=== PATIENT | female | born 1955 | race Caucasian/White ===

== ENCOUNTER 2019-10-09 01:34 | Emergency (ER) | payer MEDICARE, SELFPAY ==
--- NOTE | ~2019-10-09 | XR_ITS ---
EXAMINATION: XR ribs RT 2V w CXR 2V DATE: 10/09/2019 02:37 INDICATION: Right chest wall pain. TECHNIQUE: Frontal and lateral views of the chest and 3 views of the right ribs were obtained. COMPARISON: None. FINDINGS: CHEST TWO VIEWS: There is mild elevation of right hemidiaphragm. There is mild atelectasis in right m id and lower lung zones. No pleural effusion or pneumothorax. The heart size is normal. Surgical clip s overlie the right hilum. Surgical clips in the right upper quadrant are likely from cholecystectomy . There is a 2.9 cm sclerotic lesion in proximal left humerus. RIGHT RIBS: There are old healed fractures of right third and fourth ribs. IMPRESSION: 1. No acute rib fracture. 2. Mild atelectasis in right mid and lower lung zones. 3. Mild elevation of right hemidiaphragm. 4. Sclerotic lesion in proximal left humerus. The differential diagnosis includes benign lesions such as enchondroma, osteonecrosis, and benign bone island and less likely metastatic disease. Reviewed, dictated and finalized at location A. IMPRESSION: 1. No acute rib fracture. 2. Mild atelectasis in right mid and lower lung zones. 3. Mild elevation of right hemidiaphragm. 4. Sclerotic lesion in proximal left humerus. The differential diagnosis includ es benign lesions such as enchondroma, osteonecrosis, and benign bone island an d less likely metastatic disease.
[2019-10-09 01:35] VITALS: BP 162/82; PULSE 88; RESP 18; TEMP 36.5; O2SAT 100
--- NOTE | 2019-10-09 01:46 | ED.FALL ---
HPI - Fall General Chief Complaint: Fall Stated Complaint: right breast pain Time Seen by Provider: 10/09/19 01:45 Source: patient Mode of arrival: ambulatory Limitations: no limitations History of Present Illness HPI Narrative: Patient is a 64-year-old female who presents for evaluation of right-sided chest wall pain and right breast pain following a fall. Patient states that she tripped and fell on the , landing on her right side and stating that most of her weight landed onto her breast. Patient denies any bruising or rash, but states she has been quite sore. She denies any cough or shortness of breath. She denies any central chest pain, shoulder pain, jaw pain. Patient only has pain if she moves or leans forward. Patient has taken naproxen without much improvement in her symptoms. No other arm pain, hip pain, other extremity pain. No head trauma or loss of consciousness. Related Data Home Medications Medication Instructions Recorded Confirmed fluticasone propionate INTRANASAL 10/09/19 rosuvastatin mg 10/09/19 sertraline mg 10/09/19 Allergies Allergy/AdvReac Type Severity Reaction Status Date / Time metronidazole Allergy Unknown Unknown Verified 10/09/19 01:44 codeine AdvReac Intermediate Vomiting Verified 10/09/19 01:44 Review of Systems Review of Systems: Narrative: CONSTITUTIONAL: Denies fever CARDIOVASCULAR: Denies chest pain, reports right breast pain RESPIRATORY: Denies cough or dyspnea. GASTROINTESTINAL: Denies abdominal pain SKIN: Denies rash MUSCULOSKELETAL: Denies back pain NEUROLOGIC: Denies headache PMFSH Past Medical History Medical History Histoplasmosis Surgical History Surgical History (Updated 10/09/19 @ 02:11 by Maria Antonia Gomez MD) History of carpal tunnel surgery Hx of cholecystectomy Social History Social History (Updated 10/09/19 @ 02:11 by Maria Antonia Gomez MD) Smoking status: Never smoker Alcohol intake: never Substance use: never Gender identity (if verbalized by the patient): Female Exam Narrative: Exam Narrative: GENERAL: Awake, alert, conversant HEAD: Normocephalic, atraumatic. EYES: PERRLA and EOMI. ENT: Nares clear, no rhinorrhea or epistaxis. Mucous membranes moist. NECK: Supple. CHEST: No respiratory distress, breathing even and non labored, right-sided breast tenderness, no ecchymoses, areole and nipple appear normal, no contusion, no hematoma, no discharge from the nipple, no axillary lymphadenopathy, no central chest wall tenderness, no upper chest tenderness HEART: Regular rate, sinus rhythm ABDOMEN:Non distended, non tender EXTREMITIES: Normal range of motion. No edema. SKIN: Warm, dry, no rash. NEURO:No focal deficits. Alert and oriented x3 Course Vital Signs Vital signs: Vital Signs Temperature 36.5 C 10/09/19 01:35 Pulse Rate 88 10/09/19 01:35 Respiratory Rate 18 10/09/19 01:35 Blood Pressure 162/82 H 10/09/19 01:35 Pulse Oximetry 100 10/09/19 01:35 Temperature 36.5 C 10/09/19 01:35 Pulse Rate 75 10/09/19 03:24 Respiratory Rate 16 10/09/19 03:24 Blood Pressure 161/83 H 10/09/19 03:24 Pulse Oximetry 98 10/09/19 03:24 MDM - Fall MDM Narrative Medical decision making narrative: Patient presented for evaluation of chest wall pain following a fall. Patient without any anginal type symptoms. Pain is only with movement and is reproducible on exam making musculoskeletal etiology most likely. Breast exam is normal. No evidence of hematoma, vesicular changes, abnormal breast appearance, mass on exam. No axillary lymphadenopathy. No evidence of infection or cellulitic changes. There again is chest wall tenderness which exactly reproduces pain. Chest x-ray obtained and shows no acute rib fractures, pneumothorax, consolidation. Patient will be discharged home, advised to take anti-inflammatories and follow-up with her primary care provider. Diff
[2019-10-09] MEDS: KETOROLAC (*BKC) 60 MG/2 ML VIAL 30 MG IM (02:11)
--- NOTE | 2019-10-09 02:21 | PC.NURSE ---
Patient being taken to radiology.
[2019-10-09 03:24] VITALS: BP 161/83; PULSE 75; RESP 16; O2SAT 98
== END 2019-10-09 03:26 | disposition home or self-care (01) ==
PROVIDERS: Emergency Provider Emergency Medicine; PCP Physician Assistant
DX: N64.4 Mastodynia (principal)
CPT/HCPCS: 71046; 71100; 96372; 99283; J1885

== ENCOUNTER 2019-11-28 14:40 | Emergency (ER) | payer MEDICARE, SELFPAY ==
--- NOTE | ~2019-11-28 | XR_ITS ---
XR chest 2V DATE: 11/28/2019 16:57 INDICATION: Palpitations for 3 days TECHNIQUE: PA and lateral views COMPARISON: 10/09/2019 FINDINGS: There is moderately prominent elevation the right leaf of the diaphragm. There is discoid a telectasis or scarring in the right mid and lower lung zone. These findings are stable since 0. No pulmonary infiltrate or consolidation, pleural effusion or pneumothorax or pulmonary vascular rambo estion. Heart size is normal. Surgical clips in the right posterior upper mediastinum. Again noted is a sclerotic lesion at the proximal left humerus, benign in appearance, which may be se condary to bone infarct or cartilaginous tumor. Osteosclerotic metastatic lesion is not excluded but is less likely; there is no corresponding evidence of a sclerotic metastasis elsewhere. There is distention scoliosis and degenerative spurring of the thoracic spine. There is moderate diff use osteopenia. Surgical clips, right upper quadrant, likely due to cholecystectomy. IMPRESSION: Chronic elevation right diaphragm Chronic discoid atelectasis or more likely scarring in the right mid and lower lung zones No active cardiopulmonary disease or significant change since 10/09/2019 Reviewed, dictated and finalized at location A.
--- NOTE | 2019-11-28 14:48 | ECG_ITS ---
Measurements Intervals [place] Rate: 104 P: 46 AR: 144 QRS: -22 QRSD: 90 T: 57 QT: 324 QTc: 428 Interpretive Statements SINUS TACHYCARDIA LOW QRS VOLTAGE IN PRECORDIAL LEADS LEFT VENTRICULAR HYPERTROPHY AND ST-T CHANGE BORDERLINE R WAVE PROGRESSION, ANTERIOR LEADS MINIMAL Q WAVES- HIGH LATERAL LEADS BORDERLINE ECG Electronically Signed On 11-28-2019 15:01:25 CDT by Caio Rey D.O.
[2019-11-28 15:27] VITALS: BP 128/72; PULSE 109; RESP 17; TEMP 37.1; O2SAT 97
[2019-11-28 15:40] LABS: Basophils Absolute Auto 0.1 K/mm3 (0.0-0.1); Eosinophils Absolute Auto 0.1 K/mm3 (0-0.3); Eosinophils Percent Auto 1.5 % (0-4.4); Hematocrit 38.6 % (37.0-47.0); Hemoglobin 12.8 g/dL (12.0-15.0); Immature Granulocyte Absolute 0.01 K/mm3 (0.00-0.031); Immature Granulocyte Percent A 0.2 % (0-0.5); Immature Platelet Fraction Pct 2.2 % (0.9-11.2); Lymphocytes Absolute Auto 1.34 K/mm3 (0.9-3.2); Lymphocytes Percent Auto 21.6 % (18.3-44.2); Mean Corpuscular HGB Conc 33.2 g/dl (32-36); Mean Corpuscular Hemoglobin 28.6 pg (26-34); Mean Corpuscular Volume 86.4 fl (80-100); Mean Platelet Volume 9.8 fl (7.4-10.4); Monocytes Absolute Auto 0.6 K/mm3 (0.1-0.6); Monocytes Percent Auto 9.2 % (2.6-8.5); Neutrophils Absolute Auto 4.1 K/mm3 (1.3-6.7); Neutrophils Percent Auto 66.5 % (45.5-73.1); Platelet Count Result 288 k/mm3 (150-375); Red Blood Count 4.47 M/mm3 (4.2-5.4); Red Cell Distribution Width 13.7 % (11.5-14.5); White Blood Count 6.2 K/mm3 (4.5-10.0)
[2019-11-28 15:50] LABS: Anion Gap 13 mmol/L (8-16); Blood Urea Nitrogen 15 mg/dL (7-17); Calcium 9.3 mg/dL (8.4-10.2); Carbon Dioxide 25 mmol/L (22-30); Chloride 103 mmol/L (98-107); Estimated CRCL calculation 66 ml/min; Estimated Glomerular Filt Rate > 60; Glucose 111 mg/dL (65-105); Potassium 4.3 mmol/L (3.4-5.0); Sodium 141 mmol/L (137-145)
[2019-11-28 15:53] LABS: Prothrombin Time 12.7 Seconds (11.1-14.7)
[2019-11-28 15:54] LABS: Partial Thromboplastin Time 26.3 SECONDS (22.3-36.8)
[2019-11-28 16:06] LABS: Troponin I < 0.012 ng/mL (0.000-0.034)
--- NOTE | 2019-11-28 16:28 | ED.ARRPALP ---
HPI - Arrhythmia/Palpitations General Chief Complaint: Arrhythmia/Palpitations Stated Complaint: my heart is fluttering Time Seen by Provider: 11/28/19 16:18 Source: patient Mode of arrival: ambulatory Limitations: no limitations History of Present Illness HPI narrative: This is a 64-year-old female that presents to the emergency department for palpitations x2 days. Also reports feeling short of breath with exertion. Denies fever, cough, chest pain, or lower extremity edema. Related Data Home Medications Medication Instructions Recorded Confirmed fluticasone propionate INTRANASAL 10/09/19 rosuvastatin mg 10/09/19 sertraline mg 10/09/19 Allergies Allergy/AdvReac Type Severity Reaction Status Date / Time metronidazole Allergy Unknown Unknown Verified 11/28/19 16:33 codeine AdvReac Intermediate Vomiting Verified 11/28/19 16:33 Review of Systems Review of Systems: Narrative: CONSTITUTIONAL: Denies fever ENT: Denies rhinorrhea, congestion CARDIOVASCULAR: Reports palpitations. Denies chest pain, or edema. RESPIRATORY: Reports dyspnea. Denies cough All systems reviewed & are unremarkable except as noted in HPI and below PMFSH Past Medical History Medical History (Updated 11/28/19 @ 19:04 by Kimberly Lin PA-C) Histoplasmosis History of hyperlipidemia Surgical History Surgical History (Updated 10/09/19 @ 02:11 by Maria Antonia Gomez MD) History of carpal tunnel surgery Hx of cholecystectomy Social History Social History (Updated 10/09/19 @ 02:11 by Maria Antonia Gomez MD) Smoking status: Never smoker Alcohol intake: never Substance use: never Gender identity (if verbalized by the patient): Female Exam Narrative: Exam Narrative: GENERAL: Well-appearing, obese, and in no acute distress. HEAD: Normocephalic, atraumatic. EYES: EOMI. NECK: Supple. No adenopathy or masses. No carotid bruits or JVD CHEST: Clear to auscultation. No respiratory distress. No wheezes rales or rhonchi HEART: Regular rate and rhythm. No murmur heard. Normal peripheral pulses. EXTREMITIES: Normal range of motion. No edema. SKIN: Warm, dry, no rash. NEURO: No focal deficits. Alert and oriented x3. PSYCH: Normal mood and affect Course Consultations Consultation #1: Spoke with Dr. Escudero who will follow-up in clinic. Date: 11/28/19 Time: 19:04 Vital Signs Vital signs: Vital Signs Temperature 98.7 F 11/28/19 15:27 Pulse Rate 109 H 11/28/19 15:27 Respiratory Rate 17 11/28/19 15:27 Blood Pressure 128/72 11/28/19 15:27 Pulse Oximetry 97 11/28/19 15:27 Temperature 98.7 F 11/28/19 15:27 Pulse Rate 85 11/28/19 18:55 Respiratory Rate 24 H 11/28/19 18:55 Blood Pressure 170/104 H 11/28/19 18:55 Pulse Oximetry 98 11/28/19 18:55 MDM - Arrhythmia/Palpitations MDM Narrative Medical decision making narrative: Patient presents to the emergency department for feeling of palpitations over the last couple of days. Was also reporting some shortness of breath. Patient's blood pressure has been elevated to the 120s to 160s systolic. Otherwise vitals are normal. Patient's heart rate has been mostly in the 80s. She is in normal sinus rhythm. I did see 1 PVC while she was on the monitor. CBC and metabolic panel without concerning findings. Baseline and 3-hour troponin are negative. BNP is normal. D-dimer is negative. Chest x-ray is without acute findings. EKG is without concerning changes. Patient able to ambulate in the ED and maintain normal oxygen saturation. Patient was updated on case findings. Spoke with Dr. Escudero who will follow-up in clinic. Patient is stable and felt appropriate for the outpatient evaluation. She was given warnings to return to the ER Lab Data Attestation: I reviewed the patient's lab results. Result diagrams: 11/28/19 15:31 11/28/19 15:31 Labs: Lab Results 11/28/19 11/28/19 11/28/19 Range/Units 15:31 15:31 15:31 WBC 6.2
[2019-11-28 16:34] VITALS: BP 167/109; PULSE 97; RESP 20; O2SAT 97
[2019-11-28 16:43] LABS: D Dimer 0.35 ug/mL (<0.48)
[2019-11-28 16:54] LABS: NT Pro B Type Natriuretic Pept 78 PG/ML (5-100)
[2019-11-28 18:26] LABS: Troponin I < 0.012 ng/mL (0.000-0.034)
[2019-11-28 18:55] VITALS: BP 170/104; PULSE 85; RESP 24; O2SAT 98
[2019-11-28 19:05] VITALS: BP 162/100; BP 164/104
[2019-11-28 19:25] VITALS: BP 168/81; PULSE 88; RESP 17; O2SAT 99
== END 2019-11-28 19:25 | disposition home or self-care (01) ==
PROVIDERS: Emergency Medicine; Physician Assistant; Emergency Provider Emergency Medicine; PCP Physician Assistant
DX: R00.2 Palpitations (principal); I10 Essential (primary) hypertension; E78.5 Hyperlipidemia, unspecified; B39.9 Histoplasmosis, unspecified; R00.0 Tachycardia, unspecified; R94.31 Abnormal electrocardiogram [ECG] [EKG]; I51.7 Cardiomegaly; R06.02 Shortness of breath
CPT/HCPCS: 36415; 71046; 80048; 83880; 84484; 85025; 85055; 85380; 85610; 85730; 93005; 99284

== ENCOUNTER 2020-12-16 13:28 | Outpatient (CLI) | payer MEDICARE, SELFPAY ==
--- NOTE | ~2020-12-16 | MM_ITS ---
EXAMINATION: MM screening hill BI w joaquin HISTORY: Screening mammogram TECHNIQUE: Craniocaudal and mediolateral oblique 3-D tomosynthesis images were obtained and synthetic 2-D images were generated. CAD analysis was submitted and interpreted. COMPARISON: 02/01/2019, 02/01/2017 bilateral digital screening mammogram examinations BREAST PARENCHYMAL COMPOSITION: The breasts are almost entirely fatty. FINDINGS: There is no evidence of suspicious mass, calcification, or architectural distortion to sugg est malignancy in either breast. There has been no suspicious interval change. IMPRESSION: 1. No mammographic evidence of malignancy. 2. Recommend routine screening mammography in one year. BI-RADS Category 1: Negative Reviewed, dictated and finalized at location A.
--- NOTE | ~2020-12-16 | DEXA_ITS ---
Bone Density Report Name: Ruma Christiansen Age: 65 Sex: Female Ethnicity: White Date of : 1955 Indication: postmenopausal; inflammatory bowel disease; prior fracture; Referring Provider: StevenIrma Study: Bone densitometry was performed. Exam Date: December 16, 2020 Accession number: [id number] Bone Density: Region BMD T-score Z-score Classification AP Spine (L1-L4) 1.004 -0.4 1.4 Normal Femoral Neck (Left) 0.596 -2.3 -0.7 Osteopenia Total Hip (Left) 0.829 -0.9 0.4 Normal Total Hip Bilateral Avg 0.838 -0.8 0.5 Normal Femoral Neck (Right) 0.618 -2.1 -0.5 Osteopenia Total Hip (Right) 0.845 -0.8 0.5 Normal World Health Organization criteria for BMD impression classify patients as: Normal (T-score at or above -1.0), Osteopenia (T-score between -1.0 and -2.5), or Osteoporosis (T-score at or below -2.5). 10-year Fracture Risk(1): Major Osteoporotic Fracture 16% Hip Fracture 2.7% Reported Risk Factors: [place] (), Neck BMD=0.596, BMI=45.3, previous fracture (1) FRAX(R) Version 3.08. Fracture probability calculated for an untreated patient. Fracture probability may be lower if the patient has received treatment. Previous Exams: Region Exam Age BMD T-score BMD Change BMD Change Date g/cm2 vs Baseline vs Previous AP Spine(L1-L4) 12/16/2020 65 1.004 -0.4 -0.002(-0.2%) -0.002(-0.2%) 05/21/2017 61 1.006 -0.4 Total Hip(Left) 12/16/2020 65 0.829 -0.9 -0.068(-7.6%)* -0.068(-7.6%)* 05/21/2017 61 0.897 -0.4 Total Hip(Right) 12/16/2020 65 0.845 -0.8 -0.031(-3.5%)* -0.031(-3.5%)* 05/21/2017 61 0.876 -0.5 *Denotes significance at 95% confidence level, LSC for AP Spine = 0.022 g/cm2, LSC for Total Hip = 0.027 g/cm2 Clinical Information Provided by Patient: Has had a low trauma fracture Has used the following medications: Vitamin D, Calcium Has the following medical conditions: Inflammatory bowel diseases Patient maximum height was 61 Menopause Age: 49 No regular weight bearing exercise Drinks caffeinated beverages Onset of menses at age 11 Number of children 1 Impression: The patient has low bone mass, based on the Left Femoral Neck T-score. The patient has an estimated ten-year risk of hip fracture of 2.7% and an estimated ten-year risk of major fracture of 16%, based on the WHO FRAX algorithm. The patient has risk factors, including: previous fracture. The BMD for the Total Hip(Left) decreased, changing by -7.6
== END 2020-12-16 13:29 | disposition home or self-care (01) ==
LOC: ANHIMG 13:30
PROVIDERS: PCP Internal Medicine; Visit Provider Internal Medicine
DX: Z12.31 Encounter for screening mammogram for malignant neoplasm of breast (principal); Z78.0 Asymptomatic menopausal state; M85.89 Other specified disorders of bone density and structure, multiple sites
CPT/HCPCS: 77063; 77067; 77080

== ENCOUNTER 2021-12-23 15:44 | Outpatient (CLI) | payer MEDICARE, SELFPAY ==
[2021-12-23 15:58] LABS: Basophils Percent Auto 0.2 % (0.2-1.2); Hematocrit 35.3 % (37.0-47.0); Hemoglobin 11.1 g/dL (12.0-15.0); Immature Granulocyte Absolute 0.05 K/mm3 (0.00-0.031); Immature Granulocyte Percent A 0.4 % (0-0.5); Immature Reticulocyte Fraction 21.7 % (3.0-15.9); Lymphocytes Absolute Auto 1.01 K/mm3 (0.9-3.2); Lymphocytes Percent Auto 8.1 % (18.3-44.2); Mean Corpuscular HGB Conc 31.4 g/dl (32-36); Mean Corpuscular Hemoglobin 24.6 pg (26-34); Mean Corpuscular Volume 78.1 fl (80-100); Mean Platelet Volume 8.8 fl (7.4-10.4); Monocytes Absolute Auto 0.7 K/mm3 (0.1-0.6); Monocytes Percent Auto 5.9 % (2.6-8.5); Neutrophils Absolute Auto 10.6 K/mm3 (1.3-6.7); Neutrophils Percent Auto 85.4 % (45.5-73.1); Platelet Count Result 412 k/mm3 (150-375); Red Blood Count 4.52 M/mm3 (4.2-5.4); Reticulocyte Hemoglobin Conten 24.7 pg (28.2-35.7); Reticulocyte Percent 1.56 % (0.7-4.3); Reticulocytes Absolute 0.07 B/L (32.2-175.7); White Blood Count 12.4 K/mm3 (4.5-10.0)
[2021-12-23 16:04] LABS: Platelet Estimate Increased (Adequate); Poikilocytosis 1+ (NORMAL); Schistocytes None Seen (NORMAL); Target Cells 1+ (NORMAL)
[2021-12-23 16:28] LABS: Iron 37 ug/dL (37-170)
[2021-12-23 16:30] LABS: Alanine Aminotransferase 16 U/L (6-35); Albumin Level 4.7 g/dL (3.5-5.1); Alkaline Phosphatase 94 U/L (38-126); Anion Gap 12 mmol/L (8-16); Aspartate Amino Transferase 24 U/L (14-36); Bilirubin,Total 0.4 mg/dL (0.2-1.3); Blood Urea Nitrogen 22 mg/dL (7-17); Calcium 8.7 mg/dL (8.4-10.2); Carbon Dioxide 24 mmol/L (22-30); Chloride 100 mmol/L (98-107); Estimated Glomerular Filt Rate > 60; Glucose 114 mg/dL (65-110); Lactate Dehydrogenase 166 U/L (120-246); Potassium 4.3 mmol/L (3.4-5.0); Sodium 136 mmol/L (137-145)
[2021-12-23 16:38] LABS: Percent Iron Saturation 8 % (20-50)
[2021-12-23 17:04] LABS: Ferritin 5.48 ng/mL (11.1-264)
[2021-12-23 17:36] LABS: Folic Acid 16.7 ng/mL (2.76->20)
[2021-12-26 08:49] LABS: Methylmalonic Acid 453 nmol/L (87-318)
== END 2021-12-23 15:45 | disposition home or self-care (01) ==
LOC: ANHLAB 15:46
PROVIDERS: PCP Internal Medicine; Visit Provider Internal Medicine Hematology & Oncology
DX: D64.9 Anemia, unspecified (principal)
CPT/HCPCS: 36415; 80053; 82607; 82728; 82746; 83540; 83550; 83615; 83921; 85025; 85046

== ENCOUNTER 2022-02-10 13:42 | Outpatient (CLI) | payer MEDICARE, SELFPAY ==
[2022-02-10 14:04] LABS: Basophils Percent Auto 0.6 % (0.2-1.2); Eosinophils Absolute Auto 0.1 K/mm3 (0-0.3); Eosinophils Percent Auto 1.5 % (0-4.4); Hematocrit 36.9 % (37.0-47.0); Immature Granulocyte Absolute 0.01 K/mm3 (0.00-0.031); Immature Granulocyte Percent A 0.2 % (0-0.5); Immature Reticulocyte Fraction 12.6 % (3.0-15.9); Lymphocytes Absolute Auto 0.86 K/mm3 (0.9-3.2); Lymphocytes Percent Auto 16.2 % (18.3-44.2); Mean Corpuscular HGB Conc 32.5 g/dl (32-36); Mean Corpuscular Hemoglobin 27.5 pg (26-34); Mean Corpuscular Volume 84.4 fl (80-100); Mean Platelet Volume 8.6 fl (7.4-10.4); Monocytes Absolute Auto 0.6 K/mm3 (0.1-0.6); Monocytes Percent Auto 11.7 % (2.6-8.5); Neutrophils Absolute Auto 3.7 K/mm3 (1.3-6.7); Neutrophils Percent Auto 69.8 % (45.5-73.1); Platelet Count Result 238 k/mm3 (150-375); Red Blood Count 4.37 M/mm3 (4.2-5.4); Red Cell Distribution Width 20.9 % (11.5-14.5); Reticulocyte Hemoglobin Conten 33.9 pg (28.2-35.7); Reticulocyte Percent 2.09 % (0.7-4.3); Reticulocytes Absolute 0.09 B/L (32.2-175.7); White Blood Count 5.3 K/mm3 (4.5-10.0)
[2022-02-10 17:34] LABS: Lactate Dehydrogenase 172 U/L (120-246)
[2022-02-10 18:19] LABS: Iron 46 ug/dL (37-170)
[2022-02-10 18:43] LABS: Folic Acid > 20.0 ng/mL (2.76->20)
[2022-02-10 18:46] LABS: Percent Iron Saturation 12 % (20-50)
[2022-02-13 03:51] LABS: Methylmalonic Acid 271 nmol/L (87-318)
== END 2022-02-10 13:43 | disposition home or self-care (01) ==
LOC: ANHLAB 13:43
PROVIDERS: PCP Internal Medicine; Visit Provider Internal Medicine Hematology & Oncology
DX: D64.9 Anemia, unspecified (principal)
CPT/HCPCS: 36415; 82607; 82728; 82746; 83540; 83550; 83615; 83921; 85025; 85046

== ENCOUNTER 2022-03-31 15:09 | Outpatient (CLI) | payer MEDICARE, SELFPAY ==
--- NOTE | ~2022-03-31 | MM_ITS ---
EXAMINATION: MM screening hill BI w joaquin HISTORY: Screening mammogram TECHNIQUE: Craniocaudal and mediolateral oblique 3-D tomosynthesis images were obtained and synthetic 2-D images were generated. CAD analysis was submitted and interpreted. COMPARISON: 12/16/2020, 02/01/2019, 02/01/2017 bilateral screening mammogram examinations BREAST PARENCHYMAL COMPOSITION: The breasts are almost entirely fatty. FINDINGS: There is no evidence of suspicious mass, calcification, or architectural distortion to sugg est malignancy in either breast. There has been no suspicious interval change. IMPRESSION: 1. No mammographic evidence of malignancy. 2. Recommend routine screening mammography in one year. BI-RADS Category 1: Negative Reviewed, dictated and finalized at location A. [employer]
== END 2022-03-31 15:10 | disposition home or self-care (01) ==
PROVIDERS: PCP Internal Medicine; Visit Provider Internal Medicine
DX: Z12.31 Encounter for screening mammogram for malignant neoplasm of breast (principal)
CPT/HCPCS: 77063; 77067

== ENCOUNTER 2023-06-09 13:10 | Outpatient (CLI) | payer MEDICARE, SELFPAY ==
--- NOTE | ~2023-06-09 | DEXA_ITS ---
Bone Density Report Name: RENÉ CHILDERS Age: 67 Sex: Female Ethnicity: White Date of : 1955 Indication: postmenopausal; screening for osteoporosis; inflammatory bowel disease; history of glucocorticoids; Referring Provider: ALY, ARIELLE Study: Bone densitometry was performed. Exam Date: June 09, 2023 Accession number: [id number] Bone Density: Region BMD T-score Z-score Classification AP Spine(L1-L4) 0.971 -0.7 1.3 Normal Femoral Neck (Left) 0.576 -2.5 -0.7 Osteoporosis Total Hip (Left) 0.985 0.3 1.8 Normal Femoral Neck (Right) 0.623 -2.0 -0.3 Osteopenia Total Hip (Right) 0.947 0.0 1.5 Normal Total Hip Mean 0.966 0.2 1.7 Normal World Health Organization criteria for BMD impression classify patients as: Normal (T-score at or above -1.0), Osteopenia (T-score between -1.0 and -2.5), or Osteoporosis (T-score at or below -2.5). 10-year Fracture Risk: FRAX not reported because: Some T-score for Spine Total or Hip Total or Femoral Neck at or below -2.5 Clinical Information Provided by Patient: Has taken Glucocorticoids Has used the following medications: Vitamin D, Calcium Has the following medical conditions: Inflammatory bowel diseases Patient maximum height was 61 Menopause Age: 49 No regular weight bearing exercise Drinks caffeinated beverages Onset of menses at age 11 Number of children 1 Impression: The patient has osteoporosis, based on the Left Femoral Neck T-score. The patient has risk factors, including: history of glucocorticoid therapy. Discussion: INCREASED RISK OF FRACTURE. BONE DENSITY IS UNDESIRABLY LOW AT ONE OR MORE SKELETAL SITES, CONSISTENT WITH POSTMENOPAUSAL OSTEOPOROSIS. This patient's lowest T-score meets the World Health Organization's (WHO) criteria for osteoporosis at one or more sites (T-score -2.5 or below). In untreated patients, the risk of osteoporotic fracture increases approximately two-fold for each 1.0 SD decrease in T-score. Low bone density is not the only risk factor for fracture; also consider factors such as patient's age, frailty or poor health, risk of falling, risk of injury, previous osteoporotic fracture, family history of osteoporosis, cigarette smoking, low body weight, etc. Not everyone with low bone mineral density has osteoporosis; osteomalacia and other metabolic bone disorders should also be considered. Patients who have osteoporosis should be evaluated for specific diseases and conditions (secondary causes) that may cause or contribute to bone loss. The [place] [employer]ocrinologists (AACE) and National Osteoporosis Foundation (NOF) recommend pharmacologic intervention for all postmenopausal women whose T-score is in this range. The patient should follow a healthful lifestyle (good nutrition with adequate calciu
--- NOTE | ~2023-06-09 | MM_ITS ---
EXAMINATION: MM screening hill BI w joaquin HISTORY: Screening TECHNIQUE: Craniocaudal and mediolateral oblique 3-D tomosynthesis images were obtained and synthetic 2-D images were generated. CAD analysis was submitted and interpreted. COMPARISON: Comparison to multiple prior studies sequentially, with oldest reviewed study dated 01/22. BREAST PARENCHYMAL COMPOSITION: Not Dense: Breast are almost entirely fatty. FINDINGS: There is no evidence of suspicious mass, calcification, or architectural distortion to sugg est malignancy in either breast. There has been no suspicious interval change. IMPRESSION: 1. No mammographic evidence of malignancy. 2. Recommend routine screening mammography in one year. BI-RADS Category 1: Negative Reviewed, dictated and finalized at location B.
== END 2023-06-09 13:11 | disposition home or self-care (01) ==
LOC: ANHIMG 13:12
PROVIDERS: PCP Internal Medicine; Visit Provider Internal Medicine
DX: Z12.31 Encounter for screening mammogram for malignant neoplasm of breast (principal); M81.0 Age-related osteoporosis without current pathological fracture; Z13.820 Encounter for screening for osteoporosis
CPT/HCPCS: 77063; 77067; 77080

== ENCOUNTER 2023-09-06 17:39 | Emergency (ER) | payer MEDICARE, SELFPAY ==
--- NOTE | ~2023-09-06 | XR_ITS ---
EXAM: XR hip RT min 2V DATE: 09/06/2023 18:08 HISTORY: lower back pain extending into right hip . COMPARISON: None available. FINDINGS: Decreased mineralization. No fracture or dislocation. No lytic or blastic lesion. Degenera tive changes in the lumbar spine. Moderate degenerative change in the right SI joint and right hip. N o erosion or periosteal change. Soft tissues within normal limits. IMPRESSION: No acute osseous finding in the right hip. Reviewed, dictated and finalized at location K.
--- NOTE | ~2023-09-06 | XR_ITS ---
EXAM: XR lumbar spine 2-3V DATE: 09/06/2023 18:08 HISTORY: low back pain with radiculopathy right side . COMPARISON: None available. FINDINGS: 5 nonrib-bearing lumbar-type vertebral bodies. Pedicles intact. 5 mm anterolisthesis at L4 -5. Vertebral body heights preserved. Multilevel moderate disc space narrowing. Multiple level margin al osteophytosis including large bridging anterior and lateral osteophytes. Severe lower lumbar facet hypertrophy and sclerosis. No fracture. IMPRESSION: Grade 1 anterolisthesis at L4-5. Moderate degenerative disc disease at all lumbar levels, including multilevel large bridging osteophytes. Severe lower lumbar facet arthropathy. Reviewed, dictated and finalized at location K.
--- NOTE | 2023-09-06 17:41 | ED.BACK ---
HPI - Back Pain/Injury General Chief Complaint: Back Pain/Injury Stated Complaint: Lower Back/Right Leg/Knee Pain Time Seen by Provider: 09/06/23 17:41 Source: patient Mode of arrival: ambulatory Limitations: no limitations History of Present Illness HPI Narrative: Ruma is a 67-year-old female patient presenting to the clinic today with complaints of low back pain across the low back with pain radiating into the right hip and down the right leg into the knee. She reports this been going on for couple days. Symptoms are worse with ambulation and movement but seemed to calm down when she is sitting. History of hip bursitis and osteoarthritis many years ago. Denies any injury. States she called her doctor's office and he is out of town and they wanted her to come in for x-rays. She denies any saddle anesthesia or loss of bowel or bladder. Pain is sharp and burning and is a 8/10 with movement but is 1 to 2/10 while sitting Related Data Home Medications Medication Instructions Recorded Confirmed fluticasone propionate 50 intranasal 10/09/19 mcg/actuation nasal spray,suspension rosuvastatin 10 mg tablet mg 10/09/19 sertraline 100 mg tablet mg 10/09/19 Allergies Allergy/AdvReac Type Severity Reaction Status Date / Time metronidazole Allergy Unknown Unknown Verified 09/06/23 17:59 codeine AdvReac Intermediate Vomiting Verified 09/06/23 17:59 Review of Systems Review of Systems: Pertinent positives per HPI. Patient denies any fever, chills, rash, headache, visual changes, dizziness, cough, runny nose, sore throat, shortness of breath, chest pain, palpitations, nausea, vomiting, diarrhea, constipation, abdominal pain, or any urinary issues. FORMERLY [facility], [facility]1983 Past Medical History Medical History Histoplasmosis History of hyperlipidemia Surgical History Surgical History History of carpal tunnel surgery Hx of cholecystectomy Social History Social History Smoking status: Never smoker Alcohol intake: never Substance use: never Gender identity (if verbalized by the patient): Female Comments At the time of my signature, I reviewed and agree with the nursing past medical, surgical, social, and family history. There is no relevant family history pertinent to the patient complaint. Exam Narrative: General: Well-developed, well nourished, in no apparent distress Head: Normocephalic, atraumatic. Cardio: Regular rate and rhythm, s1 and s2 normal, no murmur appreciated. Resp: Clear to auscultation bilaterally, no rhonchi, rales, wheezing or rubs. 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 Level of Care: Express Care Visit Vital Signs Vital signs: Vital signs reviewed MDM - Back Pain/Injury MDM Narrative Medical decision making narrative: At the time of visit patient is resting comfortably on the exam table. Patient appears to be nontoxic. Diagnostics: X-ray of the right hip and lumbar spine was performed. X-ray of the right hip shows moderate degenerative change in the right SI joint and in the right hip. X-ray also shows moderate to severe lumbar osteoarthritis. Plan: I suspect patient has low back pain with sciatica. Prescription for Medrol Dosepak was sent to pharmacy. Supportive measures were discussed with the patient and they voiced understanding discharge instructions and agrees to
[2023-09-06 18:00] VITALS: BP 156/79; PULSE 88; RESP 20; TEMP 36.2; O2SAT 98
== END 2023-09-06 18:41 | disposition home or self-care (01) ==
PROVIDERS: Emergency Provider Nurse Practitioner Family; PCP Internal Medicine
DX: M54.16 Radiculopathy, lumbar region (principal); M47.898 Other spondylosis, sacral and sacrococcygeal region; M16.11 Unilateral primary osteoarthritis, right hip; E78.5 Hyperlipidemia, unspecified
CPT/HCPCS: 72100; 73502; 99214; G0463

== ENCOUNTER 2023-11-27 11:50 | Emergency (ER) | payer MEDICARE, SELFPAY ==
[2023-11-27 12:03] VITALS: BP 155/74; PULSE 104; RESP 16; TEMP 37.1; O2SAT 99
--- NOTE | 2023-11-27 12:12 | ED.NECK ---
HPI - Neck Pain/Injury General Chief Complaint: Neck Pain/Injury Stated Complaint: neck pain Time Seen by Provider: 11/27/23 12:15 Source: patient, RN notes reviewed and old records reviewed Mode of arrival: ambulatory Limitations: no limitations History of Present Illness HPI Narrative: Patient who reports that she has known cervical arthritis presents with complaints of neck pain. She reports that her current symptoms began with increased pain to the right side of her neck. She has been taking Tylenol and ibuprofen intermittently for her symptoms with moderate relief. States that this morning she awakened with similar pain to the left side. Range of motion is limited by pain. She denies all injury and trauma. Denies any fever, chills, sweats. No other complaints today Related Data Home Medications Medication Instructions Recorded Confirmed fluticasone propionate 50 intranasal 10/09/19 mcg/actuation nasal spray,suspension rosuvastatin 10 mg tablet mg 10/09/19 sertraline 100 mg tablet mg 10/09/19 alendronate 70 mg tablet mg PO 11/27/23 Allergies Allergy/AdvReac Type Severity Reaction Status Date / Time metronidazole Allergy Unknown Unknown Verified 09/06/23 17:59 codeine AdvReac Intermediate Vomiting Verified 09/06/23 17:59 Review of Systems Review of Systems: All systems reviewed & are unremarkable except as noted in HPI and below Constitutional: Constitutional: Reports no additional constitutional complaints ENT: Reports system reviewed and no additional complaints, except as documented Cardiovascular: Cardiovascular: Reports no additional cardiovascular complaints Respiratory: Respiratory: Reports no additional respiratory complaints Gastrointestinal: Gastrointestinal: Reports no additional gastrointestinal complaints Musculoskeletal: Musculoskeletal: Reports no additional musculoskeletal complaints, Reports as per HPI and Reports neck pain [facility] Past Medical History Medical History Histoplasmosis History of hyperlipidemia Surgical History Surgical History History of carpal tunnel surgery Hx of cholecystectomy Social History Social History Smoking status: Never smoker Alcohol intake: never Substance use: never Gender identity (if verbalized by the patient): Female Comments At the time of my signature, I reviewed and agree with the nursing past medical, surgical, social, and family history. There is no relevant family history pertinent to the patient complaint. Exam Const: General: cooperative, no acute distress, alert and awake Orientation/consciousness: oriented to person, oriented to place and oriented to time HENMT: Head: normal to inspection Mouth: Yes moist mucous membranes Neck: Neck: normal visual inspection, full ROM, no meningeal signs, no anterior neck swelling and tender Lymphatic: lymphadenopathy not noted Other: No C-spine tenderness, palpable muscle spasms, left Resp: Effort & Inspection: normal respiratory effort and able to speak in complete sentences Auscultation: clear to auscultation bilaterally, no crackles, no rales, no rhonchi and no wheezes Cardio: Palpation: normal PMI Rate: regular rate Rhythm: regular rhythm Heart sounds: S1 normal heart sound present and S2 normal heart sound present Back/Spine/Pelvis: Cervical Spine: cervical muscular tenderness, pain with cervical ROM, cervical spasm, No Cervical spine tenderness and cervical ROM abnormal (Decreased in all directions secondary to pain) Neuro: General: oriented to person, oriented to place and oriented to time Cranial nerves: Yes CN's II-XII intact bilaterally Psych: Appearance: grossly normal Thought process: Normal thought process present Insight: Good insight present (Psych) Judgement: Good judgement present (Psy
[2023-11-27] MEDS: predniSONE 20 MG TABLET 60 MG PO (12:35)
== END 2023-11-27 13:11 | disposition home or self-care (01) ==
PROVIDERS: Emergency Provider Nurse Practitioner Family; PCP Internal Medicine
DX: M54.12 Radiculopathy, cervical region (principal); R03.0 Elevated blood-pressure reading, without diagnosis of hypertension; E78.5 Hyperlipidemia, unspecified
CPT/HCPCS: 99213; G0463; J7512

== ENCOUNTER 2024-09-12 21:04 | Emergency (ER) | payer MEDICARE, SELFPAY ==
--- NOTE | ~2024-09-12 | XR_ITS ---
EXAM: XR knee LT 3V DATE: 09/12/2024 22:05 HISTORY: fall. PAIN . COMPARISON: None available. FINDINGS: Osteopenia. No fracture or dislocation. No lytic or blastic lesion. Mild tricompartmental left knee osteoarthritis. Small volume knee joint effusion. No erosion or periosteal change. Subcutan eous stranding over the patella and patellar tendon. IMPRESSION: No acute osseous finding in the left knee. Small left knee joint effusion. Anterior soft tissue stranding, correlate for contusion and/or patellar tendon pathology. Reviewed, dictated and finalized at location K. IMPRESSION: No acute osseous finding in the left knee. Small left knee joint ef fusion. Anterior soft tissue stranding, correlate for contusion and/or patellar tendon pathology.
--- OUTSIDE RECORDS SUMMARY | 2024-09-12 21:06 | XMS_ITS ---
Author Organization [facility] Address [address] [address] [place] [id number] Care Team Providers Care Rn [employer] Name Role Phone Skyler Nils Unavailable [phone] Problems Problem Type SNOMED Code ICD Code Onset Dates Problem Status W/U Status Risk Notes Problem Chronic kidney disease stage 2 (058880484) Chronic kidney disease, stage 2 (mild) (N18.2) Active confirmed Problem Essential hypertension (30543120) Essential hypertension (I10) Active confirmed Problem Hyperlipidemia (85874180) Hyperlipidemia, unspecified (E78.5) Active confirmed Problem Obesity (566534750) Obesity, unspecified (E66.9) Active confirmed Encounters Encounter Location Date Provider Diagnosis [facility] [address] [facility] [address] [place] [address] 10/01/2023 Nils Holland Chronic kidney disease, stage 2 (mild) N18.2 ; Essential hypertension I10 ; Hyperlipidemia, unspecified E78.5 and Obesity, unspecified E66.9 Assessments Encounter Date Diagnosis (ICD Code) Assessment Notes Treatment Notes Treatment Clinical Notes Section Notes 10/01/2023 Chronic kidney disease, stage 2 (mild) (ICD-10 - N18.2) 10/01/2023 Essential hypertension (ICD-10 - I10) 10/01/2023 Hyperlipidemia, unspecified (ICD-10 - E78.5) 10/01/2023 Obesity, unspecified (ICD-10 - E66.9) Plan Of Treatment No Information Progress Notes * Fady CHRISTIANSENTavares:1955 ([age] yo F)Acc No.[id number]:10/01/2023 Progress Notes Patient: Ruma GONZALEZ Provider: Guilherme WETZEL MD, F.A.C.P, F.A.S.N. :1955 A ge:67 Y S ex:Female Date:10/01/2023 Address:[address] [place] [address] Subjective: * Chief Complaints: * * Medical History: Objective: * Vitals: Assessment: * Assessment: 1. C hronic kidney disease, stage 2 (mild) - N18.2 (Primary) 2 . E ssential hypertension - I10 3 . H yperlipidemia, unspecified - E78.5 4 .?Obesity, unspecified - E66.9 Plan: * Treatment: * Billing Information: * Visit Code: 92620 Office Visit, New Pt., Level 5. * Procedure Codes: * Electronic signature of James Holland MD on 09/12/2024 at 09:06 PM CDT Sign off status: Pending * Provider: Guilherme WETZEL MD, F.A.C.P, F.A.S.N. Date: 10/01/2023 Generated for Printing/Faxing/eTransmitting on: 09/12/2024 09:06 PM CDT
--- OUTSIDE RECORDS SUMMARY | 2024-09-12 21:07 | XMS_ITS | Data Portability ---
Author Organization [facility] Address [address] [place] [address] Assessment No assessment recorded. Plan of Treatment Reminders Order Date Submit Date Provider Last Modified By Organization Details Last Modified Time Details Appointments None recorded . Lab HbA1c (hemoglo bin A1c), blood 2018 [facility], [address] [employer], [address], [place], [address], 9 08:20:25 TSH + free T4, serum 2018 [facility], [address] [employer] [address], [address], [place], [address], 9 08:20:23 vitamin D, 25-hydro xy, total, serum 2018 [facility], [address] [employer] [address], [address], [place], [address], 9 08:20:26 CMP, serum or plasma 2018 019 [facility], [address] [employer] [address], [address], [place], [address], 9 08:20:24 CK (creatin e kinase), total, serum 2018 019 [facility], [address] [employer] [address], [address], [place], [address], 9 08:20:26 lipid panel, serum 2018 [facility], [address] [place] [address], [address], [place], [address], 9 08:20:25 culture, abscess 2018 019 [facility], [address] [place] [address], [address], [place], [address], 9 15:08:45 culture, wound 2017 018 [facility], [address] [place] [address], [address], [place], [address], 8 17:11:22 Referral None recorded . Procedures None recorded . Surgeries None recorded . Imaging MAMMO, screenin g, digital, bilatera l 2018 [facility] (Mamm[facility]) , [address], [place], [address], 9 23:33:07 Medication Orders fluticas one propiona te 50 mcg/actu ation nasal spray,salas spension [address] [facility], [address] [place] [address], [address], 0 11:24:37 sertrali ne 100 mg tablet [address] [facility], [address] [place] [address], [address], 0 11:25:56 rosuvast atin 10 mg tablet [address] [facility], [address] [place] [address], [address], 9 15:04:56 omeprazo le 20 mg capsule, delayed release 2018 [facility], [address] [place] [address], [address], 9 17:21:09 triamcin olone acetonid e 0.1 % topical ointment 2018 [facility], [address] [place] [address], [address], 9 17:24:09 amoxicil braulio 500 mg tablet 2018 [facility], [address] [place] [address], [address], 9 14:33:47 ibuprofe n 800 mg tablet 2018 [place] [address], [address] [place] [address], [address], 9 17:20:50 sertrali ne 100 mg tablet 2018 [facility], [address] [place] [address], [address], 9 17:21:55 sulfamet hoxazole 800 mg-trime thoprim 160 mg tablet 2017 018 [facility], [address] [place] [address], [address], 8 14:37:29 ibuprofe n 800 mg tablet 2017 018 [place] [address], [address] [place] [address], [address], 8 14:30:14 cycloben zaprine 10 mg tablet 2017 018 [place] [address], [address] [place] [address], [address], 8 14:30:14 alendron ate 70 mg tablet [address] [facility], [address] [place], [address], 8 14:23:24 calcium 500 mg (as carbonat e)-vitam in D3 10 mcg (400 unit) tablet [address] [facility], [address] [place], [address], 8 14:26:05 Patient TargetsNo targets recorded. Patient Instructions Encounter Date Encounter Id Patient Instructions Last Modified By Organization Details Last Modified Time 06/11/2017 [id number] put heat on hip 20 min 2 times daily , sports cream [email or web address] Not available 06/13/2017 15:46:59 10/08/2017 [id number] start abx await culture f/u if not improving [email or web address] Not available 10/09/2017 21:49:00 f/u prn [email or web address] Not available 2017 21:49:15 Reason for Referral None Reported. Results Created Date Observation Date Name Description Value Unit Range Abnormal Flag Note LastModifiedBy Organization Detail LastModifiedTime 10/09/19 18 10/12/2017 cultu re, wound anaerobic culture Final report Not Available [facility] ([facility]) [address], [place], [address], 10/12/2017 17:11:22 10/09/19 18 10/12/2017 cultu re, wound result 1 Commen t No anaer obic growt h in 72 hours . Not Available [facility] ([facility]) [address], [place], [address], 10/12/2017 17:11:22 10/09/19 18 10/12/2017 cultu re, wound aerobic culture Final report abnormal Not Available [facility] ([facility]) [address] [place], [address], 10/12/2017 17:11:22 10/09/19 18 10/12/2017 cultu re, wound result 1 Staphy lococc us aureus abnormal Heavy growt h Based on resis tance to penic illin and susce ptibi lity to oxaci llin this isola te would be susce ptibl e to: * Penic illin ase-s table penic illin s; such as: Cloxa cilli n Diclo xacil braulio Nafci llin * Beta- lacta m/bet a-lac cj e inhib itor combi natio ns; such as: Amoxi cilli n-cla vulan ic acid Ampic illin -sulb actam * Antis taphy lococ cinthya cephe ms; such as: Cefac monty Cefur oxime * Antis taphy lococ cinthya carba penem s; such as: Imipe nem Merop enem Not Available [facility] ([facility]) [address], [place], [address], 10/12/2017 17:11:22 10/09/19 18 10/12/2017 cultu re, wound antimicrobia l susceptibili ty Commen t S = Susce ptibl e; I = Inter media te; R = Resis tant P = Posit monica; N = Negat monica MICS are expre ssed in micro grams per mL Antib iotic RSLT# 1 RSLT# 2 RSLT# 3 RSLT# 4 Cipro floxa everette S Clind amyci n S Eryth romyc in R Genta micin S Levof loxac in S Linez olid S Moxif loxac in S Oxaci llin S Penic illin R Quinu prist in/Da lfopr istin S Rifam pin S Tetra cycli ne S Trime thopr im/Salas lfa S Vanco mycin S Not Available [facility] ([facility]) [address], [place], [address], 10/12/2017 17:11:22 12/07/19 19 12/09/2018 cultu re, absce ss aerobic culture Final report Not Available [facility] ([facility]) [address] [place], [address], 12/12/2018 15:08:45 12/07/1912/09/2018 cultu re, absce ss result 1 Commen t No growt h in 36 - 48 hours . Not Available [facility] ([facility]) [address], [place], [address], 12/12/2018 15:08:45 12/07/1912/12/2018 cultu re, absce ss anaerobic culture Final report Not Available [facility] ([facility]) [address], [place], [address], 12/12/2018 15:08:45 12/07/1912/12/2018 cultu re, absce ss result 1 Commen t No anaer obic growt h in 72 hours . Not Available [facility] ([facility]) [address], [place], [address], 12/12/2018 15:08:45 12/13/1912/13/2018 TSH + free T4, serum TSH 3.890 uIU/m L 0.450- 4.500 Not Available [facility] ([facility]) [address], [place], [address], 12/13/2018 08:20:23 12/13/1912/13/2018 TSH + free T4, serum T4,free(dire ct) 1.10 NG/dL 0.82-1 .77 Not Available [facility] ([facility]) [address] [place], [address], 12/13/2018 08:20:23 12/13/1912/13/2018 CMP, serum or plasm a glucose 101 mg/dL 65-99 above high normal Not Available [facility] ([facility]) [address] [place], [address], 12/13/2018 08:20:24 12/13/1912/13/2018 CMP, serum or plasm a BUN 11 mg/dL 8-27 Not Available [facility] ([facility]) [address] [place], [address], 12/13/2018 08:20:24 12/13/1912/13/2018 CMP, serum or plasm a creatinine 0.71 mg/dL 0.57-1 .00 Not Available [facility] ([facility]) [address] [place], [address], 12/13/2018 08:20:24 12/13/1912/13/2018 CMP, serum or plasm a eGFR if nonafricn AM 90 mL/mi n/1.7 3 >59 Not Available [facility] ([facility]) [address] [place], [address], 12/13/2018 08:20:24 12/13/1912/13/2018 CMP, serum or plasm a eGFR if africn AM 104 mL/mi n/1.7 3 >59 Not Available [facility] ([facility]) [address] [place], [address], 12/13/2018 08:20:24 12/13/1912/13/2018 CMP, serum or plasm a BUN/creatini ne ratio 15 12-28 Not Available [facility]) [address] [place], [address], 12/13/2018 08:20:24 12/13/1912/13/2018 CMP, serum or plasm a sodium 139 mmol/ L 134-14 4 Not Available [facility] ([facility]) [address] [place], [address], 12/13/2018 08:20:24 12/13/1912/13/2018 CMP, serum or plasm a potassium 4.6 mmol/ L 3.5-5. 2 Not Available [facility] ([facility]) [address] [place], [address], 12/13/2018 08:20:24 12/13/19 19 12/13/2018 CMP, serum or plasm a chloride 100 mmol/ L 96-106 Not Available [facility] ([facility]) [address] [place], [address], 12/13/2018 08:20:24 12/13/19 19 12/13/2018 CMP, serum or plasm a carbon dioxide, total 22 mmol/ L 20-29 Not Available [facility] ([facility]) [address] [place], [address], 12/13/2018 08:20:24 12/13/1912/13/2018 CMP, serum or plasm a calcium 8.9 mg/dL 8.7-10 .3 Not Available [facility] ([facility]) [address] [place], [address], 12/13/2018 08:20:24 12/13/1912/13/2018 CMP, serum or plasm a protein, total 7.2 g/dL 6.0-8. 5 Not Available [facility] ([facility]) [address] [place], [address], 12/13/2018 08:20:24 12/13/1912/13/2018 CMP, serum or plasm a albumin 4.5 g/dL 3.6-4. 8 Not Available [facility] ([facility]) [address] [place], [address], 12/13/2018 08:20:24 12/13/1912/13/2018 CMP, serum or plasm a globulin, total 2.7 g/dL 1.5-4. 5 Not Available [facility] ([facility]) [address] [place], [address], 12/13/2018 08:20:24 12/13/19 19 12/13/2018 CMP, serum or plasm a A/G ratio 1.7 1.2-2. 2 Not Available [facility] ([facility]) [address], [place], [address], 12/13/2018 08:20:24 12/13/1912/13/2018 CMP, serum or plasm a bilirubin, total 0.4 mg/dL 0.0-1. 2 Not Available [facility] ([facility]) [address], [place], [address], 12/13/2018 08:20:24 12/13/1912/13/2018 CMP, serum or plasm a alkaline phosphatase 76 IU/L 39-117 Not Available [facility]) [address] [place], [address], 12/13/2018 08:20:24 12/13/1912/13/2018 CMP, serum or plasm a AST (SGOT) 25 IU/L 0-40 Not Available [facility] ([facility]) [address], [place], [address], 12/13/2018 08:20:24 12/13/1912/13/2018 CMP, serum or plasm a ALT (SGPT) 26 IU/L 0-32 Not Available [facility] ([facility]) [address], [place], [address], 12/13/2018 08:20:24 12/13/1912/13/2018 lipid panel , serum cholesterol, total 165 mg/dL 100-19 9 Not Available [facility] ([facility]) [address] [place], [address], 12/13/2018 08:20:25 12/13/1912/13/2018 lipid panel , serum triglyceride s 124 mg/dL 0-149 Not Available [facility]) [address] [place], [address], 12/13/2018 08:20:25 12/13/1912/13/2018 lipid panel , serum HDL cholesterol 81 mg/dL >39 Not Available [facility]) [address] [place], [address], 12/13/2018 08:20:25 12/13/19 19 12/13/2018 lipid panel , serum VLDL cholesterol cinthya 25 mg/dL 5-40 Not Available [facility]) [address] [place], [address], 12/13/2018 08:20:25 12/13/1912/13/2018 lipid panel , serum LDL cholesterol calc 59 mg/dL 0-99 Not Available [facility] ([facility]) [address] [place], [address], 12/13/2018 08:20:25 12/13/19 19 12/13/2018 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 2 LDL/H DL Ratio Men Women 1/2 Avg.R isk 1.0 1.5 Avg.R isk 3.6 3.2 2X Avg.R isk 6.2 5.0 3X Avg.R isk 8.0 6.1 Not Available [facility] ([facility]) [address], [place], [address], 12/13/2018 08:20:25 12/13/1912/13/2018 HbA1c (hemo globi n A1c), blood hemoglobin A1C 5.8 % 4.8-5. 6 above high normal Predi abete s: 5.7 - 6.4 Diabe carrillo: >6.4 Glyce norm contr ol for adult s with diabe carrillo: <7.0 Not Available [facility] ([facility]) [address], [place], [address], 12/13/2018 08:20:25 12/13/19 19 12/13/2018 vitam in D, 25-hy droxy , total , serum vitamin D, 25-hydroxy 31.6 NG/mL 30.0-1 00.0 Vitam in D defic iency has been defin ed by the Insti tute of Medic ine and an Endoc rine Socie ty pract ice guide line as a level of serum 25-OH vitam in D less than 20 ng/mL (1,2) . The Endoc rine Socie ty went on to [facility] er defin e vitam in D insuf ficie ncy as a level betwe en 21 and 29 ng/mL (2). 1. IOM (Inst itute of Medic ine). 2009. Nickolas ry refer ence intak es for calci um and D. Zaire wilder [place]: The [facility] . 2. Alex daley [place], Shanta strauss [place], Jen off-F swathi i FARNSWORTH, et al. Evalu ation , treat ment, and preve ntion of vitam in D defic iency : an Endoc rine Socie ty clini cinthya pract ice guide line. JCEM. 2010; 96(7) :1911 -30. Not Available [facility] ([facility]) [address], [place], [address], 12/13/2018 08:20:26 12/13/19 19 12/13/2018 CK (crea dung kinas e), total , serum creatine kinase,total 94 U/L 24-173 Not Available [facility]) [address], [place], [address], 12/13/2018 08:20:26 06/03/19 18 bone densi ty No observ ation record ed. [email or web address] Not Available 05/24 15:45:53 11/16/19 18 XR, ankle , 3 or more view No observ ation record ed. Not Available 11/22 17:43:15 12/17/19 18 12/16/2017 US, doppl er, venou s No observ ation record ed. [email or web address] [facility] (Imaging) [address], [place], [address], 01/09/2018 16:36:04 02/02/20 19 02/01/2019 MAMMO , scree adrian, digit al, bilat eral No observ ation record ed. [facility] [address], [place], [address], 03/06/2019 09:08:12 12/05/19 20 11/28/2019 XR, chest , 2 view No observ ation record ed. Not Available 11/23 19:00:56 12/20/19 20 12/08/2019 trans -thor acic echoc ardio gram (TTE) (PROC ) No observ ation record ed. [email or web address] [facility] [address], [place], [address], 12/23/2019 12:07:02 12/28/19 20 12/28/2019 imagi ng/di agnos tic resul t No observ ation record ed. [email or web address] [facility] [address], [place], [address], 01/05/2020 14:51:54 10/08/19 21 10/07/2020 US, liver No observ ation record ed. [address], [address], 11/20/2020 12:03:26 Result Notes None recorded. 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 14:26:[facility] Acute urinary tract infection 284703241 Active Not Available [facility] 14:26:35 Shoulder tendiniti s Active Not Available [facility] 14:26:35 Colitis 30545112 Active Not Available [facility] 14:26:34 Eczema 31634884 Active [facility] Available [facility] 14:26:35 Candidias is of skin 68779368 Active Not Available [facility] 14:26:35 Obese 613901805 Active 2016 Not Available [facility] 14:26:35 Dysuria 98380069 Active 2016 Not Available [facility] 1 14:26:34 Recurrent urinary tract infection 048370175 Active 2017 Not Available [facility] 14:26:35 Osteopeni a 470291701 Active 2017 Not Available [facility] 1 14:26:35 Pain of hip region 79398283 Active 2017 Not Available [facility] 1 14:26:35 Fracture of fibula 16515845 Active 2017 non-displ aced diametaph yseal fracture Not Available [facility] 1 14:26:35 Celluliti s of groin 35133853 Active 2018 Not Available [facility] 14:26:35 Celluliti s of right axilla 19497699411 696090 Active 2018 Not Available [facility] 14:26:35 Gastroeso phageal reflux disease 124336791 Active 2018 Not Available [facility] 14:26:35 Urticaria 120612603 Active 2018 Not Available [facility] 14:26:35 Vulvovagi nitis 48439578 Active 2018 Not Available [facility] 14:26:35 Screening for malignant neoplasm of breast Active 2018 Not Available [facility] 14:26:35 Administr ation of influenza vaccine Active 2018 Not Available [facility] 14:26:35 Allergic rhinitis 78252785 Active 2019 Not Available [facility] 14:26:34 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 Procedures Surgical History Date Name Laterality Status Provider Name and Address Organization Details Recorded Time 6 Most Recent Mammogram completed Valery Douglas [facility] 05/27/2015 17:08:03 4 Date of Last Pap Smear completed Valery Douglas MA [facility] 05/27/2015 17:03:27 9 Caesarean Section completed Tiffanie Feliz MA [facility] 01/18/2017 16:41:52 Tubal Ligation completed Tiffanie Feliz MA [facility] 01/18/2017 16:42:16 Imaging Results None recorded. Procedure Notes None recorded. Medical Equipment None Reported. Allergies Allergen ID Allergen Name Allergen Category Reaction Reaction Severity Criticality Documentation Date Start Date Code Code System Note Provider Name and Address Organization Details Recorded Time codeine medicatio n Not available Not available Not available 04/05/2014 2670 RxNorm CRISTIANO Marsh [facility] 5 10:18:00 [address]54 acetamino phen / hydrocodo ne medicatio n Not available Not available Not available 04/05/2014 74496 2 RxNorm CRISTIANO Marsh [facility] 5 10:18:00 41433 Flagyl medicatio n vomiting moderate Not available 03/29/20152015 6 RxNorm TOOK 6 DAYS OF MED : ONLY 2 TABS LEFT Cory Mathis PA-C Attn: Samantha boucher,[address] [facility], [place], [address], [facility] 6 10:07:35 Medications Name Sig Start Date Stop Date Status Note LastModified by Organization Details LastModified Time multivitami n tablet Take 1 tablet every day by oral route. 2016 active Not Available Not Available Not Avai lable fluoxetine 40 mg capsule TAKE 1 CAPSULE BY MOUTH ONCE DAILY IN THE MORNING active Not Available Not Available No t Available cyclobenzap rine 10 mg tablet Take 1 tablet as needed by oral route at bedtime for 30 days. active Not Available Not Available No t Available amoxicillin 500 mg capsule 12/29 completed Not Available Not Available Not Available atorvastati n 40 mg tablet TAKE ONE TABLET BY MOUTH EVERY DAY 01/20 completed Not Available Not Available Not Available atorvastati n 20 mg tablet Take 1 tablet every day by oral route in the morning for 30 days. 01/20 completed Not Available Not Available Not Available ibuprofen 800 mg tablet TAKE 1 TABLET BY MOUTH THREE TIMES DAILY 2020 active Not Available Not Available Not Avai lable fluconazole 150 mg tablet Take 1 tablet every 72 hours by oral route as directed for 9 days. active Not Available Not Available No t Available phenazopyri dine 200 mg tablet Take 1 tablet 3 times a day by oral route for 2 days. 01/20 completed Not Available Not Available Not Available ondansetron HCl 4 mg tablet 01/18 completed Not Available Not Available Not Available alendronate 70 mg tablet Take 1 tablet every week by oral route in the morning for 30 days. active Not Available Not Available No t Available sertraline 100 mg tablet Take 1 tablet by mouth once daily 2019 active Not Available Not Available Not Avai lable metronidazo le 500 mg tablet Take 1 tablet twice a day by oral route for 7 days. 01/20 completed Not Available Not Available Not Available ciprofloxac in 500 mg tablet Take 1 tablet every 12 hours by oral route for 10 days. 06/11 completed Not Available Not Available Not Available sulfamethox azole 800 mg-trimetho prim 160 mg tablet Take 1 tablet twice a day by oral route for 10 days. active Not Available Not Available No t Available tramadol 50 mg tablet active Not Available Not Available No t Available amoxicillin 500 mg tablet Take 2 tablets twice a day by oral route for 10 days. 12/29 completed Not Available Not Available Not Available meloxicam 7.5 mg tablet 01/18 completed Not Available Not Available Not Available dicyclomine 20 mg tablet 01/18 completed Not Available Not Available Not Available cephalexin 500 mg capsule 01/18 completed Not Available Not Available Not Available erythromyci n 5 mg/gram (0.5 %) eye ointment 01/20 completed Not Available Not Available Not Available nortriptyli ne 10 mg capsule Take 2 capsules as needed by oral route at bedtime for 30 days. 01/18 completed Not Available Not Available Not Available fluoxetine 20 mg tablet Take 1 tablet every day by oral route in the morning for 30 days. 01/20 completed Not Available Not Available Not Available triamcinolo ne acetonide 0.1 % topical ointment APPLY A THIN LAYER TO THE AFFECTED AREA(S) BY TOPICAL ROUTE 2 TIMES PER DAY active Not Available Not Available No t Available nystatin 100,000 unit/gram topical cream APPLY TO THE AFFECTED AREA(S) BY TOPICAL ROUTE 2 TIMES PER DAY 01/18 completed Not Available Not Available Not Available ranitidine 150 mg tablet Take 1 tablet twice a day by oral route before meals for 30 days. 2016 active Not Available Not Available Not Avai lable promethazin e 25 mg tablet 01/18 completed Not Available Not Available Not Available omeprazole 20 mg capsule,del ayed release TAKE 1 CAPSULE BY MOUTH ONCE DAILY BEFORE MEAL(S) 2020 active Not Available Not Available Not Avai lable betamethaso ne dipropionat e 0.05 % topical ointment APPLY A THIN LAYER TO THE AFFECTED AREA(S) BY TOPICAL ROUTE twice DAILY to right thigh 01/18 completed Not Available Not Available Not Available fluoxetine 20 mg capsule TAKE ONE CAPSULE BY MOUTH IN THE MORNING active Not Available Not Available No t Available fluticasone propionate 50 mcg/actuati on nasal spray,suspe nsion [place] 1 spray twice a day by intranasa l route for 30 days. 2019 active Not Available Not Available Not Avai lable amoxicillin 875 mg-potassiu m clavulanate 125 mg tablet Take 1 tablet every 12 hours by oral route as directed for 10 days. active Not Available Not Available No t Available rosuvastati n 10 mg tablet TAKE 1 TABLET BY MOUTH EVERY OTHER DAY IN THE MORNING active Not Available Not Available No t Available nitrofurant oin monohydrate /macrocryst als 100 mg capsule Take 1 capsule every 12 hours by oral route for 10 days. 01/18 completed Not Available Not Available Not Available fenofibrate 160 mg tablet Take 1 tablet every day by oral route in the morning for 30 days. 01/20 completed Not Available Not Available Not Available calcium 500 mg (as carbonate)- vitamin D3 10 mcg (400 unit) tablet Take 1 tablet twice a day by oral route with meals for 30 days. 2017 active Not Available Not Available Not Avai lable Calcium with Vitamin D 600 mg-10 mcg (400 unit) tablet Take 1 tablet twice a day by oral route. 2016 active Not Available Not Available Not Avai lable Linzess 145 mcg capsule active Not Available Not Available Not Available Fluzone Quad [id number] 60 mcg (15 mcg x 4)/0.5 mL IM suspension 01/20 completed Not Available Not Available Not Available Fluarix Quad [id number] (PF) 60 mcg (15 mcg x 4)/0.5 mL IM syringe 01/18 completed Not Available Not Available Not Available Fluzone Quad (PF) 60 mcg(15 mcgx4)/0.5 mL intramuscul ar syringe active Not Available Not Available N ot Available Vitals Date Recorded Body height Body mass index (BMI) Body weight Oxygen saturation Oxygen saturation in Arterial blood by Pulse oximetry Heart rate Body temperature Systolic And Diastolic Provider Name and Address Organization Details Last Updated DateTime 8 154.94 cm 41.9 kg/m2 366770. 1 g 98 % 98 % 81 /min 98.9 [degF] 124/76 mm[Hg] Tiffanie Fontaine [place] - [facility] 8 14:07:19 Date Recorded Body height Body mass index (BMI) Body weight Oxygen saturation Oxygen saturation in Arterial blood by Pulse oximetry Heart rate Body temperature Systolic And Diastolic Provider Name and Address Organization Details Last Updated DateTime 8 154.94 cm 42.4 kg/m2 810833. 09 g 97 % 97 % 98 /min 98 [degF] 130/80 mm[Hg] Tiffanie Fontaine MA [facility] 8 14:17:17 Date Recorded Body weight Oxygen saturation Oxygen saturation in Arterial blood by Pulse oximetry Heart rate Body temperature Systolic And Diastolic Provider Name and Address Organization Details Last Updated DateTime 9 692844. 9 g 98 % 98 % 102 /min 98.6 [degF] 136/86 mm[Hg] Jessica Guidry MA [place] - [facility] 9 16:56:36 Date Recorded Body weight Oxygen saturation Oxygen saturation in Arterial blood by Pulse oximetry Heart rate Body temperature Systolic And Diastolic Provider Name and Address Organization Details Last Updated DateTime 9 592167. 05 g 97 % 97 % 86 /min 98.2 [degF] 124/80 mm[Hg] Jessica Guidry MA [facility] 9 14:38:10 Social History Question Answer Notes LastModified by Organizat ion Details LastModified Time Tobacco Smoking Status Former Smoker Not Available [email or web address] 12/26/2019 03:39:32 Do You Have An Advance Directive? No [id number] Information not available 12/26/2019 Are You Blind Or Do You Have Difficulty Seeing? No [id number] Information not available 12/26/2019 Is Blood Transfusion Acceptable In An Emergency? Yes [id number] Information not available 12/26/2019 What Is Your Level Of Caffeine Consumption? Moderate [id number] Information not available 12/26/2019 How Much Tobacco Do You Chew? None [id number] Information not available 12/26/2019 Are You Deaf Or Do You Have Serious Difficulty Hearing? No [id number] Information not available 12/26/2019 What Type Of Diet Are You Following? VEGETARIAN [id number] Information not available 12/26/2019 Which Illicit Or Recreational Drugs Have You Used? N/a [id number] Information not available 12/26/2019 Education 12 Information no t available 04/05/2014 Are There Any Guns Present In Your Home? No [id number] Information not available 12/26/2019 Hard Of Hearing Or Deaf In One Or Both Ears? No Information not available 04/05/2014 Legally Blind In One Or Both Eyes? No Information no t available 04/05/2014 Live Alone Or With Others? Alone [email or web address] Information not available 05/27/2015 Marital Status Informatio n not available 04/05/2014 What Was The Date Of Your Most Recent Tobacco Screening? 09/20/2019 [id number] Information not available 12/26/2019 How Many Children Do You Have? 1 [id number] Information not available 12/26/2019 Performs Monthly Self-breast Exam? No Information no t available 04/05/2014 What Is Your Relationship Status? [id number] Information not available 12/26/2019 Seat Belts Used Routinely Yes Information not available 04/05/2014 Are You Sexually Active? No [id number] Information not available 12/26/2019 Smoke Alarm In Home Yes Information not available 04/05/2014 At What Age Did You Start Smoking Tobacco? 14 [id number] Information not available 12/26/2019 How Much Tobacco Do You Smoke? No [id number] Information not available 12/26/2019 General Stress Level High Information not available 04/05/2014 Do You Use Sunscreen Routinely? Yes [id number] Information not available 12/26/2019 On What Date Was Tobacco Cessation Counseling Provided? 09/20/2019 [id number] Information not available 12/26/2019 How Many Years Have You Smoked Tobacco? 30 [id number] Information not available 12/26/2019 Do You Have Difficulty Walking Or Climbing Stairs? No [id number] Information not available 12/26/2019 Sex: Unknown Functional Status Question Answer Note LastModified by Organization D etails LastModified Time What is your level of alcohol consumption? None [id number] Information not available 12/26/2019 Are you currently employed? No [id number] Information not available 12/26/2019 Do you have difficulty doing errands alone? No [id number] Information not available 12/26/2019 What is your occupation? retired [id number] Information not available 12/26/2019 Do you have difficulty dressing or bathing? No [id number] Information not available 12/26/2019 What is your exercise level? None [id number] Information not available 12/26/2019 Mental Status Question Answer Note LastModified by Organization D etails LastModified Time Do you have difficulty concentrating, remembering or making decisions? No [id number] Information no t available 12/26/2019 Family History Relationship Description Onset Age of this Age Resolved Age Notes LastModified by Organization Details LastModified Time Mother Harmful pattern of use of alcohol [email or web address] Not available 05/26 17:23:09 Mother Depressive disorder [email or web address] Not available 05/26 17:23:09 Mother Dementia [email or web address] Not availab le 05/27/2015 17:23:09 Father Heart disease [email or web address] Not available 05/26 17:23:09 Medical History Condition Response Other N High Blood Pressure N Depression N Blood Clots N Headaches/Migraines N Anxiety Disorder Y Muscle, Joint, or Bone Problems N Polyps N Infertility N Acid Reflux (GERD) N Cancer N Kidney or Bladder Problems N Acne N Eating Disorder N Asthma N Allergies Y Hepatitis N Breast Cancer N Lung Disease N Breast Problem N Anesthesia Complications Y Endometriosis N High Cholesterol N Liver Disease N Thyroid Problems N GI Problems Y Anemia N Diabetes N Ovarian Cancer N Blood Transfusions N Seizures/Epilepsy N Abuse/Domestic Violence N Heart Disease N Pre-Eclampsia N Osteoporosis N Gynecological History Statement/Question Response Abnormal Pap N On BCP's at Conception? N STIs/STDs N HPV Vaccine N Most Recent Mammogram 06/16/2015 Age at Menarche 11 Current Control Method Tubal Ligat ion Age at First Child 21 If Post Menopausal, Age at Menopause 48 Sexually Active? N Menses Monthly N Date of Last Pap Smear 04/17/2013 Sexual Problems? N Desired Control Method Sterilizati on Obstetrics History GPAL:G 1 P 1 0 0 1 Type Value Full Term 1 Living 1 Total 1 Immunizations Vaccine Type Date Status Note Provider Nam e and Address Organization Details Recorded Time COVID-19, mRNA, LNP-S, PF, 100 mcg/0.5mL dose or 50 mcg/0.25mL dose 1 completed Not Available [facility] 12/31/2020 14:26:35 COVID-19, mRNA, LNP-S, PF, 100 mcg/0.5mL dose or 50 mcg/0.25mL dose 1 completed Not Available [facility] 12/31/2020 14:26:35 Influenza, split virus, quadrivalent, preservative 9 completed Not Available [facility] 03/11/2019 02:40:20 Tdap 5 completed Not Available [facility] 03/11/2019 02:43:08 Influenza, split virus, quadrivalent, preservative 5 completed Not Available [facility] 03/11/2019 02:32:09 Past Encounters Encounter ID Performer Location Encounter Start Date Encounter Closed Date Diagnosis/Indication Diagnosis SNOMED-CT Code Diagnosis ICD10 Code Diagnosis Note [id number] LEILANI Shipman (Adult Med) [address] [place] [address] [id number] 0 04/05/2014 09:51:59 04/05/2014 10:46:19 Anxiety 58838072 Depressive disorder 69718063 Dyslipidemia 603956981 Insomnia 061624591 Psoriasis 1544834 Palpitations 79155070 [id number] LEILANI Shipman (Adult Med) [address] [place] [address] [id number] 06/07/2014 11:39:14 06/07/2014 12:26:10 Dyslipidemia 556365040 Disorder of vitamin D 335707246 Bacterial vaginosis 128932323 [id number] MD Kelsey Montaño (Adult Med) [address] [place] [address] [id number] 0 10/30/2014 16:08:20 10/30/2014 17:19:14 Acute urinary tract infection 750460345 Anxiety 64482877 Depressive disorder 38533897 Disorder of vitamin D 561463372 Dyslipidemia 652309246 Insomnia 317257928 Palpitations 01222399 Psoriasis 9647086 Active or passive immunization 052140375 [id number] LEIALNI Shipman (Adult Med) [address] [place] [address] [id number] 0 11/30/2014 11:52:22 11/30/2014 16:38:37 Administration of influenza vaccine 02789970 Z23 [id number] LEILANI Sihpman (Adult Med) [address] [place] [address] [id number] 0 01/04/2015 14:09:42 01/07/2015 12:34:15 Anxiety 92970076 F41.9 Depressive disorder 3548 9007 F32.9 Disorder of vitamin D 38 7352689 E55.9 Dyslipidemia 935900945 E 78.5 Insomnia 009816799 G47.0 0 Palpitations 81623994 R0 0.2 Psoriasis 0625718 L40.9 Shoulder tendinitis 2028 96409 M75.81 [id number] LEILANI Shipman (Adult Med) [address] [place] [address] [id number] 0 03/29/2015 09:17:47 03/29/2015 10:14:48 Colitis 02598567 K52.9 Anxiety 41151855 F41.9 Disorder of vitamin D 38 0871930 E55.9 Dyslipidemia 936496058 E 78.5 Insomnia 216952028 G47.0 0 Psoriasis 6611587 L40.9 Eczema 07457000 L30.9 Screening for malignant neoplasm of colon 536286762 Z12.11 [id number] MD Kelsey Ku (ADMINISTRATIVE ACCOUNTANT) [address] [place] [address] [id number] 0 05/27/2015 15:25:36 05/27/2015 18:56:52 Gynecologic examination 68755690 Z01.419 Screening mammography 24 993131 Z12.31 Candidiasis of skin 4988 3006 B37.2 [id number] MD Kelsey Montaño (Adult Med) [address] [place] [address] [id number] 0 01/21/2016 14:55:54 01/21/2016 18:27:47 Insomnia 903672400 G47.00 Dyslipidemia 029678287 E 78.5 Disorder of vitamin D 38 6865312 E55.9 Psoriasis 0439185 L40.9 Palpitations 79603324 R0 0.2 Depressive disorder 3548 9007 F32.9 Eczema 73692454 L30.9 [id number] LEILANI Shipman (Adult Med) [address] [place] [address] [id number] 02/20/2016 14:11:17 02/20/2016 15:08:38 Dyslipidemia 902984090 E78.5 Psoriasis 8560432 L40.9 Palpitations 57118426 R0 0.2 Anxiety 71585407 F41.9 Eczema 75766974 L30.9 Disorder of vitamin D 38 8399968 E55.9 Acute urin dinh tract infection 520670222 N39.0 [id number] MD Kelsey Ku (ADMINISTRATIVE ACCOUNTANT) [address] [place] [address] [id number] 0 01/18/2017 15:05:13 01/18/2017 17:25:47 Gynecologic examination 95494751 Z01.419 Z11.51 Screening mammography 24 846385 Z12.31 [id number] MD Kelsey Montaño (Adult Med) [address] [place] [address] [id number] 0 01/25/2017 13:49:03 01/25/2017 16:01:11 Depressive disorder 33753473 F32.9 Colitis 54688579 K52.9 Dyslipidemia 001106243 E 78.5 Disorder of vitamin D 38 9407516 E55.9 Obese 439554634 E66.9 Dysuria 22901420 R30.0 Anxiety 61339755 F41.9 [id number] MD Kelsey Montaño (Adult Med) [address] [place] [address] [id number] 0 02/26/2017 16:06:49 03/01/2017 09:30:48 Dyslipidemia 101487884 E78.5 Dysuria 91368541 R30.0 Depressive disorder 3548 9007 F32.9 Disorder of vitamin D 38 2922032 E55.9 Eczema 64196033 L30.9 Anxiety 61124873 F41.9 [id number] MD Kelsey Montaño (Adult Med) [address] [place] [address] [id number] 0 06/11/2017 13:52:02 06/11/2017 15:31:31 Osteopenia 241957080 M85.80 bilateral femoral neck Obese 355432898 E66.9 Depressive disorder 3548 9007 F32.9 Dyslipidemia 951593863 E 78.5 Disorder of vitamin D 38 1526361 E55.9 Pain of hip region 89256 002 M25.551 Shoulder tendinitis 2027 64372 M75.81 [id number] [facility] (Adult Med) [address] [place] [address] [id number] 0 10/08/2017 13:53:34 10/08/2017 14:42:16 Folliculitis 79294561 L73.9 send culturesta rt bactrim x 10 daysuse tylenol/ib uprofen prn for paindiscus sed reasons to report to ED including fever, vomiting, or increase in painf/u if not improving in 3 days [id number] MD Kelsey Montaño (Adult Med) [address] [place] [address] [id number] 0 12/06/2018 16:40:16 12/06/2018 17:31:49 Cellulitis of right axilla 6025825379 5220043 L03.111 Shoulder tendinitis 2027 96117 M75.81 Dyslipidemia 756777313 E 78.5 Gastroesop hageal reflux disease 618943274 K21.9 Depressive disorder 3548 9007 F32.9 Urticaria 882229296 L50. 9 Obese 763596847 E66.9 Osteopenia 948190162 M85 .80 bilateral femoral neck [id number] MD Kelsey Montaño (Adult Med) [address] [place] [address] 80580-122 0 12/29/2018 14:23:21 12/30/2018 10:06:53 Screening for malignant neoplasm of breast 962788695 Z12.39 Gastroesop hageal reflux disease 591392965 K21.9 Osteopenia 763845266 M85 .80 bilateral femoral neck Dyslipidemia 709018101 E 78.5 Administra tion of influenza vaccine 76895430 Z23 Obese 382021641 E66.9 Insomnia 371699039 G47.0 0 Disorder of vitamin D 38 8543606 E55.9 [id number] MD Kelsey Montaño (Adult Med) [address] [place] [address] [id number] 0 09/20/2019 09:49:04 09/20/2019 11:30:48 Allergic rhinitis 26543155 J30.9 Depressive disorder 3548 9007 F32.9 Disorder of vitamin D 38 0493537 E55.9 Gastroesop hageal reflux disease 654942937 K21.9 Dyslipidemia 107756182 E 78.5 Insomnia 280641958 G47.0 0 Osteopenia 781456728 M85 .80 bilateral femoral neck Psoriasis 1587357 L40.9 Health Concerns Section Related Observation LastModified by Organization Detai ls LastModified Time None Recorded Concern Status LastModified by Organization Details LastModified Time None Recorded Advance Directives Directive N: Payers Insurance Date Sequence Insurance Name Policy Number Policy Quick Covered Member ID Quick Member ID Guarantor Name 10/10/2017 1 [facility] - DOS PRIOR TO 2020 (MEDICAID REPLACEMENT - HMO) Ruma Christiansen [id number] Ruma Christiansen 10/10/2017 1 [facility] [id number] Ruma Christiansen [id number] Ruma Christiansen 12/05/2019 1 [place] [id number] Ruma Christiansen [id number] Ruma Christiansen Notes Date Note Type Note Provider Name and Address Organization Details Recorded Time 10/08/2017 text/html pt here for vaginal boil noticed 3 days ago, put priid on it, and states it popped the next day draining thick yellow drainage reports fever, temp at home 101.5 yesterday, 99 this am denies shaving area no nausea, vomiting, diarrhea otherwise feels well [facility] Attn: Accounting,[address] [facility], [place], [address], [facility] 10/09/2017 21:50:32 12/06/2018 text/html did get some pus out of the lesion , very tender Cory Mathis PA-C Attn: Accounting,[address] [facility], [place], [address], [facility] 12/08/2018 21:25:21 12/29/2018 text/html no changes , no side effects Cory Mathis PA-C Attn: Accounting,[address] [facility], [place], [address], [place] [facility] 01/02/2019 18:09:34 09/20/2019 text/html no changes Cory Mathis PA-C Attn: Accounting,[address], [place], [address], [place] [facility] 09/20/2019 13:01:51 OBGyn Episode Ob Episode Information Episode Created Date Number of Fetuses Patient Bloodtype Patient rh Status Prepregnancy Weight lbs Domestic Partner Domestic Partner Phone Father Name Assisted Living Administrator Status 05/27/19 16 1 CLOSED Fetus Data First Name Last Name Admitted to NICU Weight (g) Sex Living Outcome Pediatric Complications Fetus ID Race Codes Race Delivery Type 3401.94 M Full Term [id number] Abiel Calculation Initial Abiel Date Initial Exam Date Initial Exam Provider Initial Ultrasound Date Last Menstrual Period Date Ultra Sound Weeks Gestation 0 Eighteen To Twenty Week Abiel Update Ultra Sound Date Fundal Height At Umbil Quickening Date Ultra Sound Latest Weeks Gestation Final Abiel Confirmed By Final Abiel Confirmed Date Final Abiel Date Ultra Sound Latest Days Gestation 0 0 Menstrual History Last Menstrual Date Menses Monthly On Bcp Conception Prior Menses Frequency Hcg Plus Date Menarche Onset Age Delivery Information Delivery Date Delivery Type Labor Anesthesia Weeks Gestation Incision Type Labor Labor Length Hrs Delivered By Post Complications Tubal Sterilization Discharge Date Comments 9 General 40 false Discharge Information Feeding Method Contraceptive Method Maternal HG B and HCT Levels
--- OUTSIDE RECORDS SUMMARY | 2024-09-12 21:07 | XMS_ITS | Continuity of Care Document ---
Author Organization [facility] Address [address] [place] [address] [place] [address] Phone Care Team Providers Care Hog Raiser Name Role Phone Unavailable Unavailable Unavailable Advance Directives Directive Yes / No Effective Date File Name No Information Encounters Encounter Description Practice Location Reason(s) For Visit Diagnoses Date Provider Providers Copied on Encounter [facility], [address], [place], [place], [id number], [place] tel:[phone] [facility] No Information 1200 0 No Information Family History Family Member Type Diagnosis Age At Onset No Information Payers Payer name Insurance type Covered green party ID Authoriza tion(s) No Information Social History Type Description Quantity Date Captured Comments Sex Female Smoking Status No Information Chief Complaint And Reason For Visit No Information Reason For Referral Reason For Referral No Information History Of Present Illness Encounter Date Complaint History Of Prese nt Illness No Information Functional Status Date Functional Assessmen t No Information Instructions Date Instruction Additional Infor mation No Information Assessments Type Assessment Date No Information Patient Care Teams Name Effective Dates (start - stop) Status Members No Information
--- OUTSIDE RECORDS SUMMARY | 2024-09-12 21:07 | XMS_ITS | Data Portability ---
Author Organization [place] [facility] [employer], Main Office Address [address] [place] [address] Care Team Providers Care Padder Name Role Phone IRMA HARRIS Primary Care Provider IRMA HARRIS Referring Provider JOEY BRIZUELA Boil Off Machine Operator Cloth Assessment Encounter Date Assessment Date Assessment LastModified by Organization Details LastModified Time 12/31/2022 12/31/2022 08/19/2022: Chol 201, TG 161 12/21/2022: A1C 5.4 Gluc 100, alb 4.5, TP WNL TG 164 Not available 12/31/2022 13:46:10 09/30/2023 09/30/2023 08/19/2022: Chol 201, TG 161 12/21/2022: A1C 5.4 Gluc 100, alb 4.5, TP WNL TG 164 09/13/2023: A1C 5.5 Urine micro alb 18.3 BUN 24 09/22/2023: TSH/FT4: WNL Not available 09/30/2023 14:14:44 10/11/2023 10/11/2023 08/19/2022: Chol 201, TG 161 12/21/2022: A1C 5.4 Gluc 100, alb 4.5, TP WNL TG 164 09/13/2023: A1C 5.5 Urine micro alb 18.3 BUN 24 09/22/2023: TSH/FT4: WNL Not available 10/10/2023 18:56:50 01/12/2024 01/12/2024 08/19/2022: Chol 201, TG 161 12/21/2022: A1C 5.4 Gluc 100, alb 4.5, TP WNL TG 164 09/13/2023: A1C 5.5 Urine micro alb 18.3 BUN 24 09/22/2023: TSH/FT4: WNL 01/06/2024: A1C 5.5 TG 194 08/19/2022: Chol 201, TG 161 12/21/2022: A1C 5.4 Gluc 100, alb 4.5, TP WNL TG 164 09/13/2023: A1C 5.5 Urine micro alb 18.3 BUN 24 09/22/2023: TSH/FT4: WNL 01/06/2024: A1C 5.5 TG 194 Not available 01/12/2024 15:19:26 07/12/2024 07/12/2024 08/19/2022: Chol 201, TG 161 12/21/2022: A1C 5.4 Gluc 100, alb 4.5, TP WNL TG 164 09/13/2023: A1C 5.5 Urine micro alb 18.3 BUN 24 09/22/2023: TSH/FT4: WNL 01/06/2024: A1C 5.5 TG 194 08/19/2022: Chol 201, TG 161 12/21/2022: A1C 5.4 Gluc 100, alb 4.5, TP WNL TG 164 09/13/2023: A1C 5.5 Urine micro alb 18.3 BUN 24 09/22/2023: TSH/FT4: WNL 01/06/2024: A1C 5.5 TG 194 07/07/2024: A1C 5.3 gluc 100, alb 4.8H, TP WNL Chol 216, TG 204 Not available 07/12/2024 14:06:36 Plan of Treatment Reminders Order Date Submit Date Provider Last Modified By Organization Details Last Modified Time Details Appointments New Patient 2024 10:20A M Hector Floyd MD Not available Not available Not available Follow Up 2024 01:00P Sneha james MD Not available Not available Not available Lab vitamin D, 25-hydrox y, total, serum 2024 025 [facility] (Lab), [address] [place], [address], 07/12/2024 16:40:35 glycohemo globin, total, blood 2024 025 [facility] (Lab), [address] [place], [address], 07/12/2024 16:40:35 microalbu min, urine 2024 025 [facility] (Lab), [address] [place], [address], 07/12/2024 16:40:35 lipid panel, serum 2024 025 [facility] (Lab), [address] [place], [address], 07/12/2024 16:40:35 CBC w/ auto diff 2024 025 [facility] (Lab), [address] [place], [address], 07/12/2024 16:40:35 CMP, serum or plasma 2024 025 [facility] (Lab), [address] [place], [address], 07/12/2024 16:40:35 TSH, serum or plasma 2024 025 [facility] (Lab), [address] [place], [address], 07/12/2024 16:40:35 glycohemo globin, total, blood 2023 024 [facility] (Lab), [address] [place], [address], 07/07/2024 17:59:37 microalbu min, urine 2023 024 [facility] (Lab), [address] [place], [address], 07/07/2024 13:30:54 lipid panel, serum 2023 024 [facility] (Lab), [address] [place], [address], 07/07/2024 13:38:11 CBC w/ auto diff 2023 024 [facility] (Lab), [address] [place], [address], 07/07/2024 13:30:45 CMP, serum or plasma 2023 024 [facility] (Lab), [address] [place], [address], 07/07/2024 13:38:21 TSH, serum or plasma 2023 024 [facility] (Lab), [address] [place], [address], 07/07/2024 14:21:10 vitamin D, 25-hydrox y, total, serum [address] (Lab), [address] [place], [address], 07/11/2024 08:39:24 glycohemo globin, total, blood 2023 024 [facility] (Lab), [address] [place], [address], 01/06/2024 11:44:35 microalbu min, urine 2023 024 [facility] (Lab), [address] [place], [address], 01/06/2024 14:17:26 lipid panel, serum 2023 024 [facility] (Lab), [address] [place], [address], 01/06/2024 11:32:34 CBC w/ auto diff 2023 024 [facility] (Lab), [address] [place], [address], 01/06/2024 10:41:54 CMP, serum or plasma 2023 024 [facility] (Lab), [address] [place], [address], 01/06/2024 11:32:41 TSH, serum or plasma 2023 024 [facility] (Lab), [address] [place], [address], 01/06/2024 11:56:42 vitamin D, 25-hydrox y, total, serum [address] (Lab), [address] [place], [address], 04/04/2024 08:17:47 glycohemo globin, total, blood [address] (Lab), [address] [place], [address], 12/27/2023 08:30:39 microalbu min, urine [address] (Lab), [address] [place], [address], 08/23/2023 09:00:50 lipid panel, serum [address] (Lab), [address] [place], [address], 08/31/2023 15:06:24 CBC w/ auto diff [address] (Lab), [address] [place], [address], 12/27/2023 08:30:39 CMP, serum or plasma [address] (Lab), [address] [place], [address], 08/31/2023 15:06:25 TSH, serum or plasma [address] (Lab), [address] [place], [address], 12/27/2023 08:30:39 vitamin D, 25-hydrox y, total, serum [address] (Lab), [address] [place], [address], 12/27/2023 08:30:39 Referral obstetric tyrese and gynecolog ist referral - Please call patient to schedule an appointme nt. Thank you. 2024 025 KATHIA Dave MD, [address] [facility] [address], [place], [address], 07/14/2024 12:20:32 podiatris t referral - Please call patient to schedule an appointme nt. Thank you. 2024 025 [email or web address] Jose A Schuster DPM, [address] [facility], [address], [place], [address], 07/14/2024 11:46:24 nephrolog ist referral 2023 024 [email or web address] Joey Brizuela MD, [address] [place] [address], [address], 01/17/2024 09:11:26 podiatris t referral - Please call patient to schedule. 2023 024 evin Schuster DPM, [address], [address], [place], [address], 04/20/2024 10:23:30 nephrolog ist referral 2023 024 [email or web address] Joey Brizuela MD, [address] [place], [address], 11/08/2023 14:01:25 podiatris t referral 2023 024 Alex REECEM, [address], [address], [place], [address], 04/04/2024 08:17:58 physical therapist referral 2023 024 [email or web address] [facility], [address] [place], [address], 04/04/2024 08:05:15 orthopedi c surgeon referral 2023 024 [email or web address] Srinivas Huynh MD, [address] [facility] [address], [place], [address], 04/04/2024 08:17:58 podiatris t referral 2022 023 [email or web address] Alex REECEM, [address], [address], [place], [address], 09/08/2023 16:50:11 orthopedi c surgeon referral 2022 023 [email or web address] Srinivas Huynh MD, [address] [facility] [address], [facility] [place], [address], 09/08/2023 16:50:11 Procedures None recorded. Surgeries None recorded. Imaging MAMMO, screening , digital, bilateral 2024 025 [facility], [address], [place] [address], [place], [address], 07/12/2024 14:35:25 [place], liver - Please call patient to schedule. [address] ([facility]), [address] [place], [address], 08/15/2024 17:14:23 [place], liver [address] ([facility]), [address] [place], [address], 01/13/2024 18:43:50 [place], liver [address] ([facility]), [address] [place], [address], 01/13/2024 18:42:54 [place], liver [email or web address] [place] [address] ([facility]), [address] [place], [address], 08/31/2023 10:18:38 DEXA, axial skeleton 2022 023 [facility] ([facility]), [address] [place], [address], 06/29/2023 09:05:31 Medication Orders rosuvasta tin 10 mg tablet 2024 025 [facility]/Pharmacy #[id number], [address], [place], [address], 07/12/2024 14:17:07 alendrona te 70 mg tablet 2023 024 [facility]/Pharmacy #[id number], [address], [place], [address], 10/11/2023 15:44:27 cephalexi n 250 mg capsule [email or web address]/Pharmacy #[id number], [address], [place], [address], 09/30/2023 14:05:22 Diflucan 150 mg tablet [email or web address]/Pharmacy #[id number], [address], [place], [address], 09/30/2023 14:05:28 Patient TargetsNo targets recorded. Patient Instructions Encounter Date Encounter Id Patient Instructions Last Modified By Organization Details Last Modified Time 12/31/2022 [id number] dementia rating scale-2* [email or web address] Not available 12/31/2022 14:47:03 alcohol misuse* [email or web address] 2 Not available 12/31/2022 14:47:03 depression screening* [email or web address] 2 Not available 12/31/2022 14:47:03 diabetic eye exam* [email or web address] Not availa ble 09/08/2023 16:50:00 multi-dimensiona l health assessment questionnaire* [email or web address] 2 Not available 12/31/2022 14:47:03 Personalized [facility] Plan and Screening Recommendations Advance Directives - Do you have one? No Not interested at this time Advance Directives - Do we have your advance directive on file in your health record? Primary Prevention/Interven tion (prevents or decreases the chance of common diseases from occurring) Smoking Risk: Non Smoker Alcohol Misuse Screening: Negative Weight: Overweight try to lose 10% of your body weight Physical activity: Need more exercise/physical activity Nutrition: Average Eat heart healthy diet Fall Risk (screened today): Intermediate Recommend regular use of cane or walker as needed Vaccines Pneumococcal: No further needed Influenza: Your next one in the fall of this year Chronic Disease Risks Stroke: Intermediate Risk Active diagnosis, Continue current treatment plan Heart Attack: Intermediate Risk Active diagnosis, Continue current treatment plan Clogging of the Arteries: Intermediate Risk Active diagnosis, Continue current treatment plan Diabetes: Intermediate Risk Drastically limit sugar and products made with any type of flour (bread, pasta, cereal, cookies, crackers, etc.) Secondary Prevention/Interven tion (detects treatable diseases before they may cause symptoms, disability, or ) Breast Cancer Screening with mammogram: scheduled 06/15 Cervical/Uterine/Ov natty Cancer Screening: No screening necessary Osteoporosis Screening: scheduled 06/15 Date Screening Last Performed: Colon Cancer Screening: Colonoscopy Recommended today, but you have declined Date Screening Last Performed: Eye Disease Screening: Your next exam in: goes every 2 yrs Dementia Risk: Low I have no recommendations Depression Screening: Negative Active diagnosis, Continue current treatment plan [email or web address] Not available 12/31/2022 14:51:51 09/30/2023 [id number] diabetic eye exam* ESTHER Not availa ble 12/04/2023 08:49:35 01/12/2024 [id number] dementia rating scale-2* [email or web address] Not available 01/12/2024 15:46:55 alcohol misuse* Not available 01/12/2024 15:47:08 depression screening* Not available 01/12/2024 15:47:19 Timed Up and Go test (TUG)* Not available 01/12/2024 15:47:41 multi-dimensiona l health assessment questionnaire* [email or web address] Not available 01/12/2024 15:45:39 advance directiv es: care instructions [email or web address] Not available 01/12/2024 19:35:24 advance care planning: care instructions [email or web address] Not available 01/12/2024 19:35:24 [place] Advance Directives [email or web address] Not available 01/12/2024 19:35:24 Personalized [facility] Plan and Screening Recommendations Advance Directives - Do you have one? No You have indicated that you are capable of preparing your advance care directive Advance Directives - Do we have your advance directive on file in your health record? Primary Prevention/Interven tion (prevents or decreases the chance of common diseases from occurring) Smoking Risk: Non Smoker Alcohol Misuse Screening: Negative Weight: Overweight try to lose 10% of your body weight Physical activity: Need more exercise/physical activity minimum of 10-20 minutes of activity that causes mild breathlessness/day Nutrition: Average Refer to attached handout Heart-Healthy Diet: After Your Visit Fall Risk (screened today): Low Refer to attached handout Preventing Falls: After your Visit Vaccines Pneumococcal: No further needed Influenza: Recommended today Chronic Disease Risks Stroke: Intermediate Risk Follow Heart Healthy Diet. Heart Attack: Intermediate Risk Follow Heart Healthy Diet. Clogging of the Arteries: Intermediate Risk Follow Heart Healthy Diet. Diabetes: Intermediate Risk I have no recommendations Secondary Prevention/Interven tion (detects treatable diseases before they may cause symptoms, disability, or ) Breast Cancer Screening with mammogram: Your next mammogram: 1year Cervical/Uterine/Ov natty Cancer Screening: Referral to cane burner Osteoporosis Screening: Your next DEXA in: 2 years Colon Cancer Screening: Colonoscopy Date Screening Last Performed: Declined Eye Disease Screening: Recommended today Dementia Risk: Low I have no recommendations Depression Screening: Negative Active diagnosis, Continue current treatment plan [email or web address] Not available 01/12/2024 15:53:05 Reason for Referral Marketing Technology Specialist Referral for Pred iabetes Referring Physician: Irma Harris Internal Medicine, Encounter Date: 12/31/2022 Orthopedic Surgeon Referral for Pain of right knee joint Referring Physician: Eloisa Dennison Medicine, Encounter Date: 12/31/2022 Marketing Technology Specialist Referral for Pred iabetes Referring Physician: Irma Harris Internal Medicine, Encounter Date: 09/30/2023 Orthopedic Surgeon Referral for Pain of right knee joint Referring Physician: Eloisa Dennison Medicine, Encounter Date: 09/30/2023 Physical Therapist Referral for Low back pain Referring Physician: Eloisa Dennison Medicine, Encounter Date: 09/30/2023 Boil Off Machine Operator Cloth Referral for Pr oteinuria Referring Physician: Eloisa Dennison, Encounter Date: 10/11/2023 Boil Off Machine Operator Cloth Referral for Pr oteinuria Referring Physician: Irma Harris Internal Medicine, Encounter Date: 01/12/2024 Marketing Technology Specialist Referral for Pred iabetes Please call patient to schedule. Referring Physician: Irma Harris Internal Medicine, Encounter Date: 01/12/2024 Marketing Technology Specialist Referral for Pred iabetes Please call patient to schedule an appointment. Thank you. Referring Physician: Irma Harris Internal Medicine, Encounter Date: 07/12/2024 Art Supervisor And Gynecologis t Referral for Well woman health examination Please call patient to schedule an appointment. Thank you. Referring Physician: Irma Harris Internal Medicine, Encounter Date: 07/12/2024 Results Created Date Observation Date Name Description Value Unit Range Abnormal Flag Note LastModifiedBy Organization Detail LastModifiedTime 12/22/19 23 12/21/2022 CBC/C OMPLE TE BLD COUNT W/DIF F white blood cells 5.7 x10'3 /uL 4.2-10 .8 Not Available [facility] (Lab) [address] [place], [address], 12/21/2022 12:27:16 12/22/19 23 12/21/2022 CBC/C OMPLE TE BLD COUNT W/DIF F red blood cells 4.38 x10'6 /uL 3.80-5 .20 Not Available [facility] (Lab) [address] [place], [address], 12/21/2022 12:27:16 12/22/19 23 12/21/2022 CBC/C OMPLE TE BLD COUNT W/DIF F hemoglobin 13.9 g/dL 12.0-1 5.6 Not Available [facility] (Lab) [address] [place], [address], 12/21/2022 12:27:16 12/22/19 23 12/21/2022 CBC/C OMPLE TE BLD COUNT W/DIF F hematocrit 40.7 % 35.7-4 5.7 Not Available [facility] (Lab) [address] [place], [address], 12/21/2022 12:27:16 12/22/1912/21/2022 CBC/C OMPLE TE BLD COUNT W/DIF F mean red cell volume 92.9 fL 82.0-9 9.0 Not Available [facility] (Lab) [address] [place], [address], 12/21/2022 12:27:16 12/22/19 23 12/21/2022 CBC/C OMPLE TE BLD COUNT W/DIF F mean red cell hemoglobin 31.7 pg 27.0-3 3.0 Not Available [facility] (Lab) [address] [place], [address], 12/21/2022 12:27:16 12/22/1912/21/2022 CBC/C OMPLE TE BLD COUNT W/DIF F mean RBC HGB concentratio n 34.2 g/dL 31.0-3 6.0 Not Available [facility] (Lab) [address] [place], [address], 12/21/2022 12:27:16 12/22/19 23 12/21/2022 CBC/C OMPLE TE BLD COUNT W/DIF F red cell distribution width 12.7 % 11.8-1 5.5 Not Available [facility] (Lab) [address] [place], [address], 12/21/2022 12:27:16 12/22/1912/21/2022 CBC/C OMPLE TE BLD COUNT W/DIF F platelets 263 x10'3 /uL 150-40 0 Not Available [facility] (Lab) [address] [place], [address], 12/21/2022 12:27:16 12/22/19 23 12/21/2022 CBC/C OMPLE TE BLD COUNT W/DIF F mean platelet volume 9.1 fL 9.0-12 .4 Not Available [facility] (Lab) [address] [place], [address], 12/21/2022 12:27:16 12/22/19 23 12/21/2022 CBC/C OMPLE TE BLD COUNT W/DIF F neutrophils 66.7 % 39.0-7 2.0 Not Available [facility] (Lab) [address] [place], [address], 12/21/2022 12:27:16 12/22/1912/21/2022 CBC/C OMPLE TE BLD COUNT W/DIF F lymphocytes 22.2 % 16.0-4 7.0 Not Available [facility] (Lab) [address] [place], [address], 12/21/2022 12:27:16 12/22/1912/21/2022 CBC/C OMPLE TE BLD COUNT W/DIF F monocytes 8.4 % 5.0-12 .0 Not Available [facility] (Lab) [address] [place], [address], 12/21/2022 12:27:16 12/22/19 23 12/21/2022 CBC/C OMPLE TE BLD COUNT W/DIF F eosinophils 1.8 % 1.0-7. 0 Not Available [facility] (Lab) [address] [place], [address], 12/21/2022 12:27:16 12/22/19 23 12/21/2022 CBC/C OMPLE TE BLD COUNT W/DIF F basophils 0.7 % 0.0-2. 0 Not Available [facility] (Lab) [address] [place], [address], 12/21/2022 12:27:16 12/22/19 23 12/21/2022 CBC/C OMPLE TE BLD COUNT W/DIF F immature granulocytes 0.2 % 0.00-0 .50 Not Available [facility] (Lab) [address] [place], [address], 12/21/2022 12:27:16 12/22/19 23 12/21/2022 CBC/C OMPLE TE BLD COUNT W/DIF F neutrophils, absolute count 3.81 x10'3 /uL 1.5-8. 0 Not Available [facility] (Lab) [address] [place], [address], 12/21/2022 12:27:16 12/22/1912/21/2022 CBC/C OMPLE TE BLD COUNT W/DIF F lymphocytes, absolute count 1.27 x10'3 /uL 1.07-3 .43 Not Available [facility] (Lab) [address] [place], [address], 12/21/2022 12:27:16 12/22/19 23 12/21/2022 CBC/C OMPLE TE BLD COUNT W/DIF F monocytes, absolute count 0.48 x10'3 /uL 0.29-0 .99 Not Available [facility] (Lab) [address] [place], [address], 12/21/2022 12:27:16 12/22/19 23 12/21/2022 CBC/C OMPLE TE BLD COUNT W/DIF F eosinophils, absolute count 0.10 x10'3 /uL 0.02-0 .53 Not Available [facility] (Lab) [address] [place], [address], 12/21/2022 12:27:16 12/22/19 23 12/21/2022 CBC/C OMPLE TE BLD COUNT W/DIF F basophils, absolute count 0.04 x10'3 /uL 0.01-0 .08 Not Available [facility] (Lab) [address] [place], [address], 12/21/2022 12:27:16 12/22/19 23 12/21/2022 CBC/C OMPLE TE BLD COUNT W/DIF F immature granulocytes ,absolute 0.01 x10'3 /uL 0.00-0 .05 Not Available [facility] (Lab) [address] [place], [address], 12/21/2022 12:27:16 12/22/19 23 12/21/2022 CBC/C OMPLE TE BLD COUNT W/DIF F nucleated red blood cells 0.0 % -0 Not Available [facility] (Lab) [address] [place], [address], 12/21/2022 12:27:16 12/22/19 23 12/21/2022 CBC/C OMPLE TE BLD COUNT W/DIF F NRBC# 0.00 x10'3 /uL Not Available [facility] (Lab) [address] [place], [address], 12/21/2022 12:27:16 12/22/1912/21/2022 LIPID PANEL cholesterol 175 mg/dL 140-19 9 NIH RAFAEL NSUS RECOM MENDA TION FOR KATHY STERO L: ADULT CHILD LOW RISK: <200 <170 BORDE RLINE : <200- 239 ----- HIGH RISK: >240 >200 Not Available [facility] (Lab) [address] [place], [address], 12/21/2022 12:49:43 12/22/1912/21/2022 LIPID PANEL triglyceride s 164 mg/dL 0-150 high NIH RAFAEL NSUS REPOR T RECOM MENDA TION FOR TRIGL YCERI RAFAEL: ADULT CHILD LOW RISK: <150 ----- BODER LINE: 150-1 99 ----- HIGH RISK: >200 ----- Not Available [facility] (Lab) [address] [place], [address], 12/21/2022 12:49:43 12/22/1912/21/2022 LIPID PANEL HDL cholesterol 68 mg/dL 40- Not Available [facility] (Lab) [address] [place], [address], 12/21/2022 12:49:43 12/22/1912/21/2022 LIPID PANEL LDL cholesterol, calculated 74 mg/dL 0-130 NIH RAFAEL NSUS REPOR T RECOM MENDA TIONS FOR LDL: ADULT CHILD LOW RISK <130 <110 (OPTI MAL LDL) <100 ----- BORDE RLINE : 130-1 59 ----- HIGH RISK: >160 >130 A TRIGL YCERI DE RESUL T >400 INVAL IDATE S THE CALCU LATIO N FOR LDL FRACT IONAT ION - THE LDL RESUL T WILL NOT BE REPOR NELLY. Not Available [facility] (Lab) [address] [place], [address], 12/21/2022 12:49:43 12/22/1912/21/2022 COMPR EHENS MAYE METAB OLIC PANEL sodium 136 mmol/ L 137-14 5 low Not Available [facility] (Lab) [address] [place], [address], 12/21/2022 12:49:51 12/22/1912/21/2022 COMPR EHENS MAYE METAB OLIC PANEL potassium 4.4 mmol/ L 3.5-5. 1 Not Available [facility] (Lab) [address] [place], [address], 12/21/2022 12:49:51 12/22/1912/21/2022 COMPR EHENS MAYE METAB OLIC PANEL chloride 103 mmol/ L 98-107 Not Available [facility] (Lab) [address] [place], [address], 12/21/2022 12:49:51 12/22/19 23 12/21/2022 COMPR EHENS MAYE METAB OLIC PANEL carbon dioxide 27 mmol/ L 22-30 Not Available [facility] (Lab) [address] [place], [address], 12/21/2022 12:49:51 12/22/1912/21/2022 COMPR EHENS MAYE METAB OLIC PANEL anion gap 10.4 mmol/ L 14-22 low Not Available [facility] (Lab) [address] [place], [address], 12/21/2022 12:49:51 12/22/1912/21/2022 COMPR EHENS MAYE METAB OLIC PANEL glucose 100 mg/dL 70-99 high Not Available [facility] (Lab) [address] [place], [address], 12/21/2022 12:49:51 12/22/1912/21/2022 COMPR EHENS MAYE METAB OLIC PANEL BUN 11 mg/dL 8-19 Not Available [facility] (Lab) [address] [place], [address], 12/21/2022 12:49:51 12/22/1912/21/2022 COMPR EHENS MAYE METAB OLIC PANEL creatinine 0.67 mg/dL 0.66-1 .25 Not Available [facility] (Lab) [address] [place], [address], 12/21/2022 12:49:51 12/22/1912/21/2022 COMPR EHENS MAYE METAB OLIC PANEL GFR >60 Refer ence Range : Clifford ge GFR Healt hy Adult : >60 mL/mi n/1.7 3 m2 Chron ic Kidne y Disea se: 15-60 mL/mi n/1.7 3 m2 Kidne y Failu re: <15/m L/min /1.73 m2 www.n iddk. nih.g ov The MDRD study equat ion has not been valid ated in child kit <18 years of age; pregn ant women ; the elder ly >85 years of age; or in some racia l or ethni c subgr oups, such as Hispa nics. Outsi de the valid ated alisson eters , estim ated GFR is less accur ate, requi ring clini cinthya judgm ent on a case- by-ca se basis . Clini cinthya inter preta tion for other races and ages must be made by the clini ansley. The MDRD study equat ion has not been valid ated for the evalu ation of serum creat inine relat ed to nutri erasmo l statu s or medic ation usage . For perso ns <18 years of age, a pedia tric GFR calcu lator is avail able on the [facility] websi te: https ://ww w.kid ronni.o rg/pr ofess ional s/kdo qi/gf r_cal culat or Not Available [facility] (Lab) [address] [place], [address], 12/21/2022 12:49:51 12/22/1912/21/2022 COMPR EHENS MAYE METAB OLIC PANEL alkaline phosphatase 64 U/L 38-126 Not Available [facility] (Lab) [address] [place], [address], 12/21/2022 12:49:51 12/22/19 23 12/21/2022 COMPR EHENS MAYE METAB OLIC PANEL alanine aminotransfe rase 19 U/L 0-35 Not Available [facility] (Lab) [address] [place], [address], 12/21/2022 12:49:51 12/22/1912/21/2022 COMPR EHENS MAYE METAB OLIC PANEL aspartate aminotransfe rase 26 U/L 15-37 Not Available [facility] (Lab) [address] [place], [address], 12/21/2022 12:49:51 12/22/19 23 12/21/2022 COMPR EHENS MAYE METAB OLIC PANEL bilirubin, total 0.70 mg/dL 0.20-1 .30 Not Available [facility] (Lab) [address] [place], [address], 12/21/2022 12:49:51 12/22/1912/21/2022 COMPR EHENS MAYE METAB OLIC PANEL calcium 9.4 mg/dL 8.4-10 .2 Not Available [facility] (Lab) [address] [place], [address], 12/21/2022 12:49:51 12/22/1912/21/2022 COMPR EHENS MAYE METAB OLIC PANEL total protein 7.6 g/dL 6.3-8. 2 Not Available [facility] (Lab) [address] [place], [address], 12/21/2022 12:49:51 12/22/1912/21/2022 COMPR EHENS MAYE METAB OLIC PANEL albumin 4.5 g/dL 3.0-4. 4 high Not Available [facility] (Lab) [address] [place], [address], 12/21/2022 12:49:51 12/22/1912/21/2022 COMPR EHENS MAYE METAB OLIC PANEL globulin 3.1 g/dL 2.6-4. 2 Not Available [facility] (Lab) [address] [place], [address], 12/21/2022 12:49:51 12/22/1912/21/2022 COMPR EHENS MAYE METAB OLIC PANEL A/G ratio 1.5 ratio 1.0-2. 0 Not Available [facility] (Lab) [address] [place], [address], 12/21/2022 12:49:51 12/22/1912/21/2022 VITAM IN D 25-HY DROXY vd25oh 41.9 NG/mL 30-100 Vitam in D Statu s: Defic ient: <20 ng/mL Insuf ficie nt: 20-29 ng/mL Suffi cient : 30-10 0 ng/mL Not Available [facility] (Lab) [address] [place], [address], 12/21/2022 13:04:51 12/22/19 23 12/21/2022 TSH W/REF ANAMIKA FT4 TSH with reflex free T4 3.070 uIU/m L 0.465- 4.680 Not Available [facility] (Lab) [address] [place], [address], 12/21/2022 13:17:07 12/22/19 23 12/21/2022 HEMOG LOBIN A1C HA1C 5.4 % 4.0-6. 0 Diabe carrillo Scree adrian Crite patrick: <5.7% Consi stent with absen ce of diabe carrillo 5.7-6 .4% Consi stent with incre ased risk for diabe carrillo (pred iabet es) >OR=6 .5% Consi stent with diabe carrillo REFER ENCE: Diabe carrillo Care 2015, 39(Salas ppl.1 ):s13 -s22 Not Available [facility] (Lab) [address] [place], [address], 12/21/2022 14:20:04 09/13/19 24 09/13/2023 CBC/C OMPLE TE BLD COUNT W/DIF F white blood cells 7.3 x10'3 /uL 4.2-10 .8 Not Available [facility] (Lab) [address] [place], [address], 09/13/2023 11:37:26 09/13/19 24 09/13/2023 CBC/C OMPLE TE BLD COUNT W/DIF F red blood cells 4.66 x10'6 /uL 3.80-5 .20 Not Available [facility] (Lab) [address] [place], [address], 09/13/2023 11:37:26 09/13/19 24 09/13/2023 CBC/C OMPLE TE BLD COUNT W/DIF F hemoglobin 15.0 g/dL 12.0-1 5.6 Not Available [facility] (Lab) [address] [place], [address], 09/13/2023 11:37:26 09/13/19 24 09/13/2023 CBC/C OMPLE TE BLD COUNT W/DIF F hematocrit 43.9 % 35.7-4 5.7 Not Available [facility] (Lab) [address] [place], [address], 09/13/2023 11:37:26 09/13/19 24 09/13/2023 CBC/C OMPLE TE BLD COUNT W/DIF F mean red cell volume 94.2 fL 82.0-9 9.0 Not Available [facility] (Lab) [address] [place], [address], 09/13/2023 11:37:26 09/13/19 24 09/13/2023 CBC/C OMPLE TE BLD COUNT W/DIF F mean red cell hemoglobin 32.2 pg 27.0-3 3.0 Not Available [facility] (Lab) [address] [place], [address], 09/13/2023 11:37:26 09/13/19 24 09/13/2023 CBC/C OMPLE TE BLD COUNT W/DIF F mean RBC HGB concentratio n 34.2 g/dL 31.0-3 6.0 Not Available [facility] (Lab) [address] [place], [address], 09/13/2023 11:37:26 09/13/19 24 09/13/2023 CBC/C OMPLE TE BLD COUNT W/DIF F red cell distribution width 12.8 % 11.8-1 5.5 Not Available [facility] (Lab) [address] [place], [address], 09/13/2023 11:37:26 09/13/19 24 09/13/2023 CBC/C OMPLE TE BLD COUNT W/DIF F platelets 290 x10'3 /uL 150-40 0 Not Available [facility] (Lab) [address] [place], [address], 09/13/2023 11:37:26 09/13/19 24 09/13/2023 CBC/C OMPLE TE BLD COUNT W/DIF F mean platelet volume 9.2 fL 9.0-12 .4 Not Available [facility] (Lab) [address] [place], [address], 09/13/2023 11:37:26 09/13/19 24 09/13/2023 CBC/C OMPLE TE BLD COUNT W/DIF F neutrophils 60.7 % 39.0-7 2.0 Not Available [facility] (Lab) [address] [place], [address], 09/13/2023 11:37:26 09/13/19 24 09/13/2023 CBC/C OMPLE TE BLD COUNT W/DIF F lymphocytes 27.8 % 16.0-4 7.0 Not Available [facility] (Lab) [address] [place], [address], 09/13/2023 11:37:26 09/13/19 24 09/13/2023 CBC/C OMPLE TE BLD COUNT W/DIF F monocytes 8.8 % 5.0-12 .0 Not Available [facility] (Lab) [address] [place], [address], 09/13/2023 11:37:26 09/13/19 24 09/13/2023 CBC/C OMPLE TE BLD COUNT W/DIF F eosinophils 1.6 % 1.0-7. 0 Not Available [facility] (Lab) [address] [place], [address], 09/13/2023 11:37:26 09/13/19 24 09/13/2023 CBC/C OMPLE TE BLD COUNT W/DIF F basophils 0.7 % 0.0-2. 0 Not Available [facility] (Lab) [address] [place], [address], 09/13/2023 11:37:26 09/13/19 24 09/13/2023 CBC/C OMPLE TE BLD COUNT W/DIF F immature granulocytes 0.4 % 0.00-0 .50 Not Available [facility] (Lab) [address] [place], [address], 09/13/2023 11:37:26 09/13/19 24 09/13/2023 CBC/C OMPLE TE BLD COUNT W/DIF F neutrophils, absolute count 4.43 x10'3 /uL 1.5-8. 0 Not Available [facility] (Lab) [address] [place], [address], 09/13/2023 11:37:26 09/13/19 24 09/13/2023 CBC/C OMPLE TE BLD COUNT W/DIF F lymphocytes, absolute count 2.03 x10'3 /uL 1.07-3 .43 Not Available [facility] (Lab) [address] [place], [address], 09/13/2023 11:37:26 09/13/19 24 09/13/2023 CBC/C OMPLE TE BLD COUNT W/DIF F monocytes, absolute count 0.64 x10'3 /uL 0.29-0 .99 Not Available [facility] (Lab) [address] [place], [address], 09/13/2023 11:37:26 09/13/19 24 09/13/2023 CBC/C OMPLE TE BLD COUNT W/DIF F eosinophils, absolute count 0.12 x10'3 /uL 0.02-0 .53 Not Available [facility] (Lab) [address] [place], [address], 09/13/2023 11:37:26 09/13/19 24 09/13/2023 CBC/C OMPLE TE BLD COUNT W/DIF F basophils, absolute count 0.05 x10'3 /uL 0.01-0 .08 Not Available [facility] (Lab) [address] [place], [address], 09/13/2023 11:37:26 09/13/19 24 09/13/2023 CBC/C OMPLE TE BLD COUNT W/DIF F immature granulocytes ,absolute 0.03 x10'3 /uL 0.00-0 .05 Not Available [facility] (Lab) [address] [place], [address], 09/13/2023 11:37:26 09/13/19 24 09/13/2023 CBC/C OMPLE TE BLD COUNT W/DIF F nucleated red blood cells 0.0 % -0 Not Available [facility] (Lab) [address] [place], [address], 09/13/2023 11:37:26 09/13/19 24 09/13/2023 CBC/C OMPLE TE BLD COUNT W/DIF F NRBC# 0.00 x10'3 /uL Not Available [facility] (Lab) [address] [place], [address], 09/13/2023 11:37:26 09/13/19 24 09/13/2023 LIPID PANEL cholesterol 179 mg/dL 140-19 9 NIH RAFAEL NSUS RECOM MENDA TION FOR KATHY STERO L: ADULT CHILD LOW RISK: <200 <170 BORDE RLINE : <200- 239 ----- HIGH RISK: >240 >200 Not Available [facility] (Lab) [address] [place], [address], 09/13/2023 12:12:35 09/13/19 24 09/13/2023 LIPID PANEL triglyceride s 131 mg/dL 0-150 NIH RAFAEL NSUS REPOR T RECOM MENDA TION FOR TRIGL YCERI RAFAEL: ADULT CHILD LOW RISK: <150 ----- BODER LINE: 150-1 99 ----- HIGH RISK: >200 ----- Not Available [facility] (Lab) [address] [place], [address], 09/13/2023 12:12:35 09/13/19 24 09/13/2023 LIPID PANEL HDL cholesterol 112 mg/dL 40- Not Available [facility] (Lab) [address] [place], [address], 09/13/2023 12:12:35 09/13/19 24 09/13/2023 LIPID PANEL LDL cholesterol, calculated 41 mg/dL 0-130 NIH RAFAEL NSUS REPOR T RECOM MENDA TIONS FOR LDL: ADULT CHILD LOW RISK <130 <110 (OPTI MAL LDL) <100 ----- DENIS RLINE : 130-1 59 ----- HIGH RISK: >160 >130 A TRIGL YCERI DE RESUL T >400 INVAL IDATE S THE CALCU LATIO N FOR LDL FRACT IONAT ION - THE LDL RESUL T WILL NOT BE REPOR NELLY. Not Available [facility] (Lab) [address] [place], [address], 09/13/2023 12:12:35 09/13/19 24 09/13/2023 MICRO ALBUM IN RANDO M URINE microalbumin , urine 18.3 mg/L 0.0-16 .6 high Not Available [facility] (Lab) [address] [place], [address], 09/13/2023 12:15:23 09/13/19 24 09/13/2023 VITAM IN D 25-HY DROXY vd25oh 42.2 NG/mL 30-100 Vitam in D Statu s: Defic ient: <20 ng/mL Insuf ficie nt: 20-29 ng/mL Suffi cient : 30-10 0 ng/mL Not Available [facility] (Lab) [address] [place], [address], 09/13/2023 12:18:42 09/13/19 24 09/13/2023 T4 FREE free T4 1.07 NG/dL 0.78-2 .19 Not Available [facility] (Lab) [address] [place], [address], 09/13/2023 12:33:23 09/13/19 24 09/13/2023 TSH thyroid-stim ulating hormone 6.540 uIU/m L 0.465- 4.680 high Not Available [facility] (Lab) [address] [place], [address], 09/13/2023 12:35:06 09/13/19 24 09/13/2023 COMPR EHENS MAYE METAB OLIC PANEL sodium 136 mmol/ L 137-14 5 low Not Available [facility] (Lab) [address] [place], [address], 09/13/2023 12:48:44 09/13/19 24 09/13/2023 COMPR EHENS MAYE METAB OLIC PANEL potassium 4.5 mmol/ L 3.5-5. 1 Not Available [facility] (Lab) [address] [place], [address], 09/13/2023 12:48:44 09/13/19 24 09/13/2023 COMPR EHENS MAYE METAB OLIC PANEL chloride 102 mmol/ L 98-107 Not Available [facility] (Lab) [address] [place], [address], 09/13/2023 12:48:44 09/13/19 24 09/13/2023 COMPR EHENS MAYE METAB OLIC PANEL carbon dioxide 27 mmol/ L 22-30 Not Available [facility] (Lab) [address] [place], [address], 09/13/2023 12:48:44 09/13/19 24 09/13/2023 COMPR EHENS MAYE METAB OLIC PANEL anion gap 11.5 mmol/ L 14-22 low Not Available [facility] (Lab) [address] [place], [address], 09/13/2023 12:48:44 09/13/19 24 09/13/2023 COMPR EHENS MAYE METAB OLIC PANEL glucose 91 mg/dL 70-99 Not Available [facility] (Lab) [address] [place], [address], 09/13/2023 12:48:44 09/13/19 24 09/13/2023 COMPR EHENS MAYE METAB OLIC PANEL BUN 24 mg/dL 8-19 high Not Available [facility] (Lab) [address] [place], [address], 09/13/2023 12:48:44 09/13/19 24 09/13/2023 COMPR EHENS MAYE METAB OLIC PANEL creatinine 0.72 mg/dL 0.66-1 .25 Not Available [facility] (Lab) [address] [place], [address], 09/13/2023 12:48:44 09/13/19 24 09/13/2023 COMPR EHENS MAYE METAB OLIC PANEL GFR >60 Refer ence Range : Clifford ge GFR Healt hy Adult : >60 mL/mi n/1.7 3 m2 Chron ic Kidne y Disea se: 15-60 mL/mi n/1.7 3 m2 Kidne y Failu re: <15/m L/min /1.73 m2 www.n iddk. nih.g ov The MDRD study equat ion has not been valid ated in child kit <18 years of age; pregn ant women ; the elder ly >85 years of age; or in some racia l or ethni c subgr oups, such as Hispa nics. Outsi de the valid ated alisson eters , estim ated GFR is less accur ate, requi ring clini cinthya judgm ent on a case- by-ca se basis . Clini cinthya inter preta tion for other races and ages must be made by the clini ansley. The MDRD study equat ion has not been valid ated for the evalu ation of serum creat inine relat ed to nutri erasmo l statu s or medic ation usage . For perso ns <18 years of age, a pedia tric GFR calcu lator is avail able on the [facility] websi te: https :[email or web address] w.hebert [email or web address].o rg/pr ofess ional s/kdo qi/gf r_cal culat or Not Available [facility] (Lab) [address] [place], [address], 09/13/2023 12:48:44 09/13/19 24 09/13/2023 COMPR EHENS MAYE METAB OLIC PANEL alkaline phosphatase 79 U/L 38-126 Not Available [facility] (Lab) [address] [place], [address], 09/13/2023 12:48:44 09/13/19 24 09/13/2023 COMPR EHENS MAYE METAB OLIC PANEL alanine aminotransfe rase 21 U/L 0-35 Not Available [facility] (Lab) [address] [place], [address], 09/13/2023 12:48:44 09/13/19 24 09/13/2023 COMPR EHENS MAYE METAB OLIC PANEL aspartate aminotransfe rase 29 U/L 15-37 Not Available [facility] (Lab) [address] [place], [address], 09/13/2023 12:48:44 09/13/19 24 09/13/2023 COMPR EHENS MAYE METAB OLIC PANEL bilirubin, total 0.80 mg/dL 0.20-1 .30 Not Available [facility] (Lab) [address] [place], [address], 09/13/2023 12:48:44 09/13/19 24 09/13/2023 COMPR EHENS MAYE METAB OLIC PANEL calcium 9.5 mg/dL 8.4-10 .2 Not Available [facility] (Lab) [address] [place], [address], 09/13/2023 12:48:44 09/13/19 24 09/13/2023 COMPR EHENS MAYE METAB OLIC PANEL total protein 8.1 g/dL 6.3-8. 2 Not Available [facility] (Lab) [address] [place], [address], 09/13/2023 12:48:44 09/13/19 24 09/13/2023 COMPR EHENS MAYE METAB OLIC PANEL albumin 4.8 g/dL 3.0-4. 4 high Not Available [facility] (Lab) [address] [place], [address], 09/13/2023 12:48:44 09/13/19 24 09/13/2023 COMPR EHENS MAYE METAB OLIC PANEL globulin 3.3 g/dL 2.6-4. 2 Not Available [facility] (Lab) [address] [place], [address], 09/13/2023 12:48:44 09/13/19 24 09/13/2023 COMPR EHENS MAYE METAB OLIC PANEL A/G ratio 1.5 ratio 1.0-2. 0 Not Available [facility] (Lab) [address] [place], [address], 09/13/2023 12:48:44 09/13/19 24 09/13/2023 HEMOG LOBIN A1C HA1C 5.5 % 4.0-6. 0 Diabe carrillo Scree adrian Crite patrick: <5.7% Consi stent with absen ce of diabe carrillo 5.7-6 .4% Consi stent with incre ased risk for diabe carrillo (pred iabet es) >OR=6 .5% Consi stent with diabe carrillo REFER ENCE: Diabe carrillo Care 2016, 39(Salas ppl.1 ):s13 -s22 Not Available [facility] (Lab) [address] [place], [address], 09/13/2023 14:11:21 09/22/19 24 09/22/2023 T4 FREE free T4 1.04 NG/dL 0.78-2 .19 Not Available [facility] (Lab) [address] [place], [address], 09/22/2023 11:55:22 09/22/19 24 09/22/2023 TSH thyroid-stim ulating hormone 2.760 uIU/m L 0.465- 4.680 Not Available [facility] (Lab) [address] [place], [address], 09/22/2023 12:10:50 01/06/20 24 01/06/2024 CBC/C OMPLE TE BLD COUNT W/DIF F white blood cells 6.0 x10'3 /uL 4.2-10 .8 Not Available [facility] (Lab) [address] [place], [address], 01/06/2024 10:41:54 01/06/20 24 01/06/2024 CBC/C OMPLE TE BLD COUNT W/DIF F red blood cells 4.51 x10'6 /uL 3.80-5 .20 Not Available [facility] (Lab) [address] [place], [address], 01/06/2024 10:41:54 01/06/20 24 01/06/2024 CBC/C OMPLE TE BLD COUNT W/DIF F hemoglobin 14.4 g/dL 12.0-1 5.6 Not Available [facility] (Lab) [address] [place], [address], 01/06/2024 10:41:54 01/06/20 24 01/06/2024 CBC/C OMPLE TE BLD COUNT W/DIF F hematocrit 42.1 % 35.7-4 5.7 Not Available [facility] (Lab) [address] [place], [address], 01/06/2024 10:41:54 01/06/20 24 01/06/2024 CBC/C OMPLE TE BLD COUNT W/DIF F mean red cell volume 93.3 fL 82.0-9 9.0 Not Available [facility] (Lab) [address] [place], [address], 01/06/2024 10:41:54 01/06/20 24 01/06/2024 CBC/C OMPLE TE BLD COUNT W/DIF F mean red cell hemoglobin 31.9 pg 27.0-3 3.0 Not Available [facility] (Lab) [address] [place], [address], 01/06/2024 10:41:54 01/06/20 24 01/06/2024 CBC/C OMPLE TE BLD COUNT W/DIF F mean RBC HGB concentratio n 34.2 g/dL 31.0-3 6.0 Not Available [facility] (Lab) [address] [place], [address], 01/06/2024 10:41:54 01/06/20 24 01/06/2024 CBC/C OMPLE TE BLD COUNT W/DIF F red cell distribution width 12.5 % 11.8-1 5.5 Not Available [facility] (Lab) [address] [place], [address], 01/06/2024 10:41:54 01/06/20 24 01/06/2024 CBC/C OMPLE TE BLD COUNT W/DIF F platelets 260 x10'3 /uL 150-40 0 Not Available [facility] (Lab) [address] [place], [address], 01/06/2024 10:41:54 01/06/20 24 01/06/2024 CBC/C OMPLE TE BLD COUNT W/DIF F mean platelet volume 9.0 fL 9.0-12 .4 Not Available [facility] (Lab) [address] [place], [address], 01/06/2024 10:41:54 01/06/20 24 01/06/2024 CBC/C OMPLE TE BLD COUNT W/DIF F neutrophils 66.9 % 39.0-7 2.0 Not Available [facility] (Lab) [address] [place], [address], 01/06/2024 10:41:54 01/06/2001/06/2024 CBC/C OMPLE TE BLD COUNT W/DIF F lymphocytes 23.1 % 16.0-4 7.0 Not Available [facility] (Lab) [address] [place], [address], 01/06/2024 10:41:54 01/06/2001/06/2024 CBC/C OMPLE TE BLD COUNT W/DIF F monocytes 7.9 % 5.0-12 .0 Not Available [facility] (Lab) [address] [place], [address], 01/06/2024 10:41:54 01/06/20 24 01/06/2024 CBC/C OMPLE TE BLD COUNT W/DIF F eosinophils 1.3 % 1.0-7. 0 Not Available [facility] (Lab) [address] [place], [address], 01/06/2024 10:41:54 01/06/2001/06/2024 CBC/C OMPLE TE BLD COUNT W/DIF F basophils 0.5 % 0.0-2. 0 Not Available [facility] (Lab) [address] [place], [address], 01/06/2024 10:41:54 01/06/2001/06/2024 CBC/C OMPLE TE BLD COUNT W/DIF F immature granulocytes 0.3 % 0.00-0 .50 Not Available [facility] (Lab) [address] [place], [address], 01/06/2024 10:41:54 01/06/20 24 01/06/2024 CBC/C OMPLE TE BLD COUNT W/DIF F neutrophils, absolute count 3.99 x10'3 /uL 1.5-8. 0 Not Available [facility] (Lab) [address] [place], [address], 01/06/2024 10:41:54 01/06/20 24 01/06/2024 CBC/C OMPLE TE BLD COUNT W/DIF F lymphocytes, absolute count 1.38 x10'3 /uL 1.07-3 .43 Not Available [facility] (Lab) [address] [place], [address], 01/06/2024 10:41:54 01/06/20 24 01/06/2024 CBC/C OMPLE TE BLD COUNT W/DIF F monocytes, absolute count 0.47 x10'3 /uL 0.29-0 .99 Not Available [facility] (Lab) [address] [place], [address], 01/06/2024 10:41:54 01/06/20 24 01/06/2024 CBC/C OMPLE TE BLD COUNT W/DIF F eosinophils, absolute count 0.08 x10'3 /uL 0.02-0 .53 Not Available [facility] (Lab) [address] [place], [address], 01/06/2024 10:41:54 01/06/20 24 01/06/2024 CBC/C OMPLE TE BLD COUNT W/DIF F basophils, absolute count 0.03 x10'3 /uL 0.01-0 .08 Not Available [facility] (Lab) [address] [place], [address], 01/06/2024 10:41:54 01/06/20 24 01/06/2024 CBC/C OMPLE TE BLD COUNT W/DIF F immature granulocytes ,absolute 0.02 x10'3 /uL 0.00-0 .05 Not Available [facility] (Lab) [address] [place], [address], 01/06/2024 10:41:54 01/06/20 24 01/06/2024 CBC/C OMPLE TE BLD COUNT W/DIF F nucleated red blood cells 0.0 % -0 Not Available [facility] (Lab) [address] [place], [address], 01/06/2024 10:41:54 01/06/20 24 01/06/2024 CBC/C OMPLE TE BLD COUNT W/DIF F NRBC# 0.00 x10'3 /uL Not Available [facility] (Lab) [address] [place], [address], 01/06/2024 10:41:54 01/06/2001/06/2024 LIPID PANEL cholesterol 181 mg/dL 140-19 9 NIH RAFAEL NSUS RECOM MENDA TION FOR KATHY STERO L: ADULT CHILD LOW RISK: <200 <170 BORDE RLINE : <200- 239 ----- HIGH RISK: >240 >200 Not Available [facility] (Lab) [address] [place], [address], 01/06/2024 11:32:34 01/06/2001/06/2024 LIPID PANEL triglyceride s 194 mg/dL 0-150 high NIH RAFAEL NSUS REPOR T RECOM MENDA TION FOR TRIGL YCERI RAFAEL: ADULT CHILD LOW RISK: <150 ----- BODER LINE: 150-1 99 ----- HIGH RISK: >200 ----- Not Available [facility] (Lab) [address] [place], [address], 01/06/2024 11:32:34 01/06/20 24 01/06/2024 LIPID PANEL HDL cholesterol 78 mg/dL 40- Not Available [facility] (Lab) [address] [place], [address], 01/06/2024 11:32:34 01/06/20 24 01/06/2024 LIPID PANEL LDL cholesterol, calculated 64 mg/dL 0-130 NIH RAFAEL NSUS REPOR T RECOM MENDA TIONS FOR LDL: ADULT CHILD LOW RISK <130 <110 (OPTI MAL LDL) <100 ----- BORDE RLINE : 130-1 59 ----- HIGH RISK: >160 >130 A TRIGL YCERI DE RESUL T >400 INVAL IDATE S THE CALCU LATIO N FOR LDL FRACT IONAT ION - THE LDL RESUL T WILL NOT BE REPOR NELLY. Not Available [facility] (Lab) [address] [place], [address], 01/06/2024 11:32:34 01/06/20 24 01/06/2024 COMPR EHENS MAYE METAB OLIC PANEL sodium 137 mmol/ L 137-14 5 Not Available [facility] (Lab) [address] [place], [address], 01/06/2024 11:32:40 01/06/20 24 01/06/2024 COMPR EHENS MAYE METAB OLIC PANEL potassium 4.0 mmol/ L 3.5-5. 1 Not Available [facility] (Lab) [address] [place], [address], 01/06/2024 11:32:40 01/06/20 24 01/06/2024 COMPR EHENS MAYE METAB OLIC PANEL chloride 103 mmol/ L 98-107 Not Available [facility] (Lab) [address] [place], [address], 01/06/2024 11:32:40 01/06/20 24 01/06/2024 COMPR EHENS MAYE METAB OLIC PANEL carbon dioxide 28 mmol/ L 22-30 Not Available [facility] (Lab) [address] [place], [address], 01/06/2024 11:32:40 01/06/20 24 01/06/2024 COMPR EHENS MAYE METAB OLIC PANEL anion gap 10.0 mmol/ L 14-22 low Not Available [facility] (Lab) [address] [place], [address], 01/06/2024 11:32:40 01/06/20 24 01/06/2024 COMPR EHENS MAYE METAB OLIC PANEL glucose 96 mg/dL 70-99 Not Available [facility] (Lab) [address] [place], [address], 01/06/2024 11:32:40 01/06/20 24 01/06/2024 COMPR EHENS MAYE METAB OLIC PANEL BUN 13 mg/dL 8-19 Not Available [facility] (Lab) [address] [place], [address], 01/06/2024 11:32:40 01/06/20 24 01/06/2024 COMPR EHENS MAYE METAB OLIC PANEL creatinine 0.71 mg/dL 0.66-1 .25 Not Available [facility] (Lab) [address] [place], [address], 01/06/2024 11:32:40 01/06/20 24 01/06/2024 COMPR EHENS MAYE METAB OLIC PANEL GFR >60 Refer ence Range : Clifford ge GFR Healt hy Adult : >60 mL/mi n/1.7 3 m2 Chron ic Kidne y Disea se: 15-60 mL/mi n/1.7 3 m2 Kidne y Failu re: <15/m L/min /1.73 m2 [email or web address] ov The MDRD study equat ion has not been valid ated in child kit <18 years of age; pregn ant women ; the elder ly >85 years of age; or in some racia l or ethni c subgr oups, such as Hispa nics. Outsi de the valid ated alisson eters , estim ated GFR is less accur ate, requi ring clini cinthya judgm ent on a case- by-ca se basis . Clini cinthya inter preta tion for other races and ages must be made by the clini ansley. The MDRD study equat ion has not been valid ated for the evalu ation of serum creat inine relat ed to nutri erasmo l statu s or medic ation usage . For perso ns <18 years of age, a pedia tric GFR calcu lator is avail able on the [facility] websi te: https ://ww w.kid ronni.o rg/pr ofess ional s/kdo qi/gf r_cal culat or Not Available [facility] (Lab) [address] [place], [address], 01/06/2024 11:32:40 01/06/20 24 01/06/2024 COMPR EHENS MAYE METAB OLIC PANEL alkaline phosphatase 59 U/L 38-126 Not Available [facility] (Lab) [address] [place], [address], 01/06/2024 11:32:40 01/06/20 24 01/06/2024 COMPR EHENS MAYE METAB OLIC PANEL alanine aminotransfe rase 25 U/L 0-35 Not Available [facility] (Lab) [address] [place], [address], 01/06/2024 11:32:40 01/06/20 24 01/06/2024 COMPR EHENS MAYE METAB OLIC PANEL aspartate aminotransfe rase 33 U/L 15-37 Not Available [facility] (Lab) [address] [place], [address], 01/06/2024 11:32:40 01/06/20 24 01/06/2024 COMPR EHENS MAYE METAB OLIC PANEL bilirubin, total 0.70 mg/dL 0.20-1 .30 Not Available [facility] (Lab) [address] [place], [address], 01/06/2024 11:32:40 01/06/20 24 01/06/2024 COMPR EHENS MAYE METAB OLIC PANEL calcium 9.2 mg/dL 8.4-10 .2 Not Available [facility] (Lab) [address] [place], [address], 01/06/2024 11:32:40 01/06/20 24 01/06/2024 COMPR EHENS MAYE METAB OLIC PANEL total protein 7.1 g/dL 6.3-8. 2 Not Available [facility] (Lab) [address] [place], [address], 01/06/2024 11:32:40 01/06/20 24 01/06/2024 COMPR EHENS MAYE METAB OLIC PANEL albumin 4.3 g/dL 3.0-4. 4 Not Available [facility] (Lab) [address] [place], [address], 01/06/2024 11:32:40 01/06/20 24 01/06/2024 COMPR EHENS MAYE METAB OLIC PANEL globulin 2.8 g/dL 2.6-4. 2 Not Available [facility] (Lab) [address] [place], [address], 01/06/2024 11:32:40 01/06/20 24 01/06/2024 COMPR EHENS MAYE METAB OLIC PANEL A/G ratio 1.5 ratio 1.0-2. 0 Not Available [facility] (Lab) [address] [place], [address], 01/06/2024 11:32:40 01/06/20 24 01/06/2024 HEMOG LOBIN A1C HA1C 5.5 % 4.0-6. 0 Diabe carrillo Scree adrian Crite patrick: <5.7% Consi stent with absen ce of diabe carrillo 5.7-6 .4% Consi stent with incre ased risk for diabe carrillo (pred iabet es) >OR=6 .5% Consi stent with diabe carrillo REFER ENCE: Diabe carrillo Care 2016, 39(Salas ppl.1 ):s13 -s22 Not Available [facility] (Lab) [address] [place], [address], 01/06/2024 11:44:35 01/06/20 24 01/06/2024 VITAM IN D 25-HY DROXY [id number] 35.2 NG/mL 30-100 Vitam in D Statu s: Defic ient: <20 ng/mL Insuf ficie nt: 20-29 ng/mL Suffi cient : 30-10 0 ng/mL Not Available [facility] (Lab) [address] [place], [address], 01/06/2024 11:46:01 01/06/20 24 01/06/2024 TSH W/REF ANAMIKA FT4 TSH with reflex free T4 3.980 uIU/m L 0.465- 4.680 Not Available [facility] (Lab) [address] [place], [address], 01/06/2024 11:56:42 06/09/19 24 06/09/2023 MAMMO , scree adrian, digit al, bilat eral No observ ation record ed. [email or web address], [address], 07/02/2023 17:19:41 06/10/19 24 06/09/2023 imagi ng/di agnos tic resul t No observ ation record ed. [address], [address], 06/10/2023 18:01:23 09/06/19 24 09/06/2023 imagi ng/di agnos tic resul t No observ ation record ed. [address], [place], [address], 09/06/2023 19:19:49 09/06/19 24 09/06/2023 imagi ng/di dreos tic resul t No observ ation record ed. ESTHER Mathis [facility] [address], [place], [address], 09/06/2023 19:22:47 09/27/19 24 09/27/2023 US, head + neck, soft tissu e [facility] [address] [place] [address] Patien t Name: RENÉ CHILDERS Access ion #: [id number] Sex: F : 1955 3 Dictat ed By: Rod Watts Attend ing Physic tyrese: STEF SAINZ Ordermikey ng Physic tyrese: STEF SAINZ Exam Date: 2023 11:54 AM Exam Name: US NECK HEAD SOFT TISSUE Admitt ing Diagno sis(es ): US NECK HEAD SOFT TISSUE HISTOR Y: hypert hyroid ism COMPAR DORIE: None TECHNI QUE: Transv erse and longit udinal graysc jose and color sonogr aphic images were obtain ed of the raghav RODRIGUEZ GS: Right lobe: Size: 3.4 x 1.0 x 1.8 cm Echote xture: Hetero geneou s Vascul arity: Normal Nodule s: None Left lobe: Size: 3.7 x 0.8 x 1.8 cm Echote xture: Hetero geneou s Vascul arity: Normal Nodule s: None Isthmu s: Page 1 [facility] [address] [place] [address] Patien t Name: RENÉ CHILDERS Access ion #: [id number] Sex: F : 1955 3 Dictat ed By: Rod Watts Attend ing Physic tyrese: ARIANNA HOLT Ordermikey ng Physic tyrese: STEF SAINZ Exam Date: 2023 11:54 AM Exam Name: US NECK HEAD SOFT TISSUE Admitt ing Diagno sis(es ): Size: 0.3 cm Nodule s: None Lymph nodes: None Parath yroid: Not visual ized IMPRES PARISH: Hetero geneou s appear ing thyroi d gland with normal vascul arity and no discre te nodule s identi fied. Electr onical ly Signed by: Rod Watts at 2023 14:10: 27 PM Page 2 [facility] (Imaging) [address] [place], [address], 03/03/2024 17:12:54 09/27/1909/27/2023 US, thyro id No observ ation record ed. [email or web address] [facility] [address] [place], [address], 03/03/2024 17:12:54 Result Notes None recorded. Problems Name Problem SNOMED Code Status Onset Date Resolution Date Notes Provider Name and Address Organization Details Recorded Time Closed fracture of lateral malleolus 59936833 Active Not Available [facility] 3 05:58:10 Fracture of lower leg 200908639 Active Not Available [facility] 3 05:58:10 Acute urinary tract infection 643935778 Active 2021 Not Available [facility] 3 05:58:10 Candidiasi s of vagina 78257508 Active 2021 Not Available [facility] 3 05:58:10 Anemia 556792903 Active 2021 Not Available [facility] 3 05:58:10 Hyperglyce kira 98406915 Active 2021 Not Available [facility] 3 05:58:11 Bilateral osteoarthr itis of knees 3817139826222 07 Active 2021 Not Available [facility] 3 05:58:10 Pain of right hip joint 6054087116513 02 Active 2021 Not Available [facility] 3 05:58:10 Trochanter ic bursitis of right hip 4982231772547 00 Active 2021 Not Available [facility] 3 05:58:10 Pain of right knee joint 6752988031263 00 Active 2021 Not Available [facility] 3 05:58:10 COVID-19 272835494 Active 2021 Not Available [facility] 3 05:58:11 Anxiety 40169756 Active 2022 Not Available [facility] 3 05:58:10 Vitamin D deficiency 19407670 Active 2022 Aliya Robertson [facility], [facility] 3 11:21:36 Hyperlipid emia 14788067 Active 2022 Irma esparza MD [address], [place], [address] , [facility] 3 10:44:02 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 2022 Irma esparza MD [address], [address], [place], [address] , [facility] 3 10:44:16 Gastroesop hageal reflux disease without esophagiti s 965649761 Active 2022 Irma esparza MD [address], [address], [place], [address] , [facility] 3 10:44:19 Moderate recurrent major depression 77887461 Active 2022 Irma esparza MD [address], [place], [address] , [facility] 3 10:44:25 Obesity 352003158 Active 2022 Irma esparza MD [address], [place], [address] , [facility] 3 10:44:50 Pain of right shoulder joint 7056696698714 9100 Active 2022 Irma esparza MD [address], [place], [address] , [facility] 3 10:45:00 Prediabete s 894930813 Active 2022 Irma esparza MD [address], [place], [address] , [facility] 3 10:45:06 Pruritic rash 42481747 Active 2022 Irma esparza MD [address], [place], [address] , [facility] 3 10:45:35 Environmen tino allergy 566500301 Active 2022 Irma esparza MD [address], [place], [address] , [facility] 3 10:47:39 Trigger finger of right hand 6411667166512 9101 Active 2022 Irma esparza MD [address], [place], [address] , [facility] 3 14:45:47 Trigger finger of left hand 6496300430761 9107 Active 2022 Imra esparza MD [address], [place], [address] , [facility] 3 14:46:09 Pain of left hand 5542781123024 03 Active 2022 JAQUELIN Bass, [facility] 3 10:46:35 Follicular cysts of skin and subcutaneo us tissue 807444770 Active 2022 Irma esparza MD [address], [place], [address] , [facility] [employer] [facility] 3 14:45:48 Hyperthyro idism 57730790 Active 2023 Jessica Palacios MA null, [facility] [employer] [facility] 4 12:57:58 Chronic kidney disease 320359735 Active 2023 Jessica Palacios MA null, [facility] [employer] [facility] 4 12:58:14 Thyroid stimulatin g hormone level above reference range 383881967 Active 2023 Irma esparza MD [address], [address], [place], [address] , [facility] [employer] [facility] [employer] [facility] 4 18:57:29 Osteoporos is 78292999 Active 2023 Irma esparza MD [address], [address], [place], [address] , [facility] [employer] [facility] [employer] [facility] 4 14:17:56 Low back pain 025402885 Active 2023 Irma esparza MD [address], [address], [place], [address] , [facility] [employer] [facility] [employer] [facility] 4 14:33:12 Proteinuri a 86394121 Active 2023 Irma esparza MD [address], [address], [place], [address] , [facility] [employer] [facility] [employer] [facility] 4 15:42:12 Problem Notes None recorded. Procedures Surgical History Date Name Laterality Status Provider Name and Address Organization Details Recorded Time 01/12/20 24 Medicare Wellness CPT Code, subsequent completed Saul Tong LPN [facility] [employer] [facility] 01/12/2024 08:12:27 01/12/20 Advanced Care Planning completed Saul Tong LPN [facility] [employer] [facility] 01/12/2024 15:44:47 01/01/20 23 Medicare Wellness CPT Code, subsequent completed Nilda Latham RN [facility] [employer] [facility] 12/31/2022 14:30:37 12/17/19 21 Most Recent Bone Density completed Not Available [facility] 04/22/2022 05:53:22 Gallbladder Surgery completed Not Available [facility] 04/22/2022 05:53:24 Tubal Ligation completed Not Available [facility] 04/22/2022 05:53:24 Carpal tunnel completed Not Available [facility] 04/22/2022 05:53:24 section completed Not Available [facility] 04/22/2022 05:53:24 Imaging Results None recorded. Procedure Notes None recorded. Medical Equipment None Reported. Allergies Allergen ID Allergen Name Allergen Category Reaction Reaction Severity Criticality Documentation Date Start Date Code Code System Note Provider Name and Address Organization Details Recorded Time 11836 Flagyl medicatio n vomiting Not available Not available 04/22/2022 6 RxNorm Not Available [facility] 06:04:57 Medications Name Sig Start Date Stop Date Status Note LastModified by Organization Details LastModified Time fluoxetine 40 mg capsule 09/05 completed Not Available Not Available Not Available cyclobenzap rine 10 mg tablet TAKE 1 TABLET BY MOUTH NEEDED AT BEDTIME FOR 30 DAYS 09/03 completed Not Available Not Available Not Available amoxicillin 500 mg capsule 09/05 completed Not Available Not Available Not Available metformin 500 mg tablet Take 1 tablet twice a day by oral route. 10/22 completed Not Available Not Available Not Available prednisone 10 mg tablet TAKE 1 TAB 3 TIMES DAILY X 3 DAYS, 1 TAB TWICE DAILY X 2 DAYS THEN 1 TAB DAILY X 1 DAY 08/27 completed Not Available Not Available Not Available Iron (ferrous sulfate) 325 mg (65 mg iron) tablet Take 2 tablets every day by oral route. active Not Available Not Available No t Available ibuprofen 800 mg tablet TAKE 1 TABLET BY MOUTH THREE TIMES DAILY 12/05 completed Not Available Not Available Not Available fluconazole 150 mg tablet TAKE 1 TABLET BY MOUTH FOR 1 DAY 09/29 completed Not Available Not Available Not Available cephalexin 250 mg capsule Take 1 capsule 4 times a day by oral route for 7 days. 09/29 completed Not Available Not Available Not Available alendronate 70 mg tablet TAKE 1 TABLET BY MOUTH EVERY WEEK active Not Available Not Available No t Available sertraline 100 mg tablet TAKE 1 TABLET BY MOUTH EVERY OTHER DAY 10/22 completed Not Available Not Available Not Available Zyrtec 10 mg tablet Take 1 tablet every day by oral route. 2020 active Not Available Not Available Not Avai lable ciprofloxac in 500 mg tablet 09/05 completed Not Available Not Available Not Available sulfamethox azole 800 mg-trimetho prim 160 mg tablet 09/05 completed Not Available Not Available Not Available tramadol 50 mg tablet TAKE 1 TABLET BY MOUTH EVERY 4-6 HOURS NEEDED FOR PAIN 12/16 completed Not Available Not Available Not Available triamcinolo ne acetonide 0.1 % topical cream 10/22 completed Not Available Not Available Not Available prednisone 10 mg tablets in a dose pack Take 1 tab by mouth, 3 times a day for 3 daysTake 1 tab by mouth 2 times a day for 2 daysTake 1 tab by mouth once a day for 1 day 08/27 completed Not Available Not Available Not Available amoxicillin 875 mg tablet TAKE 1 TABLET BY MOUTH TWICE A DAY UNTIL GONE 12/11 completed Not Available Not Available Not Available alprazolam 0.25 mg tablet TAKE 1 TABLET BY MOUTH DAILY active Not Available Not Available No t Available Vitamin C 1,000 mg tablet Take 1 tablet every day by oral route. active Not Available Not Available No t Available Kenalog 10 mg/mL suspension for injection in office 12/31 completed [facility]: 0003- 0494- 20 Not Available Not Available Not Available prednisone 50 mg tablet 50 MG ORALLY DAILY 1ST DOSE TOMORROW 01/11 completed Not Available Not Available Not Available omeprazole 20 mg capsule,del ayed release TAKE 1 CAPSULE BY MOUTH EVERY DAY NEEDED 2024 active Not Available Not Available Not Avai lable methylpredn isolone 4 mg tablets in a dose pack TAKE 6 TABLETS ON DAY 1 DIRECTED ON PACKAGE AND DECREASE BY 1 TAB EACH DAY FOR A TOTAL OF 6 DAYS 09/29 completed Not Available Not Available Not Available fluoxetine 20 mg capsule 09/05 completed Not Available Not Available Not Available fluticasone propionate 50 mcg/actuati on nasal spray,suspe nsion USE 1 SPRAY(S) IN EACH NOSTRIL TWICE DAILY FOR 30 DAYS 09/03 completed Not Available Not Available Not Available sertraline 50 mg tablet TAKE 1 TABLET BY MOUTH EVERY DAY active Not Available Not Available No t Available oxycodone 5 mg tablet 10/28 completed Not Available Not Available Not Available cyclobenzap rine 5 mg tablet 5 MG ORALLY THREE TIMES A DAY NEEDED FOR MUSCLE SPASM 01/11 completed Not Available Not Available Not Available rosuvastati n 10 mg tablet TAKE 1 TABLET BY MOUTH EVERY DAY active Not Available Not Available No t Available Vesicare 5 mg tablet Take 1 tablet every day by oral route. 09/05 completed Not Available Not Available Not Available vitamin B complex active Not Available Not Available Not Available Multiple Vitamin, Womens TK 1T PO QD 2020 active Not Available Not Available Not Avai lable Calcium 600 + D(3) 600 mg-5 mcg (200 unit) capsule Take 2 capsules every day by oral route. active Not Available Not Available No t Available ropivacaine (PF) 5 mg/mL (0.5 %) injection solution in office 12/31 completed [facility] [address] -064- 01 Not Available Not Available Not Available vitamin E (dl, acetate) 90 mg (200 unit) capsule Take by oral route. active Not Available Not Available No t Available Myrbetriq 50 mg tablet,exte nded release Take 1 tablet every day by oral route. 09/05 completed Not Available Not Available Not Available Prepopik 10 mg-3.5 gram-12 gram oral powder packet Take 2 packets by oral route as directed. 09/05 completed Not Available Not Available Not Available Linzess 145 mcg capsule Take 1 capsule every day by oral route. active Not Available Not Available No t Available Fluzone Quad 2017-(PF) 60 mcg(15 mcgx4)/0.5 mL intramuscul ar syringe 09/05 completed Not Available Not Available Not Available Paxlovid 300 mg (150 mg x 2)-100 mg tablets in a dose pack TAKE 2 NIRMATREL VIR & 1 RITONAVIR TABLET BY MOUTH TWICE DAILY FOR 5 DAYS 08/27 completed Not Available Not Available Not Available Vitals Date Recorded Body height Body mass index (BMI) Body weight Body temperature Heart rate Oxygen saturation Oxygen saturation in Arterial blood by Pulse oximetry Systolic And Diastolic Provider Name and Address Organization Details Last Updated DateTime 5 154.94 cm 42.7 kg/m2 027143. 88 g 96.2 [degF] 97 /min 97 % 97 % 140/88 mm[Hg] Miladis Desir MA [facility] [employer] [facility] 5 13:59:27 Date Recorded Body height Body mass index (BMI) Body weight Body temperature Heart rate Systolic And Diastolic Provider Name and Address Organization Details Last Updated DateTime 4 154.94 cm 43.8 kg/m2 479440. 43 g 97.7 [degF] 78 /min 124/80 mm[Hg] [facility] [employer] [facility] 4 14:09:41 Date Recorded Body height Body mass index (BMI) Body weight Body temperature Heart rate Systolic And Diastolic Provider Name and Address Organization Details Last Updated DateTime 4 154.94 cm 43.8 kg/m2 556947. 43 g 97.7 [degF] 84 /min 124/80 mm[Hg] Ann Marie Newton [facility] [employer] [facility] 4 15:05:57 Date Recorded Body height Body mass index (BMI) Body weight Body temperature Heart rate Systolic And Diastolic Provider Name and Address Organization Details Last Updated DateTime 3 154.94 cm 42.1 kg/m2 030489. 1 g 97.6 [degF] 78 /min 124/80 mm[Hg] [facility] [employer] [facility] 3 14:13:24 Date Recorded Body height Body mass index (BMI) Body weight Body temperature Respiratory rate Oxygen saturation Oxygen saturation in Arterial blood by Pulse oximetry Heart rate Systolic And Diastolic Provider Name and Address Organization Details Last Updated DateTime 4 154.94 cm 44.2 kg/m2 416783. 61 g 98.2 [degF] 18 /min 98 % 98 % 96 /min 132/70 mm[Hg] Saul Tong LPN [facility] [employer] [facility] 4 15:07:35 Social History Question Answer Notes LastModified by Organization Details LastModified Time Tobacco Smoking Status Former Smoker QUIT 20YRS AGO Not Available [facility] 04/22/2022 05:52:45 Do You Have An Advance Directive? No [id number] Information not available 04/22/2022 Are You Blind Or Do You Have Difficulty Seeing? No MIGRATION.[id number] [id number] Information not available 04/22/2022 What Is Your Level Of Caffeine Consumption? Occasional [email or web address].[id number] [id number] Information not available 04/22/2022 How Much Tobacco Do You Chew? None MIGRATION.[id number] [id number] Information not available 04/22/2022 In The 14 Days Before Symptom Onset, Have You Had Close Contact With A Laboratory-confi rmed COVID-19 While That Case Was Ill? No MIGRATION.[id number] [id number] Information not available 04/22/2022 In The 14 Days Before Symptom Onset, Have You Had Close Contact With A Person Who Is Under Investigation For COVID-19 While That Person Was Ill? No [email or web address].[id number] [id number] Information not available 04/22/2022 Are You Deaf Or Do You Have Serious Difficulty Hearing? No [email or web address].030 [id number] Information not available 04/22/2022 What Type Of Diet Are You Following? REGULAR [email or web address].030 [id number] Information not available 04/22/2022 Which Illicit Or Recreational Drugs Have You Used? NONE MIGRATION.030 [id number] Information not available 04/22/2022 What Is The Highest Grade Or Level Of School You Have Completed Or The Highest Degree You Have Received? [id number] MIGRATION.030 [id number] Information not available 04/22/2022 Have There Been Any Changes To Your Family Or Social Situation? No MIGRATION.030 [id number] Information not available 04/22/2022 What Is The Fluoride Status Of Your Home? Unknown [email or web address].030 [id number] Information not available 04/22/2022 When Did You Quit Smoking? 15+yearssincelgabino santana MIGRATION.030 [id number] Information not available 04/22/2022 Are There Any Guns Present In Your Home? No MIGRATION.0301 [id number] Information not available 04/22/2022 Do You Use Insect Repellent Routinely? Yes MIGRATION.0301 [id number] Information not available 04/22/2022 Where Do You Live? SingleLevelHouse MIGRATION.0301 [id number] Information not available 04/22/2022 Guns Present In The Home? No [email or web address] Information not available 12/31/2022 Are You Able To Care For Yourself? Yes [email or web address] Information not available 12/31/2022 Are You Blind Or Do Yo Have Difficulty Seeing? No [email or web address] Information not available 12/31/2022 Are You Deaf Or Do You Have Serious Difficulty Hearing? No [email or web address] Information not available 12/31/2022 Live Alone Of With Others? With Others [email or web address] Information not available 12/31/2022 Do You Have A Medical Power Of Ag Equipment Field Service Technician? No MIGRATION.0301 [id number] Information not available 04/22/2022 What Was The Date Of Your Most Recent Tobacco Screening? 07/12/2024 Information not available 07/12/2024 Do You Have Any Pets? No MIGRATION.0301 [id number] Information not available 04/22/2022 What Is Your Relationship Status? MIGRATION.0301 [id number] Information not available 04/22/2022 Do You Use Your Seat Belt Or Car Seat Routinely? Yes MIGRATION.0301 [id number] Information not available 04/22/2022 Do You Have Smoke And Carbon Monoxide Detectors In Your Home? Yes MIGRATION.0301 [id number] Information not available 04/22/2022 At What Age Did You Start Smoking Tobacco? 14 MIGRATION.0301 [id number] Information not available 04/22/2022 Are You Passively Exposed To Smoke? No MIGRATION.0301 [id number] Information not available 04/22/2022 Are There Any Smokers In Your House? No MIGRATION.[id number] [id number] Information not available 04/22/2022 How Much Tobacco Do You Smoke? No Was 1pd MIGRATION.0301 [id number] Information not available 04/22/2022 Do You Use Sunscreen Routinely? No MIGRATION.0301 [id number] Information not available 04/22/2022 Have You Recently Traveled Abroad? No MIGRATION.0301 [id number] Information not available 04/22/2022 Do You Have Difficulty Walking Or Climbing Stairs? No MIGRATION.0301 [id number] Information not available 04/22/2022 Do You Have Any Dietary Restrictions? No MIGRATION.0301 [id number] Information not available 04/22/2022 Sex: Female Functional Status Question Answer Note LastModified by Organizat ion Details LastModified Time Do you or have you ever used smokeless tobacco? Never used smokeless tobacco MIGRATION.892981 0808 Information not available 04/22/2022 Are you currently employed? No Information not available 07/12/2024 Do you have transportation difficulties? No MIGRATION.723168 [id number] Information not available 04/22/2022 Are you able to care for yourself? Yes MIGRATION.595494 9472 Information not available 04/22/2022 Do you have difficulty dressing or bathing? No MIGRATION.520137 1661 Information not available 04/22/2022 Do you or have you ever used e-cigarettes or vape? Never used electronic cigarettes MIGRATION.903697 5711 Information not available 04/22/2022 What is your exercise level? None MIGRATION.363235 6408 Information not available 04/22/2022 Do you use any illicit or recreational drugs? No MIGRATION.864693 4694 Information not available 04/22/2022 Do you or have you ever used any other forms of tobacco or nicotine? No MIGRATION.329440 7262 Information not available 04/22/2022 What is your level of alcohol consumption? None MIGRATION.186509 4370 Information not available 04/22/2022 Are you able to walk? YESASSIST MIGRATION.052814 0120 Information not available 04/22/2022 Do you have difficulty doing errands alone? No MIGRATION.473730 5279 Information not available 04/22/2022 What is your occupation? RETIRED MIGRATION.509180 2749 Information not available 04/22/2022 Mental Status Question Answer Note LastModified by Organizat ion Details LastModified Time Do you feel stressed (tense, restless, nervous, or anxious, or unable to sleep at night)? [id number] MIGRATION.[id number] 26 Information not available 04/22/2022 Do you have difficulty concentrating, remembering or making decisions? No MIGRATION.[id number] 26 Information not available 04/22/2022 Family History Relationship Description Onset Age of this Age Resolved Age Notes LastModified by Organization Details LastModified Time Sister Leukemia 13 MIGRATION.630 [id number] Not available 04/22/2022 05:53:25 Father Cerebrovascu lar accident MIGRATION.844 [id number] Not available 04/22/2022 05:53:25 Mother Cerebrovascu lar accident 90 MIGRATION.316 [id number] Not available 04/22/2022 05:53:25 Medical History Condition Response NERVE DISEASE N BLINDNESS N RHEUMATIC FEVER N KIDNEY STONES N BLADDER PROBLEMS N MRSA N OTHER # 1 N POLIO N LUNG DISEASE/DISORDER N COPD N RADIATION / CHEMOTHERAPY N Other # 2 N BLOOD DISEASES N EAR OR HEARING PROBLEMS N MUMPS N DEPRESSION (INCLUDING POST ) Y BOWEL PROBLEMS N STROKE/TIA N ULCERS N BENIGN PROSTATIC HYPERPLASIA N MEASLES N MYOCARDIAL INFARCTION N OBESITY N GERD/NAUSEA Y ANEURYSM N URINARY/BLADDER/KIDNEY PROBLEMS N CORONARY ARTERY DISEASE (CAD) N ADDICTION CONCERNS N Impotence N ENDOMETRIOSIS N USE OF BLOOD THINNERS N SKIN PROBLEMS N GASTROINTESTINAL DISORDER N PERIPHERAL VASCULAR DISEASE N MUSCLE,JOINT OR BONE PROBLEMS N GASTROINTESTINAL BLEEDING N BLOOD CLOTS N ASTHMA N CATARACTS N ERECTILE DYSFUNCTION N VARICOSITIES N GI PROBLEMS Y Low Testosterone N INFERTILITY N AIDS/HIV N CHEMOTHERAPY / RADIATION N LIVER DISEASE Y MALE HYPOGONADISM N HYPERTENSION N Deficiency Y TOURETTE'S N ANXIETY DISORDER N BLOOD TRANSFUSION N ANEMIA/BLOOD DISORDER Y CHRONIC EAR INFECTIONS N BRONCHITIS N TUBERCULOSIS N GLAUCOMA N FOOT PROBLEM N DIVERTICULITIS N SLEEP APNEA N CHICKENPOX N INFECTIOUS DISEASE N PROSTATE N HEART ARRHYTHMIA N INSOMNIA N HIGH CHOLESTEROL / HYPERLIPIDEMIA Y EYE PROBLEMS N HYPERTHYROIDISM N EDEMA N CHRONIC PAIN SYNDROME N HYPOTHYROIDISM N CAROTID BLOCKAGE N CONSTIPATION N BACK / NECK PROBLEMS N ATHEROSCLEROSIS N BREAST PROBLEMS N DIALYSIS N ECZEMA N OSTEOPOROSIS N ARTHRITIS Y APPENDICITIS N DIABETES, TYPE N BAD TEETH N ENT N HEARTBURN / REFLUX N AUTISM SPECTRUM DISORDER (ASD) N HEPATITIS / LIVER DISEASE N GOUT N SLEEP DISORDER N ALZHEIMER'S DISEASE N Brain Problems N DEMENTIA N HERPES N SEIZURES/EPILEPSY N HEADACHES/MIGRAINES N VASCULAR DISEASE N PACEMAKER N Blood Disorder N DIZZINESS N HEART DISEASE/HEART PROBLEMS N KIDNEY DISEASE N MULTIPLE SCLEROSIS N CANCER: SPECIFY N CARDIAC ARRHYTHMIA N ATRIAL FIBRILLATION N Gall Stones N PULMONARY EMBOLISM N AUTOIMMUNE DISEASE N Gynecological History Statement/Question Response How many live births 1 Date of Last Mammogram 12/16/2020 Date of Last Colonoscopy Date of Last Mammogram Most Recent Bone Density 12/16/2020 Date of LMP Date of Last Pap Current Control Method Tubal Ligat ion Obstetrics History GPAL:G 1 P 1 0 0 1 Type Value Multiple Births 0 Full Term 1 Induced 0 Spontaneous 0 Premature 0 Living 1 Ectopics 0 Total 1 Immunizations Vaccine Type Date Status Note Provider Tavon woodard and Address Organization Details Recorded Time RSV, recombinant, protein subunit RSVpreF, adjuvant reconstituted, 0.5 mL, PF 4 completed Ann Marie Marietta, RMA null, [facility] 02/21/2024 15:57:08 Influenza, split virus, quadrivalent, preservative 6 completed Ann Marie Lamar, RMA null, [facility] 12/10/2023 11:55:38 Influenza, split virus, quadrivalent, preservative 0 completed Ann Marie Newton RMA null, [facility] 12/10/2023 11:55:38 Influenza, split virus, quadrivalent, preservative 5 completed Ann Marie Lamar RMA null, [facility] 12/10/2023 11:55:38 Influenza, split virus, quadrivalent, preservative 9 completed Ann Marie Newton RMA null, [facility] 12/10/2023 11:55:38 zoster recombinant 3 completed Ann Marie Newton RMA null, [facility] 12/10/2023 11:55:38 zoster recombinant 3 completed Ann Marie Newton RMA null, [facility] 12/10/2023 11:55:38 Influenza, high-dose, quadrivalent, PF 2 completed Ann Marie Newton RMA null, [facility] 12/10/2023 11:55:38 COVID-19, mRNA, LNP-S, bivalent, PF, 30 mcg/0.3 mL dose 2 completed Ann Marie Newton RMA null, [facility] 12/10/2023 11:55:38 Tdap 5 completed Ann Marie Newton, RMA null, [facility] 12/10/2023 11:55:38 Influenza, split virus, quadrivalent, PF 8 completed Ann Marie Marietta, RMA null, [facility] 12/10/2023 11:55:38 COVID-19, mRNA, LNP-S, PF, arline-sucrose, 30 mcg/0.3 mL 4 completed [facility] 15:57:08 Influenza, high-dose, trivalent, PF 4 completed [facility]/21/2024 15:57:08 COVID-19, mRNA, LNP-S, PF, 50 mcg/0.5 mL 3 completed [facility] 02/21/2024 15:56:44 RSV, bivalent, protein subunit RSVpreF, diluent reconstituted, 0.5 mL, PF 4 completed [facility] 02/21/2024 15:57:08 COVID-19, mRNA, LNP-S, PF, 100 mcg/0.5mL dose or 50 mcg/0.25mL dose 2 completed [facility] 12/10/2023 11:55:38 COVID-19, mRNA, LNP-S, PF, 100 mcg/0.5mL dose or 50 mcg/0.25mL dose 1 completed [facility] 12/10/2023 11:55:38 COVID-19, mRNA, LNP-S, PF, 100 mcg/0.5mL dose or 50 mcg/0.25mL dose 1 completed [facility] 12/10/2023 11:55:38 COVID-19, mRNA, LNP-S, PF, 100 mcg/0.5mL dose or 50 mcg/0.25mL dose 1 completed [facility] 12/10/2023 11:55:38 Influenza, high-dose, quadrivalent, PF 2 completed [facility] 12/10/2023 11:55:38 COVID-19, mRNA, LNP-S, bivalent, PF, 30 mcg/0.3 mL dose 2 completed JAQUELIN Carbajal null, [place] [facility] [place] [facility] 12/10/2023 11:55:38 pneumococcal polysaccharide PPV23 2 completed Not Available [facility] 04/22/2022 06:04:42 Influenza, high-dose, quadrivalent, PF 1 completed Not Available [facility] 04/22/2022 06:04:43 Pneumococcal conjugate PCV 13 1 completed Not Available Critical access hospital 04/22/2022 06:04:43 Past Encounters Encounter ID Performer Location Encounter Start Date Encounter Closed Date Diagnosis/Indication Diagnosis SNOMED-CT Code Diagnosis ICD10 Code Diagnosis Note [id number] Irma esparza MD [facility] [place] [facility] [address] [address] 09/03/2020 00:00:00 09/04/2020 17:26:29 [id number] Irma esparza MD [facility] [facility] [place] [address] [address] 12/05/2020 00:00:00 12/16/2020 17:06:27 [id number] Irma esparza MD [facility] [place] [facility] [address] [facility] [address] [address] 10/28/2021 00:00:00 10/28/2021 17:02:20 [id number] Irma esparza MD [facility] [place] [address] [address] 12/11/2021 00:00:00 12/11/2021 14:34:36 [id number] MD PIO Denny_[address] [address] 12/16/2021 00:00:00 12/16/2021 10:44:11 [id number] MD PIO [place] [address] [address] 01/27/2022 00:00:00 01/27/2022 10:26:25 [id number] Irma esparza MD [facility] [facility] [address] [facility] 15 [place] [address] 08/27/2022 14:04:18 08/27/2022 14:47:48 Screening - NAD 928253327 Z13.9 C-scope: Does not want to do the c-scope or the cologuard, she understand s the risks for not doing these tests Mammogram: 12/16/2020 : NegMammogr am: 03/31/2022 : Neg PAP/DEXA: Get this ordered Get yearly flu shotGet tdap if not doneUTD on COVID 19 vaccineGet PCV #13 and then #23Can do shingles vaccine RTC in 3 monthsDo labsER if worseShe did verbalize her understand ing of the above Hyperlipidemia 72029167 E78.5 On rosuvastat in 10mg daily, more diet and exercise is needed was taking this every other day will now take dailyGet labs Vitamin D deficiency 347 94539 E55.9 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 US liver: 10/07/2020 Needs to see hepatologi st Gastroesop hageal reflux disease without esophagitis 820723108 K21.9 On omeprazole , renewedTak e as needed EGD: 12/27/2020 : Dr Ford, gastritis Moderate r ecurrent major depression 59767035 F33.1 On sertraline 100mg daily, was taking this every other day, will now do 50mg daily 08/27/2022 Not suicidal or homicidalD eclines any psychiatry apts Ex-smoker 6964997 Z87.89 1 Does wellNo complaints Environmental allergy 42 9113312 T78.49XD On zyrtecDoes well Obesity 903614358 E66.9 Advised to diet and exercise Pain of ri ght shoulder joint 9929883851 6007187 M25.511 S/p fall and fracture 05/27/2021 , s/p ORIF Dr Fermin, next apt is in Nov 2021, is still unable to fully abduct or elevate her arm Prediabetes 043030262 R7 3.03 On metforminG et labs, see eye and foot Anemia 786449305 D64.9 Microcytic Get on ironNeeds to do C-scope! Is to see Dr Womakc on 12/23/2021 Pain of ri ght knee joint 0441789174 14466 M25.561 S/p fall in 05/24/2021 , feels that the R hip and R knee are now affected, refer to Dr Huynh or Dr Mathis Pruritic rash 26685885 L 28.2 Faint slightly excoriated rash was noted on the L lateral Kiah triamcinol one Screening for osteoporosis 577818873 Z13.820 Trigger fi nger of left hand 2373100841 1296366 M65.30 Left index finger, TTP noted at MCP joint, refer to Dr Torres [id number] Srinivas Huynh MD [facility] [place] [address] [place] [address] 10/22/2022 10:32:07 10/22/2022 12:07:53 Pain of left hand 3500422223 66489 M79.018 [id number] Irma esparza MD [facility] [place] [address] [facility], [facility] [address] [place] [address] 12/31/2022 13:50:54 12/31/2022 15:55:54 Screening - NAD 025074936 Z13.9 C-scope: Does not want to do the c-scope or the cologuard, she understand s the risks for not doing these tests Mammogram: 12/16/2020 : NegMammogr am: 03/31/2022 : Neg PAP/DEXA: Get this ordered Get yearly flu shotGet tdap if not doneUTD on COVID 19 vaccineUTD PCV #13/#23Can do shingles vaccineGet RSV vaccine RTC in 4 monthsDo labsER if worseShe did verbalize her understand ing of the above Hyperlipidemia 94250332 E78.5 On rosuvastat in 10mg daily, more diet and exercise is needed was taking this every other day will now take dailyGet labs Vitamin D deficiency 347 92538 E55.9 Steatotic liver disease 887256371 K76.0 US liver: 10/07/2020 Repeat US liverCMP: LFTs WNL, Alb 4.5 Gastroesop hageal reflux disease without esophagitis 187881649 K21.9 On omeprazole , renewedTak e as needed EGD: 12/27/2020 : Dr Ford, gastritis Moderate r ecurrent major depression 62102579 F33.1 On sertraline 100mg daily, was taking this every other day, will now do 50mg daily 08/27/2022 Not suicidal or homicidalD eclines any psychiatry apts Ex-smoker 2159394 Z87.89 1 Does wellNo complaints Environmental allergy 42 4646414 T78.49XD On zyrtecDoes well Obesity 879515599 E66.9 Advised to diet and exercise Pain of ri ght shoulder joint 2470705405 3639925 M25.511 S/p fall and fracture 05/27/2021 , s/p ORIF Dr Fermin, next apt is in Nov 2021, is still unable to fully abduct or elevate her arm Prediabetes 879818027 R7 3.03 On metforminG et labs, see eye and foot MD Anemia 760554160 D64.9 Microcytic Get on ironNeeds to do C-scope! Sees Dr Womack last OV 09/04/2022 Pain of ri ght knee joint 2386093109 13361 M25.561 S/p fall in 05/24/2021 , feels that the R hip and R knee are now affected, refer to Dr Huynh or Dr Mathis Pruritic rash 05163937 L 28.2 Faint slightly excoriated rash was noted on the L lateral Kiah triamcinol one Screening for osteoporosis 387706793 Z13.820 Trigger fi nger of left hand 1801717782 3009905 M65.30 Left index finger, TTP noted at MCP joint, refer to Dr Melissa MILLER 10/22/2022 Adult heal th examination 039313861 Z00.00 Screening for disorder 203966129 Z13.9 Follicular cysts of skin and subcutaneous tissue 412538184 L72.9 Small, red, slightly tender cyst, R mid axilla, no surroundin g redness, no induration or d/cGet on cephalexin and diflucan as she does get vaginitisN otify if not better, then may need to see G surgery [id number] Irma esparza MD [facility] [address] [facility] [place] [address] [place] [address] 09/30/2023 13:52:10 09/30/2023 14:56:32 Screening - NAD 719201064 Z13.9 C-scope: Does not want to do the c-scope or the cologuard 09/30/2023 , she understand s the risks for not doing these tests! Mammogram: 12/16/2020 : NegMammogr am: 03/31/2022 : NegMammogr am: 06/09/2023 : Neg PAP: See OBDEXA: 06/09/2023 : OP can do prolia Get yearly flu shotGet tdap if not doneUTD on COVID 19 vaccineUTD PCV #13/#23Can do shingles vaccineGet RSV vaccine RTC in 4 monthsDo labsER if worseShe did verbalize her understand ing of the above Hyperlipidemia 82015712 E78.5 On rosuvastat in 10mg daily, more diet and exercise is needed was taking this every other day will now take dailyGet labs Vitamin D deficiency 347 50608 E55.9 Steatotic liver disease 497326966 K76.0 US liver: 10/07/2020 Repeat US liverCMP: LFTs WNL, Alb 4.5 Gastroesop hageal reflux disease without esophagitis 939015895 K21.9 On omeprazole , renewedTak e as needed EGD: 12/27/2020 : Dr Ford, gastritis Moderate r ecurrent major depression 11238510 F33.1 On sertraline 100mg daily, was taking this every other day, will now do 50mg daily 08/27/2022 Not suicidal or homicidalD eclines any psychiatry apts Ex-smoker 5125999 Z87.89 1 Does wellNo complaints Environmental allergy 42 0217366 T78.49XD On zyrtecDoes well Obesity 546308017 E66.9 Advised to diet and exercise Pain of ri ght shoulder joint 4231111895 8630230 M25.511 S/p fall and fracture 05/27/2021 , s/p ORIF Dr Fermin Prediabetes 909319185 R7 3.03 Not taking metforminG et labs, see eye and foot Anemia 643263373 D64.9 CBC H/H: WNL 09/13/2023 Get on ironNeeds to do C-scope! Sees Dr Womack last OV 09/04/2022 Pain of ri ght knee joint 5334221250 79952 M25.561 S/p fall in 05/24/2021 , feels that the R hip and R knee are now affected, refer to Dr Huynh or Dr Mathis Pruritic rash 02112450 L 28.2 Faint slightly excoriated rash was noted on the L lateral Kiah triamcinol one Trigger fi nger of left hand 6964022292 8758116 M65.30 Left index finger, TTP noted at MCP joint, refer to Dr Melissa Macias PA 10/22/2022 Follicular cysts of skin and subcutaneous tissue 469707546 L72.9 Small, red, slightly tender cyst, R mid axilla, no surroundin g redness, no induration or d/cGet on cephalexin and diflucan as she does get vaginitisN otify if not better, then may need to see G surgery Thyroid st imulating hormone level above reference range 121752402 R94.6 09/22/2023 : TSH WNL 024: US thyroid: Heterogeno us, no nodules Osteoporosis 11767245 M8 1.0 Can do prolia Low back pain 194119678 M54.50 Xray LS Spine 09/06/2023 Get PT to eval and treat, if not better may need to see pain management [id number] Irma esparza MD [facility] [address] [place] [address] 10/11/2023 14:56:55 10/11/2023 15:44:51 Screening - NAD 454520535 Z13.9 C-scope: Does not want to do the c-scope or the cologuard 09/30/2023 , she understand s the risks for not doing these tests! Mammogram: 12/16/2020 : NegMammogr am: 03/31/2022 : NegMammogr am: 06/09/2023 : Neg PAP: See OBDEXA: 06/09/2023 : OP can do prolia Get yearly flu shotGet tdap if not doneUTD on COVID 19 vaccineUTD PCV #13/#23Can do shingles vaccineGet RSV vaccine RTC in 4 monthsDo labsER if worseShe did verbalize her understand ing of the above Osteoporosis 39468718 M8 1.0 Unable to do proliaGet on fosamax, all side effects explained to her Proteinuria 38719613 R80 .9 Does not want to see Dr Skyler EMERY, will see Dr Brizuela [id number] Irma esparza MD [facility] [address] [place] [address] 01/12/2024 14:56:17 01/12/2024 16:09:40 Adult health examination 829095098 Z00.00 Screening for disorder 783933027 Z13.9 Screening - NAD 43594719 3 Z13.9 C-scope: Does not want to do the c-scope or the cologuard 09/30/2023 , she understand s the risks for not doing these tests! Mammogram: 12/16/2020 : NegMammogr am: 03/31/2022 : NegMammogr am: 06/09/2023 : Neg PAP: See OBDEXA: 06/09/2023 : OP on fosamax Get yearly flu shotGet tdap if not doneUTD on COVID 19 vaccineUTD PCV #13/#23Can do shingles vaccineGet RSV vaccine RTC in 3 monthsDo labsER if worseShe did verbalize her understand ing of the above Osteoporosis 30247221 M8 1.0 Unable to do proliaOn fosamax, all side effects explained to her Proteinuria 63278642 R80 .9 Does not want to see Dr Skyler EMERY, will see Dr Brizuela Hyperlipidemia 60115348 E78.5 On rosuvastat in 10mg daily, more diet and exerciseGe t labs Vitamin D deficiency 347 47659 E55.9 Steatotic liver disease 321234240 K76.0 US liver: 10/07/2020 Repeat US liverCMP: LFTs WNL, Alb 4.5 Gastroesop hageal reflux disease without esophagitis 321958780 K21.9 On omeprazole , renewedTak e as needed EGD: 12/27/2020 : Dr Ford, gastritis Moderate r ecurrent major depression 15300903 F33.1 On sertraline 100mg daily, was taking this every other day, will now do 50mg daily 08/27/2022 Not suicidal or homicidalD eclines any psychiatry apts Ex-smoker 7960655 Z87.89 1 Does wellNo complaints Environmental allergy 42 2602784 T78.49XD On zyrtecDoes well Obesity 423858079 E66.9 Advised to diet and exercise Pain of ri ght shoulder joint 1583617816 6890168 M25.511 S/p fall and fracture 05/27/2021 , s/p ORIF Dr Femrin Prediabetes 039373157 R7 3.03 Not taking metforminG et labs, see eye and foot MD Anemia 819888402 D64.9 CBC H/H: WNL 09/13/2023 Get on ironNeeds to do C-scope! Sees Dr Womack last OV 09/04/2022 Pain of ri ght knee joint 2955960039 25120 M25.561 S/p fall in 05/24/2021 , feels that the R hip and R knee are now affected, refer to Dr Huynh or Dr Mathis OV 01/12/2024 : Does well now Pruritic rash 08064287 L 28.2 Faint slightly excoriated rash was noted on the L lateral Kiah triamcinol one Trigger fi nger of left hand 0690044265 2295512 M65.30 Left index finger, TTP noted at MCP joint, refer to Dr Melissa Macias PA 10/22/2022 Follicular cysts of skin and subcutaneous tissue 547697973 L72.9 Small, red, slightly tender cyst, R mid axilla, no surroundin g redness, no induration or d/cGet on cephalexin and diflucan as she does get vaginitisN otify if not better, then may need to see G surgery OV 01/12/2024 : Does well now Thyroid st imulating hormone level above reference range 623317636 R94.6 09/22/2023 : TSH WNL 024: US thyroid: Heterogeno us, no nodules Low back pain 778243930 M54.50 Xray LS Spine 09/06/2023 PT to eval and treat, if not better may need to see pain management [id number] Irma esparza MD [facility] [address] [facility] [address] [place] [address] 07/12/2024 13:50:35 07/12/2024 14:29:25 Screening - NAD 804651286 Z13.9 C-scope: Does not want to do the c-scope or the cologuard 09/30/2023 , she understand s the risks for not doing these tests! Mammogram: 12/16/2020 : NegMammogr am: 03/31/2022 : NegMammogr am: 06/09/2023 : Neg PAP: See OB DEXA: 06/09/2023 : OP on fosamax Get yearly flu shotGet tdap if not doneUTD on COVID 19 vaccineUTD PCV #13/#23Can do shingles vaccineGet RSV vaccine RTC in 3 monthsDo labsER if worseShe did verbalize her understand ing of the above Osteoporosis 48220231 M8 1.0 Unable to do proliaOn fosamax, all side effects explained to her Proteinuria 49251342 R80 .[address] Turcios further apts as per history Hyperlipidemia 64289434 E78.5 On rosuvastat in 10mg daily, more diet and exerciseGe t labs Vitamin D deficiency 347 03369 E55.9 Steatotic liver disease 007098463 K76.0 US liver: 10/07/2020 Repeat US liverCMP: LFTs WNL, Alb 4.5 Gastroesop hageal reflux disease without esophagitis 769774886 K21.9 On omeprazole , renewedTak e as needed EGD: 12/27/2020 : Dr Ford, gastritis Moderate r ecurrent major depression 28645832 F33.1 On sertraline 50mg daily Not suicidal or homicidalD eclines any psychiatry apts Ex-smoker 9436177 Z87.89 1 Does wellNo complaints Environmental allergy 42 8391036 T78.49XD On zyrtecDoes well Obesity 708746632 E66.9 Advised to diet and exercise Pain of ri ght shoulder joint 2387591065 3312729 M25.511 S/p fall and fracture 05/27/2021 , s/p ORIF Dr Fermin Prediabetes 969706657 R7 3.03 Not taking metforminG et labs, see eye and foot MD Anemia 945404897 D64.9 CBC H/H: WNL 09/13/2023 Get on ironNeeds to do C-scope! Sees Dr Womack last OV 09/04/2022 Pain of ri ght knee joint 9399518622 81262 M25.561 S/p fall in 05/24/2021 , feels that the R hip and R knee are now affected, refer to Dr Huynh or Dr Mathis OV 01/12/2024 : Does well now Pruritic rash 72236062 L 28.2 Faint slightly excoriated rash was noted on the L lateral Kiah triamcinol one Trigger fi nger of left hand 4397690755 5309153 M65.30 Left index finger, TTP noted at MCP joint, refer to Dr Melissa Macias PA 10/22/2022 Follicular cysts of skin and subcutaneous tissue 152809445 L72.9 Small, red, slightly tender cyst, R mid axilla, no surroundin g redness, no induration or d/cGet on cephalexin and diflucan as she does get vaginitisN otify if not better, then may need to see G surgery OV 01/12/2024 : Does well now Thyroid st imulating hormone level above reference range 136266091 R94.6 09/22/2023 : TSH WNL0805/2 024: US thyroid: Heterogeno us, no nodules Low back pain 765603111 M54.50 Xray LS Spine 09/06/2023 PT to eval and treat, if not better may need to see pain management Screening mammography 24 671337 Z12.31 Well woman health examination 073963375 Z01.419 Health Concerns Section Related Observation LastModified by Organization Detai ls LastModified Time None Recorded Concern Status LastModified by Organization Details LastModified Time None Recorded Advance Directives Directive N: Payers Insurance Date Sequence Insurance Name Policy Number Policy Quick Covered Member ID Quick Member ID Guarantor Name 09/12/2024 1 [place] René Childers [id number] René Childers 09/12/2024 2 [employer] (MEDICARE SUPPLEMENT) René Childers [id number] René Childers Notes Date Note Type Note Provider Name and Address Organization Details Recorded Time 12/31/2022 text/html OV 09/03/2020;He re to establish carePast Hx:HLDDepressionEx smokerCTR bilReviewed social family and surgical historyShe feels wellNeeds to do labsOV 12/05/2020:Here for her routine aptShe is doing wellShe did do the labsOV 10/28/2021:Here for her f/u apt and MWV, she is doing well, she has no recent labsS/p R shoulder fracture and s/p ORIF done at [facility] by Dr Shell 12/11/2021:ACV:Her e with a c/o rash TIA arm, also has noted some R knee pain, no injury, sharpWants to discuss her labs OV 08/27/2022: Here for her f/u apt, does well, she did do the labs on 08/19/2022, has noted trigger finger on the L IF, and some pain in the MCP joint also OV 12/31/2022: Here for her routine apt, she is c/o R axilla lumps, no pain, no redness, otherwise is doing well today, she did do the labs on 12/21/2022 Irma Harris MD [address] [place] [address], [facility] [address], [place], [address], [place] [facility] [employer] 12/31/2022 16:36:26 09/30/2023 text/html OV 09/03/2020;He re to establish carePast Hx:HLDDepressionEx smokerCTR bilReviewed social family and surgical historyShe feels wellNeeds to do labsOV 12/05/2020:Here for her routine aptShe is doing wellShe did do the labsOV 10/28/2021:Here for her f/u apt and MWV, she is doing well, she has no recent labsS/p R shoulder fracture and s/p ORIF done at [facility] by Dr Shell 12/11/2021:ACV:Her e with a c/o rash TIA arm, also has noted some R knee pain, no injury, sharpWants to discuss her labs OV 08/27/2022: Here for her f/u apt, does well, she did do the labs on 08/19/2022, has noted trigger finger on the L IF, and some pain in the MCP joint also OV 12/31/2022: Here for her routine apt, she is c/o R axilla lumps, no pain, no redness, otherwise is doing well today, she did do the labs on 12/21/2022 OV 09/30/2023: Here for her routine apt, she does well, she did do the labs on 09/22/2023, she did see for LBP and R hip pain, today still has R sided LBP, radiates to the R hip area, no N/T or weakness in the legs, no loss of bowel or bladder control Irma Harris MD [address] [facility], [address], [place], [address], [place] - [facility] [employer] 09/30/2023 14:39:11 10/11/2023 text/html OV 09/03/2020;He re to establish carePast Hx:HLDDepressionEx smokerCTR bilReviewed social family and surgical historyShe feels wellNeeds to do labsOV 12/05/2020:Here for her routine aptShe is doing wellShe did do the labsOV 10/28/2021:Here for her f/u apt and MWV, she is doing well, she has no recent labsS/p R shoulder fracture and s/p ORIF done at [facility] by Dr Shell 12/11/2021:ACV:Her e with a c/o rash TIA arm, also has noted some R knee pain, no injury, sharpWants to discuss her labs OV 08/27/2022: Here for her f/u apt, does well, she did do the labs on 08/19/2022, has noted trigger finger on the L IF, and some pain in the MCP joint also OV 12/31/2022: Here for her routine apt, she is c/o R axilla lumps, no pain, no redness, otherwise is doing well today, she did do the labs on 12/21/2022 OV 09/30/2023: Here for her routine apt, she does well, she did do the labs on 09/22/2023, she did see UC for LBP and R hip pain, today still has R sided LBP, radiates to the R hip area, no N/T or weakness in the legs, no loss of bowel or bladder control OV 10/11/2023: Here to discuss her use of fosamax as she cannot get on prolia, also wants to get a new referral to nephrology Irma Harris MD [address] [place] [address], [facility] [address], [place], [address], [place] - [facility] 10/11/2023 16:25:10 01/12/2024 text/html OV 09/03/2020;He re to establish carePast Hx:HLDDepressionEx smokerCTR bilReviewed social family and surgical historyShe feels wellNeeds to do labsOV 12/05/2020:Here for her routine aptShe is doing wellShe did do the labsOV 10/28/2021:Here for her f/u apt and MWV, she is doing well, she has no recent labsS/p R shoulder fracture and s/p ORIF done at [facility] by Dr Shell 12/11/2021:ACV:Her e with a c/o rash TIA arm, also has noted some R knee pain, no injury, sharpWants to discuss her labs OV 08/27/2022: Here for her f/u apt, does well, she did do the labs on 08/19/2022, has noted trigger finger on the L IF, and some pain in the MCP joint also OV 12/31/2022: Here for her routine apt, she is c/o R axilla lumps, no pain, no redness, otherwise is doing well today, she did do the labs on 12/21/2022 OV 09/30/2023: Here for her routine apt, she does well, she did do the labs on 09/22/2023, she did see UC for LBP and R hip pain, today still has R sided LBP, radiates to the R hip area, no N/T or weakness in the legs, no loss of bowel or bladder control OV 10/11/2023: Here to discuss her use of fosamax as she cannot get on prolia, also wants to get a new referral to nephrology OV 01/12/2024: Here for her f/u apt, she is doing well today, she is here for her MWV also and she is here with her sister Irma Harris MD [address] [facility], [address], [place], [address], [facility] [employer] 01/12/2024 19:35:59 07/12/2024 text/html OV 09/03/2020;He re to establish carePast Hx:HLDDepressionEx smokerCTR bilReviewed social family and surgical historyShe feels wellNeeds to do labsOV 12/05/2020:Here for her routine aptShe is doing wellShe did do the labsOV 10/28/2021:Here for her f/u apt and MWV, she is doing well, she has no recent labsS/p R shoulder fracture and s/p ORIF done at [facility] by Dr Shell 12/11/2021:ACV:Her e with a c/o rash TIA arm, also has noted some R knee pain, no injury, sharpWants to discuss her labs OV 08/27/2022: Here for her f/u apt, does well, she did do the labs on 08/19/2022, has noted trigger finger on the L IF, and some pain in the MCP joint also OV 12/31/2022: Here for her routine apt, she is c/o R axilla lumps, no pain, no redness, otherwise is doing well today, she did do the labs on 12/21/2022 OV 09/30/2023: Here for her routine apt, she does well, she did do the labs on 09/22/2023, she did see UC for LBP and R hip pain, today still has R sided LBP, radiates to the R hip area, no N/T or weakness in the legs, no loss of bowel or bladder control OV 10/11/2023: Here to discuss her use of fosamax as she cannot get on prolia, also wants to get a new referral to nephrology OV 01/12/2024: Here for her f/u apt, she is doing well today, she is here for her MWV also and she is here with her sister OV 07/12/2024: Here for her f/u apt, she feels well today, she did do the labs Irma Harris MD [address] [facility], [facility] [address], [place], [address], [place] [facility] [employer] 07/12/2024 14:27:58 OBGyn Episode No OBEpisode recorded.
--- OUTSIDE RECORDS SUMMARY | 2024-09-12 21:07 | XMS_ITS | Referral Summary ---
Author Organization [facility] Address formerly [facility] [place] [address] Care Team Providers Care Api Product Manager Name Role Phone Esperanza Harris MD Primary Care Provide r Allergies Active Allergy Reactions Criticality Noted Date Comments Codeine Nausea & Vomiting Low 05/27/2021 Hydrocodone-Acetaminophen Other (See comments) Low 06/12/2021 Metronidazole Vomiting Medium 03/26/2015 Medications rosuvastatin (CRESTOR) 10 mg tablet Take 10 mg by mouth daily Active sertraline (ZOLOFT) 100 mg tablet Take 100 mg by mouth every other day Active cetirizine (ZyrTEC) 10 mg tablet Take 10 mg by mouth daily Active acetaminophen 500 mg capsuleIndication s:Pain Take 2 capsules (1,000 mg total) by mouth every 6 (six) hours 30 tablet 2 Active cyclobenzaprine (FLEXERIL) 5 mg tabletIndications :Muscle Spasm Take 1 tablet (5 mg total) by mouth 3 (three) times a day as needed for muscle spasms 30 tablet 2 Active polyethylene glycol (MIRALAX) 17 gram packetIndications :constipation Take 1 packet (17 g total) by mouth daily 30 packet 2 Active senna-docusate (PERICOLACE) 8.6-50 mg Take 1 tablet by mouth 2 (two) times a day 30 tablet 2 Active oxyCODONE (ROXICODONE) 5 mg immediate release tabletIndications :Pain Take 1 tablet (5 mg total) by mouth every 4 (four) hours as needed for pain 15 tablet 2 Active alendronate (FOSAMAX) 70 mg tablet Take 1 tablet every week by oral route in the morning for 30 days. Active amoxicillin-clavu lanate (AUGMENTIN) 875-125 mg per tablet Take 1 tablet every 12 hours by oral route as directed for 10 days. Active calcium carbonate-vitamin D3 (CALTRATE 600 + D) 1500 mg (600 mg elemental) -400 units per tablet Take 1 tablet twice a day by oral route. 7 Active influenza quadrivalent [id number] (FLUZONE) 60 mcg (15 mcg x 4)/0.5 mL syringe Active ibuprofen (ADVIL,MOTRIN) 800 mg tablet Take 1 tablet by mouth 3 (three) times a day 1 Active linaCLOtide (LINZESS) 145 mcg capsule Active nitrofurantoin monohydrate (MACROBID) 100 mg capsule Take 100 mg by mouth 7 Active amoxicillin (AMOXIL) 875 mg tablet TAKE 1 TABLET BY MOUTH TWICE A DAY UNTIL GONE 2 Active omeprazole (PriLOSEC) 20 mg capsule omeprazole 20 mg capsule,delaye d release 1 Active raNITIdine (ZANTAC) 150 mg tablet Take 1 tablet twice a day by oral route before meals for 30 days. 7 Active sulfamethoxazole- trimethoprim (BACTRIM DS) 800-160 mg per tablet Take 1 tablet twice a day by oral route for 10 days. Active traMADoL (ULTRAM) 50 mg tablet Take 50 mg by mouth 2 Active triamcinolone (KENALOG) 0.1 % ointment APPLY A THIN LAYER TO THE AFFECTED AREA(S) BY TOPICAL ROUTE 2 TIMES PER DAY Active Active Problems Problem Noted Date Diagnosed Date Acute urinary tract infection 06/12/2021 Anxiety 06/12/2021 Bacterial vaginosis 06/12/2021 Candidiasis of skin 06/12/2021 Depressive disorder 06/12/2021 Dyslipidemia 06/12/2021 Eczema 06/12/2021 Excess or deficiency of vitamin D 06/12/2021 Insomnia 06/12/2021 Psoriasis 06/12/2021 Closed displaced comminuted fracture of shaft of right humerus, initial encounter 05/25/2021 Fall from slip, trip, or stumble, initial encoun ter 05/25/2021 Acute traumatic pain 05/25/2021 Steatosis of liver 11/02/2020 Colitis 12/06/2019 Hyperlipidemia 12/06/2019 Palpitations 12/06/2019 Primary hypertension 12/06/2019 Sinus tachycardia 12/06/2019 Allergic rhinitis 09/20/2019 Encounter for screening for malignant neoplasm o f breast 12/28/2018 Vulvovaginitis 12/20/2018 Cellulitis of right axilla 12/06/2018 Gastroesophageal reflux disease 12/06/2018 Urticaria 12/06/2018 Cellulitis of groin 07/22/2018 Fracture of fibula 12/01/2017 Hip pain 06/11/2017 Osteopenia 06/11/2017 Recurrent urinary tract infection 04/12/2017 Dysuria 01/24/2017 Obese 01/24/2017 Social History Tobacco Use Types Packs/Day Years Used Date Smoking Tobacco: Never Smokeless Tobacco: Never Comments No Sex and Gender Information Value Date Recorded Sex Assigned at Not on file 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[employer] Gender Identity Not on file Sexual Orientation Not on file Last Filed Vital Signs Vital Sign Reading Time Taken Comments Blood Pressure 121/52 05/29/2021 11:00 AM CDT Pulse 91 05/29/2021 11:00 AM CDT Temperature 36.8 C (98.2 F) 05/29/2021 8:00 AM CDT Respiratory Rate 18 05/29/2021 8:00 AM CDT Oxygen Saturation 99% 05/29/2021 11:00 AM CDT Inhaled Oxygen Concentration - - Weight 104.3 kg (230 lb) 05/25/2021 7:40 AM CDT Height 154.9 cm (5' 1) 05/25/2021 7:40 AM CDT Body Mass Index 43.46 05/25/2021 7:40 AM CDT Plan of Treatment Not on file Medical Devices Implanted Type Area Cigar Head Puncher Device Identifier Shelf Expiration Date Model / Serial / Lot Synthes 3.5mm 2.9mm 45mm Self Tap Lock Stardrive Conical Head T15 Full 212.119 - [id number] Implanted:Qty: 1 on 05/27/2021 at [facility] Synthes I 212.119 / / Synthes 3.5mm 2.9mm 30mm Self Tap Lock Stardrive Conical Head T15 Full 212.111 - [id number] Implanted:Qty: 1 on 05/27/2021 at [facility] Synthes I 212.111 / / Synthes 3.5mm 2.9mm 38mm Self Tap Lock St[employer]rive Conical Head T15 Full 212.116 - [id number] Implanted:Qty: 1 on 05/27/2021 at [facility] Synthes I 212.116 / / Synthes 3.5mm 2.9mm 34mm Self Tap Lock Stardrive Conical Head Pelvis T15 212.113 - [id number] Implanted:Qty: 1 on 05/27/2021 at [facility] Synthes I 212.113 / / Synthes 3.5mm 2.9mm 48mm Self Tap Lock Fix Angle Low Profile Pelvis Full 212.120 - [id number] Implanted:Qty: 2 on 05/27/2021 at [facility] Synthes I 212.120 / / Synthes 3.5mm 2.9mm 44mm Self Tap Lock Stardrive Conical Head T15 Full 212.134 - [id number] Implanted:Qty: 1 on 05/27/2021 at [facility] Synthes I 212.134 / / Synthes 3.5mm 2.9mm 46mm Self Tap Lock Stardrive Conical Head T15 Full 212.136 - [id number] Implanted:Qty: 1 on 05/27/2021 at [facility] Synthes I 212.136 / / Synthes 2.7mm 5mm 32mm 2.5mm Self Tap Spherical Head Small Hexagonal 202.832 - [id number] Implanted:Qty: 1 on 05/27/2021 at [facility] Synthes I 202.832 / / Synthes Lcp Combi 98x10.1x3.5mm 7 Hole Reconstruction Plate Bone 245.071 - [id number] Implanted:Qty: 1 on 05/27/2021 at [facility] Synthes I 245.071 / / Synthes 204.818 3.5mm 6mm 18mm 2.5mm Self Tap Small Hexagonal Socket Low Profile - [id number] Implanted:Qty: 1 on 05/27/2021 at [facility] Synthes I 204.818 / / Synthes 204.820 3.5mm 6mm 20mm 2.5mm Self Tap Small Hexagonal Socket Low Profile - [id number] Implanted:Qty: 1 on 05/27/2021 at [facility] Synthes I 204.820 / / Synthes 3.5mm 2.9mm 10mm Self Tap Lock Stardrive Conical Head T15 Full 212.101 - [id number] Implanted:Qty: 2 on 05/27/2021 at [facility] Synthes I 212.101 / / Synthes Lcp Combi Philos Long 857o66x2.7mm 8 Hole Shaft Lock Compression 241.921 - [id number] Implanted:Qty: 1 on 05/27/2021 at [facility] Synthes I 241.921 / / Synthes 204.826 3.5mm 6mm 26mm 2.5mm Self Tap Small Hexagonal Socket Low Profile - [id number] Implanted:Qty: 3 on 05/27/2021 at [facility] Synthes I 204.826 / / Synthes 3.5mm 2.9mm 26mm Self Tap Lock Stardrive Conical Head T15 Full 212.109 - [id number] Implanted:Qty: 1 on 05/27/2021 at [facility] Synthes I 212.109 / / Explanted Type Area Cigar Head Puncher Device Identifier Shelf Expiration Date Model / Serial / Lot Synthes 202.822 2.7mm 5mm 22mm 2.5mm Self Tap Spherical Head Small Hexagonal - [id number] Explanted:Qty: 1 on 05/27/2021 at [facility] Synthes I 202.822 / / [employer] [id number] Lillian .062in 9in Trocar [employer] - [id number] Explanted:Qty: 1 on 05/27/2021 at [facility] [employer] [id number] / / Insurance MEDICARE AETNA SENIOR SUPPLEMENT MEDICARE AETNA SENIOR SUPPLEMENT MEDICARE AETNA SENIOR SUPPLEMENT Advance Directives For more information, please contact: [phone] * Full Code (Latest Code Status on File) Date Activated Date Inactivated Comments 05/25/2021 7:42 AM 05/29/2021 5:56 PM Care Teams Api Product Manager Relationship Specialty Start Date End Date Esperanza Harris MD [address] [place] [address] PCP - General Internal Medicine 06/12/21
--- OUTSIDE RECORDS SUMMARY | 2024-09-12 21:07 | XMS_ITS | Clinical Summary ---
Author Organization [facility] Address [address], [place] [address] Phone Care Team Providers Care Oracle Reports Developer Name Role Phone Irma Harris MD Primary Care Provider [phone] Allergies Active Allergy Reactions Criticality Noted Date Comments Metronidazole Vomiting 11/01/2023 Medications alendronate (FOSAMAX) 70 MG tablet Take 70 mg by mouth every 7 (seven) days Take in the morning with a full glass of water, on an empty stomach, and do not take anything else by mouth or lie down for the next 30 min. Active Multiple Vitamins-Minera ls (MULTIPLE VITAMINS/WOMENS PO) Take by mouth Active rosuvastatin (CRESTOR) 10 MG tablet Take 10 mg by mouth 1 (one) time each day Active sertraline (ZOLOFT) 50 MG tablet Take 50 mg by mouth 1 (one) time each day Active cetirizine (ZyrTEC) 10 MG tablet Take 10 mg by mouth 1 (one) time each day Active Vitamin E 180 MG (400 UNIT) capsule Take by mouth Active Calcium Carb-Cholecalci ferol (CALCIUM + D3 PO) Take by mouth Active ferrous sulfate 325 (65 Fe) MG tablet Take 325 mg by mouth 1 (one) time each day with breakfast Active Ascorbic Acid (vitamin C) 1000 MG tablet Take 1,000 mg by mouth 1 (one) time each day Active b complex vitamins capsule Take 1 capsule by mouth 1 (one) time each day Active Active Problems Problem Noted Date Diagnosed Date Pure hypercholesterolemia 03/02/2024 Elevated blood pressure reading 03/02/2024 Abnormal finding in urine 11/02/2023 Resolved Problems Problem Noted Date Diagnosed Date Resolved Date Vitamin D deficiency 11/01/2023 025 Hyperlipidemia 11/01/2023 03/02/2024 Chronic kidney disease 11/01/202303/02 Proteinuria 11/01/2023 03/02/2024 Prediabetes 11/01/2023 03/02/2024 Hyperparathyroidism 11/01/2023 11/02/19 24 Family History Medical History Relation Comments Cerebrovascular accident Father Cerebrovascular accident Mother Leukemia Sister Relation Status Comments Father Mother Sister Social History Tobacco Use Types Packs/Day Years Used Date Smoking Tobacco: Former Cigarettes Smokeless Tobacco: Never Tobacco Cessation:Counseling Given: Not Answered Alcohol Use Standard Drinks/Week Comments Never 0 (1 standard drink = 0.6 oz pur e alcohol) Comments Unknown Sex and Gender Information Value Date Recorded Sex Assigned at Not on file Legal Sex Female 2:15 PM MDT Gender Identity Not on file Sexual Orientation Not on file Last Filed Vital Signs Vital Sign Reading Time Taken Comments Blood Pressure 159/107 11/02/2023 11:30 AM CDT Pulse 95 11/02/2023 11:30 AM CDT Temperature - - Respiratory Rate - - Oxygen Saturation - - Inhaled Oxygen Concentration - - Weight 105 kg (232 lb) 11/02/2023 10:55 AM CDT Height 154.9 cm (5' 1) 11/02/2023 10:55 AM CDT Body Mass Index 43.84 11/02/2023 10:55 AM CDT Plan of Treatment Health Maintenance Due Date Last Done Comments Pneumococcal PPSV23/PCV13 65 + Years / High and Highest Risk (2 of 4 - PPSV23, PCV20, or PCV21) 10/29/2020 09/03/2020 COVID-19 Vaccine (5 - 2023-2 5 season) 2023 08/01/2021, 01/01/2021, 05/17/2020, Additional history exists Influenza Vaccine (#1) 2024 01/02/2018 Insurance MEDICARE [employer] PM INTERFACED INSURANCE [address] [place] [address] [address] Care Teams Oracle Reports Developer Relationship Specialty Start Date End Date Irma Harris MD [facility] [place] [id number] PCP - General Family Medicine 11/02/23
--- OUTSIDE RECORDS SUMMARY | 2024-09-12 21:07 | XMS_ITS | Patient Health Record ---
Author Organization [facility] Address [address] [place] [address] Care Team Providers Care Fire Ranger Name Role Phone Anibal Hollandjit Unavailable [phone] Reason For Referral No Information Problems Problem Type SNOMED Code ICD Code Onset Dates Problem Status W/U Status Risk Notes Problem Obesity (665463151) Obesity, unspecified (E66.9) Active confirmed Problem Hyperlipidemia (03333774) Hyperlipidemia, unspecified (E78.5) Active confirmed Problem Chronic kidney disease stage 2 (027055801) Chronic kidney disease, stage 2 (mild) (N18.2) Active confirmed Problem Essential hypertension (47159778) Essential hypertension (I10) Active confirmed Encounters Encounter Location Date Provider Diagnosis [facility] [address] [facility] [address] [place] [address] 10/01/2023 Nils Holland Chronic kidney disease, stage [...]
--- OUTSIDE RECORDS SUMMARY | 2024-09-12 21:07 | XMS_ITS | Clinical Summary ---
Author Organization [facility] Address [address] [place] [address] Care Team Providers Care Targeteer Name Role Phone Irma Harris MD Primary Care Provider Allergies No known active allergies Medications sertraline (ZOLOFT) 100 mg tablet Take 100 mg by mouth daily. Active rosuvastatin 10 mg Capsule, Sprinkle Take by mouth daily. Active cetirizine (ZyrTEC) 10 mg tablet Take 10 mg by mouth daily. Active ferrous sulfate 325 mg (65 mg iron) tablet Take 325 mg by mouth daily. Active metFORMIN (GLUCOPHAGE) 500 mg tablet Take 500 mg by mouth 2 times daily. 11/24/2021 Active Active Problems Problem Noted Date Diagnosed Date Acneiform rash 12/23/2021 Iron deficiency anemia 12/23/2021 Family History Relation Name Status Comments Father Mother Sister Social History Tobacco Use Types Packs/Day Years Used Date Smoking Tobacco: Never Smokeless Tobacco: Never Tobacco Cessation:Counseling Given: Not Answered Comments Unknown Sex and Gender Information Value Date Recorded Sex Assigned at Not on file Legal Sex Female 2:19 PM CDT Gender Identity Not on file Sexual Orientation Not on file Last Filed Vital Signs Vital Sign Reading Time Taken Comments Blood Pressure 138/84 09/03/2022 1:55 PM CDT Pulse 94 09/03/2022 1:55 PM CDT Temperature 36.1 C (96.9 F) 09/03/2022 1:55 PM CDT Respiratory Rate 10 09/03/2022 1:55 PM CDT Oxygen Saturation 96% 09/03/2022 1:55 PM CDT Inhaled Oxygen Concentration - - Weight 102.5 kg (226 lb) 09/03/2022 1:55 PM CDT Height 154.9 cm (5' 1) 12/23/2021 3:04 PM CDT Body Mass Index 42.7 12/23/2021 3:04 PM CDT Plan of Treatment Health Maintenance Due Date Last Done Comments DTAP/TDAP/TD VACCINES (1 - Tdap) 1973 COLORECTAL SCREENING 10/03/1999 Colorectal Cancer Screening 10/03/1999 FIT-DNA Q 3 years 10/03/1999 FIT/FOBT Q 1 year 10/03/1999 Flex Sig/CT Colonography Q 5 years 10/03/1999 ZOSTER VACCINE (1 of 2) 2004 BREAST CANCER SCREENING 04/01/2023 04/01/19 23, 04/01/2022, 03/31/2022, Additional history exists INFLUENZA VACCINE (#1) 2024 12/03/2021, 2020 OSTEOPOROSIS SCREENING 12/16/2025 12/16/2020 RSV VACCINE (60+ or ) (1 - 1-dose 75+ series) 2029 PNEUMOCOCCAL VACCINE 50+ YEARS Completed 11/13/2021 , 09/03/2020 Insurance MEDICARE PART A AND B AETNA MEDICARE SUPP AESSI Care Teams Targeteer Relationship Specialty Start Date End Date Irma Harris MD PCP - General Internal Medicine 12/23/21
--- OUTSIDE RECORDS SUMMARY | 2024-09-12 21:07 | XMS_ITS | Clinical Summary ---
Author Organization [facility] Address [facility] [place] [address] Care Team Providers Care Field Naturalist Name Role Phone Esperanza Harris MD Primary [...] by oral route. 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 Gender Identity Not on file Sexual Orientation Not on file Obstetrics History Last Filed Vital Signs Vital Sign Reading [...] 05/25/2021 7:40 AM CDT Plan of Treatment Health Maintenance Due Date Last Done Comments Breast Cancer Screening-Mammogram 1955 Colon Cancer Screening-Colonoscopy 1955 Depression Screening 1955 Hepatitis C Screening 1955 Osteoporosis Screening-Bone Density Scan 1955 Hepatitis B Screening 1972 Zoster Vaccine (1 of 2) 2004 Well Visit 65+ 10/03/2019 Fall Risk Assessment 05/29/2022 05/29/2021 Covid-19 Vaccine (2023-2 5 season) 2023 08/01/2021, 01/01/2021, 05/17/2020, Additional history exists Influenza Vaccine (#1) 2024 , 11/30/2019, 12/29/2018, Additional history exists DTaP/Tdap/Td Vaccine (2 - Td or Tdap) 10/30/2024 10/30/2014 Pneumococcal vaccine 65+ Completed 11/13/2021, 08/22 Medical Devices Implanted Type Area Rag Cutting Machine Feeder Device Identifier Shelf Expiration Date Model / Serial / Lot Synthes 3.5mm 2.9mm 45mm Self Tap Lock Stardrive Conical Head T15 Full 212.119 - [id number] Implanted:Qty: 1 on 05/27/2021 at [facility] Synthes I 212.119 / / Synthes 3.5mm 2.9mm 30mm Self Tap Lock Stardrive Conical Head T15 Full 212.111 - [id number] Implanted:Qty: 1 on 05/27/2021 at [facility] Synthes I 212.111 / / Synthes 3.5mm 2.9mm 38mm Self Tap Lock Stardrive Conical Head T15 Full 212.116 - [id number] Implanted:Qty: 1 on 05/27/2021 at [facility] Synthes I 212.116 / / Synthes 3.5mm 2.9mm 34mm Self Tap Lock Stardrive Conical Head Pelvis T15 212.113 - [id number] Implanted:Qty: 1 on 05/27/2021 at [facility] Synthes I 212.113 / / Synthes 3.5mm 2.9mm 48mm Self Tap Lock Fix Angle Low Profile Pelvis Full 212.120 - [id number] Implanted:Qty: 2 on 05/27/2021 at [facility] Synthes I 212.120 / / Synthes 3.5mm 2.9mm 44mm Self Tap Lock Stardrive Conical Head T15 Full 212.134 - [id number] Implanted:Qty: 1 on 05/27/2021 at [facility] Synthes I 212.134 / / Synthes 3.5mm 2.9mm 46mm Self Tap Lock Stardrive Conical Head T15 Full 212.136 - [id number] Implanted:Qty: 1 on 05/27/2021 at [facility] Synthes I 212.136 / / Synthes 2.7mm 5mm 32mm 2.5mm Self Tap Spherical Head Small Hexagonal 202.832 - [id number] Implanted:Qty: 1 on 05/27/2021 at [facility] Synthes I 202.832 / / Synthes Lcp Combi 98x10.1x3.5mm 7 Hole Reconstruction Plate Bone 245.071 - [id number] Implanted:Qty: 1 on 05/27/2021 at [facility] Synthes I 245.071 / / Synthes 204.818 3.5mm 6mm 18mm 2.5mm Self Tap Small Hexagonal Socket Low Profile - [id number] Implanted:Qty: 1 on 05/27/2021 at [facility] Synthes I 204.818 / / Synthes 204.820 3.5mm 6mm 20mm 2.5mm Self Tap Small Hexagonal Socket Low Profile - [id number] Implanted:Qty: 1 on 05/27/2021 at [facility] Synthes I 204.820 / / Synthes 3.5mm 2.9mm 10mm Self Tap Lock Stardrive Conical Head T15 Full 212.101 - [id number] Implanted:Qty: 2 on 05/27/2021 at [facility] Synthes I 212.101 / / Synthes Lcp Combi Philos Long 482f27b6.7mm 8 Hole Shaft Lock Compression 241.921 - [id number] Implanted:Qty: 1 on 05/27/2021 at [facility] Synthes I 241.921 / / Synthes 204.826 3.5mm 6mm 26mm 2.5mm Self Tap Small Hexagonal Socket Low Profile - [id number] Implanted:Qty: 3 on 05/27/2021 at [facility] Synthes I 204.826 / / Synthes 3.5mm 2.9mm 26mm Self Tap Lock Stardrive Conical Head T15 Full 212.109 - [id number] Implanted:Qty: 1 on 05/27/2021 at [facility] Synthes I 212.109 / / Explanted Type Area Rag Cutting Machine Feeder Device Identifier Shelf Expiration Date Model / Serial / Lot Synthes 202.822 2.7mm 5mm 22mm 2.5mm Self Tap Spherical Head Small Hexagonal - [id number] Explanted:Qty: 1 on 05/27/2021 at [facility] Synthes I 202.822 / / [employer] [id number] Lillian .062in 9in Trocar [employer] - [id number] Explanted:Qty: 1 on 05/27/2021 at [facility] [employer] [id number] / / [facility] MEDICARE AETNA SENIOR SUPPLEMENT MEDICARE AETNA SENIOR SUPPLEMENT Advance Directives For more information, please contact: [phone] * Full Code (Latest Code Status on File) Date Activated Date Inactivated Comments 05/25/2021 7:42 AM 05/29/2021 5:56 PM Care Teams Field Naturalist Relationship Specialty Start Date End Date Esperanza Harris MD [address] [place] [address] PCP - General Internal Medicine 06/12/21
--- OUTSIDE RECORDS SUMMARY | 2024-09-12 21:07 | XMS_ITS | Clinical Summary ---
Author Organization [facility] Address [address] [place] [address] Care Team Providers Care Experimental Assembler Name Role Phone Cory Mathis Primary Care Provider + Source Comments [facility],non-owned Affiliates and Associated Physician Practices is amultiple site organization consisting of ambulatory clinics and hospital sitesin [place], [place], [place] and [place]. This disclosure is being madepursuant to the Care Everywhere program and may not contain all information available regarding this patient. Last updated 17.[facility] Allergies No known active allergies Medications * Be aware that medications may not be up to date on this document. Alwaysverify current medications with the patient. 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 Gender Identity Not on file Sexual Orientation Not on file Last Filed Vital Signs Vital Sign Reading Time Taken Comments Blood Pressure 118/70 02/26/2016 9:22 AM MEDICAL OBSERVER Pulse 98 02/26/2016 9:22 AM MEDICAL OBSERVER Temperature 36.4 C (97.5 F) 02/26/2016 9:22 AM MEDICAL OBSERVER Respiratory Rate 18 02/26/2016 9:22 AM MEDICAL OBSERVER Oxygen Saturation - - Inhaled Oxygen Concentration - - Weight 99.8 kg (220 lb) 02/26/2016 9:22 AM MEDICAL OBSERVER Height 154.9 cm (5' 1) 02/08/2016 11:12 AM MEDICAL OBSERVER Body Mass Index 41.57 02/08/2016 11:12 AM MEDICAL OBSERVER Plan of Treatment Health Maintenance Due Date Last Done Comments BONE DENSITY TESTING 1955 COLOGUARD (AGES 45-75) - COL ON CA SCREENING 1954 COLON MONITORING 1954 COLONOSCOPY - COLON CA SCREENING 1954 CT COLONOGRAPHY - COLON CA SCREENING 1955 Colorectal Cancer Screening 1954 FIT - COLON CA SCREENING 1954 FLEX SIG - COLON CA SCREENING 1954 LIPID TESTING 1954 MAMMOGRAM 1954 HEPATITIS C SCREENING 09/27/1972 DTAP/TDAP/TD VACCINES (1 - Tdap) 1973 PNEUMOCOCCAL VACCINE 50+ (1 of 1 - PCV) 2004 ZOSTER VACCINE (1 of 2) 2004 Respiratory Syncytial Virus (RSV) Vaccine Pt: or over 60 yrs (1 - Risk 60-74 years 1-dose series) 2014 COVID-19 VACCINE ( - 2023-2 5 season) 2023 DEPRESSION SCREENING 02/23/2024 INFLUENZA VACCINE (#1) 2024 HEPATITIS B VACCINE Aged Out No longe r eligible based on patient's age to complete this topic HIB VACCINE Aged Out No longer eligi ble based on patient's age to complete this topic HPV VACCINE Aged Out No longer eligi ble based on patient's age to complete this topic MENINGOCOCCAL (Group B) VACC INE SHARED DECISION-MAKING Aged Out No longer eligibl e based on patient's age to complete this topic MENINGOCOCCAL GROUPS A/C/Y/W VACCINE Aged Out No longer eligible b ased on patient's age to complete this topic Insurance [facility] Care Teams Experimental Assembler Relationship Specialty [place] [address] [place] [phone] PCP - General Physician Lasting Machine Operator Hand Method 02/08/16
--- OUTSIDE RECORDS SUMMARY | 2024-09-12 21:08 | XMS_ITS ---
Author Organization [facility] Address [address] [facility] [address] [facility] [address] [place] [address] Care Team Providers Care Biometrician Name Role Phone Nils Holland Unavailable [phone] Encounters Encounter Location Date Provider Diagnosis [place] [facility] [address] [facility] [address] [place] [address] 10/27/2023 Nils Holland Plan Of Treatment No Information Progress Notes * Devan CHRISTIANSENB:1955 ([age] yo F)Acc No.[id number]:10/27/2023 Progress Notes Patient: Rmua GONZALEZ Provider: Guilherme WETZEL MD, F.Leroy.C.P, F.A.S.N. :1955 A ge:68 Y S ex:Female Date:10/27/2023 Address:[address] [place] [address] Subjective: * Chief Complaints: * * Medical History: Objective: * Vitals: Assessment: Plan: * Treatment: * Billing Information: * Visit Code: * Procedure Codes: * Electronic signature of James Holland MD on 09/12/2024 at 09:07 PM CDT Sign off status: Pending * Provider: Guilherme WETZEL MD, F.Leroy.C.P, F.A.S.N. Date: 10/27/2023 Generated for Printing/Faxing/eTransmitting on: 09/12/2024 09:07 PM CDT
[2024-09-12 21:32] VITALS: BP 147/77; PULSE 86; RESP 17; TEMP 36.6; O2SAT 97
[2024-09-13 01:06] VITALS: BP 152/88; PULSE 89; RESP 18; O2SAT 100
--- NOTE | 2024-09-13 01:13 | ED_ITS ---
HPI - Extremity Injury (Lower) General Chief Complaint: Extremity Injury, Lower Stated Complaint: L knee pain, worse after fall today Time Seen by Provider: 09/13/24 00:53 Source: patient Mode of arrival: EMS Limitations: no limitations History of Present Illness HPI Narrative: This is a 68-year-old female that presents to the emergency department for left knee pain. Ongoing over the last 2 days. No certain injury prior to it starting. Reports her knee gave out today causing her to fall. She landed on her bottom. She did not hit her head or lose consciousness. Reports her knee pain has worsened since making it difficult for her to ambulate. Denies decreased range of motion or numbness. Related Data Home Medications ?Medication ?Instructions ?Recorded ?Confirmed ?Last Taken ?Type rosuvastatin 10 mg tablet mg 10/09/19 08/09/24 Unknown History sertraline 100 mg tablet mg 10/09/19 08/09/24 Unknown History alendronate 70 mg tablet mg PO 11/27/23 08/09/24 Unknown History Allergies Allergy/AdvReac Type Severity Reaction Status Date / Time metronidazole Allergy Unknown Unknown Verified 09/12/24 21:38 codeine AdvReac Intermediate Vomiting Verified 09/12/24 21:38 Review of Systems Review of Systems: All systems reviewed & are unremarkable except as noted in HPI and below PMFSH Past Medical History Medical History (Updated 09/13/24 @ 01:14 by Kimberly Lin PA-C) History of hyperlipidemia Histoplasmosis Surgical History Surgical History (Updated 08/09/24 @ 14:09 by Isa Em CMA) History of surgery on arm History of carpal tunnel surgery Hx of cholecystectomy Social History Social History (Updated 08/09/24 @ 14:11 by Katherine Arevalo CMA) Smoking status: Former smoker Alcohol intake: never Substance use: never Do You Feel Safe in your Home?: Yes Lack of Transportation: No Lack of Food: Never True Current Housing: I Have Housing Concerned About Future Housing: No Difficulty Paying Gas/Electric Bills: YES Difficulty Paying for Meds: No Currently Unemployed: No Education: High School Diploma/GED Difficulty w/ Childcare or Family Care: No Gender identity (if verbalized by the patient): Female Exam Narrative: GENERAL: Well-appearing, well-nourished, and in no acute distress. HEAD: Normocephalic, atraumatic. EYES: EOMI. EXTREMITIES: Normal range of motion. No edema. Normal DP pulse. Normal sensation SKIN: Warm, dry, no rash. NEURO: No focal deficits. Alert and oriented x3. PSYCH: Normal mood and affect Course Vital Signs Vital signs: Vital Signs Temperature 97.9 F 09/12/24 21:32 Pulse Rate 86 09/12/24 21:32 Respiratory Rate 17 09/12/24 21:32 Blood Pressure 147/77 H 09/12/24 21:32 Pulse Oximetry 97 09/12/24 21:32 Oxygen Delivery Room Air 09/12/24 21:32 Temperature 97.9 F 09/12/24 21:32 Pulse Rate 89 09/13/24 01:06 Respiratory Rate 18 09/13/24 01:06 Blood Pressure 152/88 H 09/13/24 01:06 Pulse Oximetry 100 09/13/24 01:06 Oxygen Delivery Room Air 09/12/24 21:32 MDM - Extremity Injury (Lower) MDM Narrative Medical decision making narrative: Patient presents emergency department for left knee pain. Ongoing over the last 2 days. Patient is neurovascularly intact. Knee x-ray without acute osseous findings. Shows a small joint effusion. Patient updated on her workup and agrees with plan of care. Placed in an Lorenzo wrap. Will be given prescription for walker. Reports her son can help her at home. She has an appointment with Orthopedics today. She was given warnings to return to the ER Differential Diagnosis Differential diagnosis: Likely acute internal derangement of knee and other (Osteoarthritis) Imaging Data Radiologist's impression: ITS Impressions Knee X-Ray 09/12/24 22:31 IMPRESSION: No acute osseous finding in the left knee. Small left knee joint effusion. Anterior soft tissue stranding, correlate for contusion and/or patellar tendon pathology. Critical Care Time Critical Care Time Critical Care Time: No Discharge Plan Discharge Clinical Impression: Knee sprain Qualifiers: Encounter type: initial encounter Involved ligament of knee: unspecified ligament Laterality: left Qualified Code(s): S83.92XA - Sprain of unspecified site of left knee, initial encounter Osteoarthritis Qualifiers: Osteoarthritis location: knee Osteoarthritis type: unspecified Laterality: left Qualified Code(s): M17.12 - Unilateral primary osteoarthritis, left knee Patient Disposition: Home Condition: Stable Instructions: Knee Sprain (ED), Osteoarthritis (ED) Additional Instructions: Return to the ER if you experience fever, redness and swelling of your extremity, numbness or any other symptoms that are concerning to you Wear LORENZO wrap and use walker. Ice and elevate extremity. Tylenol or Ibuprofen as needed for pain Follow up with your orthopedics doctor for further care. Patient Language: Upper Sorbian Prescriptions: New (DME) walker Misc See Rx Instructions .Route Qty: 1 0RF Rx Instructions: As directed No Action alendronate 70 mg tablet PO sertraline 100 mg tablet rosuvastatin 10 mg tablet Follow-up/Referrals: Steven,MD Irma [Primary Care Provider] -
--- OUTSIDE RECORDS SUMMARY | 2024-09-13 01:16 | XMS_ITS | Continuity of Care Document ---
Author Organization [facility] Address [address] [place] [address] [place] [address] Phone Care Team Providers Care Hand Mixer Name Role Phone Unavailable Unavailable Unavailable Advance Directives Directive Yes / No Effective Date File Name No Information Encounters Encounter Description Practice Location Reason(s) For Visit Diagnoses Date Provider Providers Copied on Encounter [facility], [address], [place], [place], [id number], [place] tel:[phone] [facility] No Information 1200 0 No Information Family History Family Member Type Diagnosis Age At Onset No Information Payers Payer name Insurance type Covered republican ID Authoriza tion(s) No Information Social History [...]
--- OUTSIDE RECORDS SUMMARY | 2024-09-13 01:16 | XMS_ITS ---
Author Organization [facility] Address [address] [address] [place] [address] Care Team Providers Care Bladder Cleaner Name Role Phone Skyler Nils Unavailable [phone] Problems Problem Type SNOMED Code ICD Code Onset Dates Problem Status W/U Status Risk Notes Problem Chronic kidney disease stage 2 (766961103) Chronic kidney disease, stage 2 (mild) (N18.2) Active confirmed Problem Essential hypertension (35149681) Essential hypertension (I10) Active confirmed Problem Hyperlipidemia (36336784) Hyperlipidemia, unspecified (E78.5) Active confirmed Problem Obesity (825378778) Obesity, unspecified (E66.9) Active confirmed Encounters Encounter Location Date Provider Diagnosis [place] [facility] [address] [facility] [address] [place] [address] 10/01/2023 Nils Holland Chronic kidney disease, stage [...] * Fady CHRISTIANSENTavares:1955 ([age] yo F)Acc No.[id number]:10/01/2023 Progress Notes Patient: Ruma GONZALEZ Provider: Guilherme WETZEL MD, F.A.C.P, F.A.S.N. :1955 A ge:67 Y S ex:Female Date:10/01/2023 Address:[address] [place] [address] Subjective: * Chief Complaints: * * Medical History: Objective: * Vitals: Assessment: * Assessment: 1. C hronic kidney disease, stage 2 (mild) - N18.2 (Primary) 2 . E ssential hypertension - I10 3 . H yperlipidemia, unspecified - E78.5 4 .?Obesity, unspecified - E66.9 Plan: * Treatment: * Billing Information: * Visit Code: 85875 Office Visit, New Pt., Level 5. * Procedure Codes: * Electronic signature of James Holland MD on 09/13/2024 at 01:16 AM CDT Sign off status: Pending * Provider: Guilherme WETZEL MD, F.A.C.P, F.A.S.N. Date: 10/01/2023 Generated for Printing/Faxing/eTransmitting on: 09/13/2024 01:16 AM CDT
[2024-09-13] MEDS: ACETAMINOPHEN 500 MG TABLET 1000 MG PO (01:17)
--- OUTSIDE RECORDS SUMMARY | 2024-09-13 01:17 | XMS_ITS | Patient Health Record ---
Author Organization [facility] Address [address] [place] [address] Care Team Providers Care Human Relations Teacher Name Role Phone Anibal Hollandjit Unavailable [phone] Reason For Referral No Information Problems Problem Type SNOMED Code ICD Code Onset Dates Problem Status W/U Status Risk Notes Problem Obesity (286104195) Obesity, unspecified (E66.9) Active confirmed Problem Hyperlipidemia (39368128) Hyperlipidemia, unspecified (E78.5) Active confirmed Problem Chronic kidney disease stage 2 (889028799) Chronic kidney disease, stage 2 (mild) (N18.2) Active confirmed Problem Essential hypertension (01974796) Essential hypertension (I10) Active confirmed Encounters Encounter Location Date Provider Diagnosis [place] [facility] [address] [facility] [address] [place] [address] 10/01/2023 Nils Holland Chronic kidney disease, stage [...]
--- OUTSIDE RECORDS SUMMARY | 2024-09-13 01:17 | XMS_ITS ---
Author Organization [facility] Address [address] [facility] [address] [facility] [address] [place] [address] Care Team Providers Care Electronic Communications Technician Name Role Phone Nils Holland Unavailable [phone] Encounters Encounter Location Date Provider Diagnosis [place] [facility] [address] [facility] [address] [place] [address] 10/27/2023 Nils Holland Plan Of Treatment No Information Progress Notes * Devan CHRISTIANSENB:1955 ([age] yo F)Acc No.[id number]:10/27/2023 Progress Notes Patient: Ruma GONZALEZ Provider: Guilherme WETZEL MD, F.Leory.C.P, F.A.S.N. :1955 A ge:68 Y S ex:Female Date:10/27/2023 Address:[address] [place] [address] Subjective: * Chief Complaints: * * Medical History: Objective: * Vitals: Assessment: Plan: * Treatment: * Billing Information: * Visit Code: * Procedure Codes: * Electronic signature of James Holland MD on 09/13/2024 at 01:17 AM CDT Sign off status: Pending * Provider: Guilherme WETZEL MD, F.Leroy.C.P, F.A.S.N. Date: 10/27/2023 Generated for Printing/Faxing/eTransmitting on: 09/13/2024 01:17 AM CDT
--- OUTSIDE RECORDS SUMMARY | 2024-09-13 01:17 | XMS_ITS | Referral Summary ---
Author Organization [facility] Address [facility]ly [facility], [facility] [place] [address] Care Team Providers Care Organic Chemistry Professor Name Role Phone Esperanza Harris MD Primary [...] by oral route. 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 Gender Identity Not on file Sexual Orientation [...] on file Medical Devices Implanted Type Area Manager Pacu Device Identifier Shelf Expiration Date Model / Serial / Lot Synthes 3.5mm 2.9mm 45mm Self Tap Lock Stardrive Conical Head T15 Full 212.119 - [id number] Implanted:Qty: 1 on 05/27/2021 at [facility] Synthes I 212.119 / / Synthes 3.5mm 2.9mm 30mm Self Tap Lock Stardrive Conical Head T15 Full 212.111 - [id number] Implanted:Qty: 1 on 05/27/2021 at [facility] Synthes I 212.111 / / Synthes 3.5mm 2.9mm 38mm Self Tap Lock Stardrive Conical Head T15 Full 212.116 - [id number] Implanted:Qty: 1 on 05/27/2021 at [facility] Synthes I 212.116 / / Synthes 3.5mm 2.9mm 34mm Self Tap Lock Stardrive Conical Head Pelvis T15 212.113 - [id number] Implanted:Qty: 1 on 05/27/2021 at [facility] Synthes I 212.113 / / Synthes 3.5mm 2.9mm 48mm Self Tap Lock Fix Angle Low Profile Pelvis Full 212.120 - [id number] Implanted:Qty: 2 on 05/27/2021 at [facility] Synthes I 212.120 / / Synthes 3.5mm 2.9mm 44mm Self Tap Lock Stardrive Conical Head T15 Full 212.134 - [id number] Implanted:Qty: 1 on 05/27/2021 at [facility] Synthes I 212.134 / / Synthes 3.5mm 2.9mm 46mm Self Tap Lock Stardrive Conical Head T15 Full 212.136 - [id number] Implanted:Qty: 1 on 05/27/2021 at [facility] Synthes I 212.136 / / Synthes 2.7mm 5mm 32mm 2.5mm Self Tap Spherical Head Small Hexagonal 202.832 - [id number] Implanted:Qty: 1 on 05/27/2021 at [facility] Synthes I 202.832 / / Synthes Lcp Combi 98x10.1x3.5mm 7 Hole Reconstruction Plate Bone 245.071 - [id number] Implanted:Qty: 1 on 05/27/2021 at [facility] Synthes I 245.071 / / Synthes 204.818 3.5mm 6mm 18mm 2.5mm Self Tap Small Hexagonal Socket Low Profile - [id number] Implanted:Qty: 1 on 05/27/2021 at [facility] Synthes I 204.818 / / Synthes 204.820 3.5mm 6mm 20mm 2.5mm Self Tap Small Hexagonal Socket Low Profile - [id number] Implanted:Qty: 1 on 05/27/2021 at [facility] Synthes I 204.820 / / Synthes 3.5mm 2.9mm 10mm Self Tap Lock Stardrive Conical Head T15 Full 212.101 - [id number] Implanted:Qty: 2 on 05/27/2021 at [facility] Synthes I 212.101 / / Synthes Lcp Combi Philos Long [id number] 8 Hole Shaft Lock Compression 241.921 - [id number] Implanted:Qty: 1 on 05/27/2021 at [facility] Synthes I 241.921 / / Synthes 204.826 3.5mm 6mm 26mm 2.5mm Self Tap Small Hexagonal Socket Low Profile - [id number] Implanted:Qty: 3 on 05/27/2021 at [facility] Synthes I 204.826 / / Synthes 3.5mm 2.9mm 26mm Self Tap Lock Stardrive Conical Head T15 Full 212.109 - [id number] Implanted:Qty: 1 on 05/27/2021 at [facility] Synthes I 212.109 / / Explanted Type Area Manager Pacu Device Identifier Shelf Expiration Date Model / Serial / Lot Synthes 202.822 2.7mm 5mm 22mm 2.5mm Self Tap Spherical Head Small Hexagonal - [id number] Explanted:Qty: 1 on 05/27/2021 at [facility] Synthes I 202.822 / / [employer] [id number] Lillian .062in 9in Trocar [employer] Orthopedic Wire - [id number] Explanted:Qty: 1 on 05/27/2021 at [facility] [employer] [id number] / / Insurance MEDICARE [employer] SENIOR SUPPLEMENT MEDICARE A[employer] SENIOR SUPPLEMENT MEDICARE AET[employer] SENIOR SUPPLEMENT Advance Directives For more information, please contact: [phone] * Full Code (Latest Code Status on File) Date Activated Date Inactivated Comments 05/25/2021 7:42 AM 05/29/2021 5:56 PM Care Teams Organic Chemistry Professor Relationship Specialty Start Date End Date Esperanza Harris MD [address] [place] [address] PCP - General Internal Medicine 06/12/21
--- OUTSIDE RECORDS SUMMARY | 2024-09-13 01:17 | XMS_ITS | Clinical Summary ---
Author Organization [facility] Address [facility] [place] [address] Care Team Providers Care Worm Raiser Name Role Phone Esperanza Harris MD Primary [...] by oral route. 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 Gender Identity Not on file Sexual Orientation [...] 11/13/2021, 08/22 Medical Devices Implanted Type Area Mouse Breeder Device Identifier Shelf Expiration Date Model / Serial / Lot Synthes 3.5mm 2.9mm 45mm Self Tap Lock Stardrive Conical Head T15 Full 212.119 - [id number] Implanted:Qty: 1 on 05/27/2021 at [facility] Synthes I 212.119 / / Synthes 3.5mm 2.9mm 30mm Self Tap Lock Stardrive Conical Head T15 Full 212.111 - [id number] Implanted:Qty: 1 on 05/27/2021 at [facility] Synthe[employer] I 212.111 / / Synthes 3.5mm 2.9mm 38mm Self Tap Lock Stardrive Conical Head T15 Full 212.116 - [id number] Implanted:Qty: 1 on 05/27/2021 at [facility] Synthe[employer] I 212.116 / / Synthes 3.5mm 2.9mm 34mm Self Tap Lock Stardrive Conical Head Pelvis T15 212.113 - [id number] Implanted:Qty: 1 on 05/27/2021 at [facility] Synthes I 212.113 / / Synthes 3.5mm 2.9mm 48mm Self Tap Lock Fix Angle Low Profile Pelvis Full 212.120 - [id number] Implanted:Qty: 2 on 05/27/2021 at [facility] Synthe[employer] I 212.120 / / Synthes 3.5mm 2.9mm 44mm Self Tap Lock Stardrive Conical Head T15 Full 212.134 - [id number] Implanted:Qty: 1 on 05/27/2021 at [facility] Synthes I 212.134 / / Synthes 3.5mm 2.9mm 46mm Self Tap Lock Stardrive Conical Head T15 Full 212.136 - [id number] Implanted:Qty: 1 on 05/27/2021 at [facility] Synthes I 212.136 / / Synthes 2.7mm 5mm 32mm 2.5mm Self Tap Spherical Head Small Hexagonal 202.832 - [id number] Implanted:Qty: 1 on 05/27/2021 at [facility] Synthes I 202.832 / / Synthes Lcp Combi 98x10.1x3.5mm 7 Hole Reconstruction Plate Bone 245.071 - [id number] Implanted:Qty: 1 on 05/27/2021 at [facility] Synthes I 245.071 / / Synthes 204.818 3.5mm 6mm 18mm 2.5mm Self Tap Small Hexagonal Socket Low Profile - [id number] Implanted:Qty: 1 on 05/27/2021 at [facility] Synthes I 204.818 / / Synthes 204.820 3.5mm 6mm 20mm 2.5mm Self Tap Small Hexagonal Socket Low Profile - [id number] Implanted:Qty: 1 on 05/27/2021 at [facility] Synthes I 204.820 / / Synthes 3.5mm 2.9mm 10mm Self Tap Lock Stardrive Conical Head T15 Full 212.101 - [id number] Implanted:Qty: 2 on 05/27/2021 at [facility] Synthes I 212.101 / / Synthes Lcp Combi Philos Long [id number] 8 Hole Shaft Lock Compression 241.921 - [id number] Implanted:Qty: 1 on 05/27/2021 at [facility] Synthes I 241.921 / / Synthes 204.826 3.5mm 6mm 26mm 2.5mm Self Tap Small Hexagonal Socket Low Profile - [id number] Implanted:Qty: 3 on 05/27/2021 at [facility] Synthes I 204.826 / / Synthes 3.5mm 2.9mm 26mm Self Tap Lock Stardrive Conical Head T15 Full 212.109 - [id number] Implanted:Qty: 1 on 05/27/2021 at [facility] Synthe[employer] I 212.109 / / Explanted Type Area Mouse Breeder Device Identifier Shelf Expiration Date Model / Serial / Lot Synthes 202.822 2.7mm 5mm 22mm 2.5mm Self Tap Spherical Head Small Hexagonal - [id number] Explanted:Qty: 1 on 05/27/2021 at [facility] Synthes I 202.822 / / [employer] [id number] Lillian .062in 9in Trocar [employer] Wire - [id number] Explanted:Qty: 1 on 05/27/2021 at [facility] [employer] [id number] / / [facility] MEDICARE AETNA SENIOR SUPPLEMENT MEDICARE AETNA SENIOR SUPPLEMENT Advance Directives For more information, please contact: [phone] * Full Code (Latest Code Status on File) Date Activated Date Inactivated Comments 05/25/2021 7:42 AM 05/29/2021 5:56 PM Care Teams Worm Raiser Relationship Specialty Start Date End Date Esperanza Harris MD [address] [place] [address] PCP - General Internal Medicine 06/12/21
--- OUTSIDE RECORDS SUMMARY | 2024-09-13 01:17 | XMS_ITS | Clinical Summary ---
Author Organization [facility] Address [address], [place] [address] Phone Care Team Providers Care It Project Coordinator Name Role Phone Irma Harris MD Primary Care Provider [phone] Allergies Active Allergy Reactions Criticality Noted Date [...] AARP PM [address] [place] [address] [address] Care Teams It Project Coordinator Relationship Specialty Start Date End Date Irma Harris MD [facility] [place] [phone] PCP - General Family Medicine 11/02/23
--- OUTSIDE RECORDS SUMMARY | 2024-09-13 01:17 | XMS_ITS | Clinical Summary ---
Author Organization [facility] Address [address] [place] [address] Care Team Providers Care Covered Button Maker Name Role Phone Cory Mathis Primary Care Provider + Source Comments [facility],non-owned Affiliates and Associated Physician Practices is amultiple site organization consisting of ambulatory clinics and hospital sitesin [place], [place], [place] and [place]. This disclosure is being madepursuant to the Care Everywhere program and may not contain all information available regarding this patient. 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 Gender Identity Not on file Sexual Orientation Not on file Last Filed Vital Signs Vital Sign Reading Time Taken Comments Blood Pressure 118/70 02/26/2016 9:22 AM AERONAUTICAL DESIGN ENGINEER Pulse 98 02/26/2016 9:22 AM AERONAUTICAL DESIGN ENGINEER Temperature 36.4 C (97.5 F) 02/26/2016 9:22 AM AERONAUTICAL DESIGN ENGINEER Respiratory Rate 18 02/26/2016 9:22 AM AERONAUTICAL DESIGN ENGINEER Oxygen Saturation - - Inhaled Oxygen Concentration - - Weight 99.8 kg (220 lb) 02/26/2016 9:22 AM AERONAUTICAL DESIGN ENGINEER Height 154.9 cm (5' 1) 02/08/2016 11:12 AM AERONAUTICAL DESIGN ENGINEER Body Mass Index 41.57 02/08/2016 11:12 AM AERONAUTICAL DESIGN ENGINEER Plan of Treatment Health Maintenance Due Date [...] patient's age to complete this topic Insurance [facility] Care Teams Covered Button Maker Relationship Specialty [place] [address] [place] [phone] PCP - General Physician Manager Mental Health 02/08/16
== END 2024-09-13 02:12 | disposition home or self-care (01) ==
LOC: ANHED 09-13 01:15
PROVIDERS: Emergency Provider Physician Assistant; PCP Internal Medicine
DX: S83.92XA Sprain of unspecified site of left knee, initial encounter (principal); M17.12 Unilateral primary osteoarthritis, left knee; E78.5 Hyperlipidemia, unspecified; Z87.891 Personal history of nicotine dependence; Z90.49 Acquired absence of other specified parts of digestive tract; W18.39XA Other fall on same level, initial encounter
CPT/HCPCS: 73562; 99283; A9270